=== PATIENT | female | born 1945 | race Two or more races ===

== ENCOUNTER 2017-08-01 11:31 | Inpatient (IN) | payer MEDICARE, MEDICAID ==
[~2017-08-01] VITALS: Ht 160 cm; Wt 67.8 kg
[2017-08-01 12:17] LABS: Basophils # (auto) 0.1 uL; Basophils % (auto) 1.1 % (0.0-2.0); Eosinophils # (auto) 0.5 uL; Eosinophils % (auto) 6.4 % (0.0-7.0); Hematocrit 39.6 % (36.0-46.0); Lymphocytes # (auto) 3.4 uL; Lymphocytes % (auto) 41.7 % (10.0-50.0); Mean Corpuscular Hemoglobin 29.9 pg (28.0-32.0); Mean Corpuscular Hgb Conc. 32.9 g/dL (32.0-36.0); Mean Corpuscular Volume 90.6 fL (80.0-100.0); Monocytes # (auto) 0.5 uL; Monocytes % (auto) 6.1 % (0.0-12.0); Neutrophils # (auto) 3.6 uL; Neutrophils % (auto) 44.7 % (37.0-80.0); Nucleated Red Blood Cells % 0.2 %; Platelet Count (auto) 283 10^3/uL (140-450); Red Blood Cells 4.37 10^6/uL (4.0-5.20); White Blood Cell 8.1 10^3/uL (4.4-10.8)
[2017-08-01 12:31] LABS: INR 0.95 (0.9-1.15); Prothrombin Time 10.3 sec (9.37-12.3)
[2017-08-01 12:33] LABS: Albumin 3.3 g/dL (3.4-5.0); BUN/Creatinine Ratio 11.4; Bilirubin, Total 0.4 mg/dL (0.2-1.0); Calcium 8.6 mg/dL (8.5-10.1); Magnesium 2.4 mg/dL (1.6-2.6); Potassium 4.5 mmol/L (3.5-5.1); Total Protein 7.6 g/dL (6.4-8.2)
[2017-08-01] MEDS ORDERED: InsuLIN REG 1unit/0.01ml Soln (100units/ml) SC ONE (13:45)
[2017-08-01] MEDS ORDERED: ASPirin 81 mg TAB PO ONE (14:00)
[2017-08-01 14:24] LABS: Urine Bacteria NONE SEEN /hpf (None Seen); Urine Blood Negative /uL (Negative); Urine Specific Gravity 1.005 (1.001-1.035); Urine WBC 1 /hpf (0 - 5)
[2017-08-01] MEDS ORDERED: MORPHINE SULFATE 4 MG/ML SYR/VIAL IV PRN ×2 (15:15)
[2017-08-01] MEDS ORDERED: ACETAMINOPHEN 500 MG TAB PO PRN (15:15)
[2017-08-01] MEDS ORDERED: PANTOPRAZOLE 40 MG TAB PO ONE (15:15)
[2017-08-01] MEDS ORDERED: ENALAPRIL MALEATE 2.5 MG TAB PO ONE (15:15)
[2017-08-01] MEDS ORDERED: CARVEDILOL 3.125 MG TAB PO ONE (15:15)
[2017-08-01] MEDS ORDERED: DEXTROSE (50%) 50ML SYRG IV PRN ×2 (15:15→16:30)
[2017-08-01] MEDS ORDERED: NITROGLYCERIN 0.4 MG SL TAB SL PRN (15:15)
[2017-08-01] MEDS ORDERED: LACTULOSE 20Gm/30ML SOLN PO PRN (15:15)
[2017-08-01] MEDS ORDERED: HYDROcodone-ACET 5/325MG TAB PO PRN (15:15)
[2017-08-01] MEDS ORDERED: TEMAZEPAM 15 MG CAP PO PRN (15:15)
[2017-08-01] MEDS ORDERED: LORazepam 0.5 MG TAB PO PRN (15:15)
[2017-08-01] MEDS ORDERED: NITROGLYCERIN 0.2MG/HR TOPICAL PATCH TD ONE (15:15)
[2017-08-01] MEDS: SODIUM CHLORIDE 0.9% 1,000 ML IV SCH (15:44)
[2017-08-01] MEDS ORDERED: ACCU-CHEK COMFORT CURVE STRIP VI SCH (16:00)
[2017-08-01] MEDS ORDERED: LORazepam 2MG/ML-1ML VIAL IV PRN ×2 (16:45)
[2017-08-01 17:26] LABS: Cholesterol 169 mg/dL (< 200); HDL Cholesterol 45 mg/dL (40-59); LDL Cholesterol 92 mg/dL (< 100); Triglycerides 321 mg/dL (< 150)
[2017-08-01] MEDS: ACCU-CHEK COMFORT CURVE STRIP VI SCH ×2 (17:36→22:23)
[2017-08-01] MEDS: InsuLIN REG 1unit/0.01ml Soln (100units/ml) SC SCH ×2 (17:36→22:34)
[2017-08-01] MEDS ORDERED: ALBUTEROL SULF 2.5 MG/0.5ML(0.5%) NEB SOLN NEB PRN (18:45)
[2017-08-01] MEDS ORDERED: OSELTAMIVIR 75 MG CAP PO ONE (18:45)
[2017-08-01 19:07] VITALS: BP 124/67
[2017-08-01] MEDS: DOXYCYCLINE HYC 100MG/250ML 250 ML IV SCH (19:33)
[2017-08-01 20:03] LABS: Alcohol, Urine < 3.0 mg/dL (0-5); Amphetamine Screen, Urine NEGATIVE (NEGATIVE); Barbiturate Scree,Urine NEGATIVE (NEGATIVE); Benzodiazephine Screen, Urine NEGATIVE (NEGATIVE); Cannabinoid Screen, Urine NEGATIVE (NEGATIVE); Cocaine Screen, Urine NEGATIVE (NEGATIVE); Opiate Scree,Urine NEGATIVE (NEGATIVE); Phencyclidine Screen, Urine NEGATIVE (NEGATIVE)
[2017-08-01] MEDS: OSELTAMIVIR 30 MG CAP PO SCH (20:20)
[2017-08-01 20:30] VITALS: BP 135/66
[2017-08-01 22:00] VITALS: BP 135/66
[2017-08-01] MEDS ORDERED: ATORVASTATIN 20 MG TAB PO SCH (22:00)
[2017-08-01] MEDS: CARVEDILOL 3.125 MG TAB PO SCH (22:23)
[2017-08-01] MEDS: ATORVASTATIN 20 MG TAB PO SCH (22:23)
[2017-08-02] MEDS: ALBUTEROL SULF 2.5 MG/0.5ML(0.5%) NEB SOLN NEB SCH ×4 (01:12→19:47)
[2017-08-02] MEDS: SODIUM CHLORIDE 0.9% 1,000 ML IV SCH (04:59)
[2017-08-02 05:00] VITALS: BP 110/70
[2017-08-02] MEDS: InsuLIN REG 1unit/0.01ml Soln (100units/ml) SC SCH ×4 (06:35→22:02)
[2017-08-02] MEDS: ACCU-CHEK COMFORT CURVE STRIP VI SCH ×4 (06:35→21:39)
[2017-08-02] MEDS: DOXYCYCLINE HYC 100MG/250ML 250 ML IV SCH ×2 (06:36→18:29)
[2017-08-02 07:05] LABS: Albumin 3.4 g/dL (3.4-5.0); Calcium 8.6 mg/dL (8.5-10.1)
[2017-08-02 07:07] LABS: BUN/Creatinine Ratio 16.8
[2017-08-02 07:09] LABS: Bilirubin, Total 0.4 mg/dL (0.2-1.0); Total Protein 7.1 g/dL (6.4-8.2)
[2017-08-02 09:46] VITALS: BP 108/53
[2017-08-02 09:47] LABS: Folate (Folic Acid) 8.4 ng/mL (5.38-24)
[2017-08-02] MEDS: NITROGLYCERIN 0.2MG/HR TOPICAL PATCH TD SCH (10:00)
[2017-08-02] MEDS: PANTOPRAZOLE 40 MG TAB PO SCH (10:19)
[2017-08-02] MEDS: ASPirin 81 mg TAB PO SCH (10:19)
[2017-08-02] MEDS: ENALAPRIL MALEATE 2.5 MG TAB PO SCH (10:20)
[2017-08-02] MEDS: CARVEDILOL 3.125 MG TAB PO SCH ×2 (10:21→21:58)
[2017-08-02 13:00] VITALS: BP 132/77
[2017-08-02] MEDS ORDERED: SOD CHL 0.45% 1,000 ML IV ONE (16:00)
[2017-08-02] MEDS ORDERED: LEVO-28 PO (16:27)
[2017-08-02] MEDS ORDERED: HYDR25TA35 PO (16:27)
[2017-08-02] MEDS ORDERED: INSLANTI SC (16:27)
[2017-08-02] MEDS ORDERED: LEVO50TA7 PO (16:27)
[2017-08-02 16:46] VITALS: BP 80/44
[2017-08-02] MEDS: OSELTAMIVIR 30 MG CAP PO SCH (18:29)
[2017-08-02] MEDS ORDERED: LORazepam 2MG/ML-1ML VIAL IV PRN (19:30)
[2017-08-02] MEDS: PROMETHAZINE HCL 25 MG/ML 1ML IV PRN (19:48)
[2017-08-02] MEDS: ATORVASTATIN 20 MG TAB PO SCH (21:59)
[2017-08-02 22:00] VITALS: BP 109/49
[2017-08-03] MEDS: ALBUTEROL SULF 2.5 MG/0.5ML(0.5%) NEB SOLN NEB SCH ×4 (00:23→18:30)
[2017-08-03] MEDS: PROMETHAZINE HCL 25 MG/ML 1ML IV PRN ×2 (02:03→06:07)
[2017-08-03 05:00] VITALS: BP 119/56
[2017-08-03] MEDS: ACCU-CHEK COMFORT CURVE STRIP VI SCH ×4 (06:03→21:09)
[2017-08-03] MEDS: InsuLIN REG 1unit/0.01ml Soln (100units/ml) SC SCH ×4 (06:07→21:09)
[2017-08-03] MEDS: DOXYCYCLINE HYC 100MG/250ML 250 ML IV SCH ×2 (06:07→18:16)
[2017-08-03 06:38] LABS: Basophils # (auto) 0.1 uL; Basophils % (auto) 0.7 % (0.0-2.0); Eosinophils # (auto) 0.6 uL; Eosinophils % (auto) 5.7 % (0.0-7.0); Hematocrit 37.5 % (36.0-46.0); Hemoglobin 12.6 g/dL (12.2-16.2); Lymphocytes # (auto) 4.3 uL; Lymphocytes % (auto) 44.2 % (10.0-50.0); Mean Corpuscular Hemoglobin 30.4 pg (28.0-32.0); Mean Corpuscular Hgb Conc. 33.5 g/dL (32.0-36.0); Monocytes # (auto) 0.5 uL; Monocytes % (auto) 5.2 % (0.0-12.0); Neutrophils # (auto) 4.3 uL; Neutrophils % (auto) 44.2 % (37.0-80.0); Nucleated Red Blood Cells % 0.1 %; Platelet Count (auto) 265 10^3/uL (140-450); Red Blood Cells 4.12 10^6/uL (4.0-5.20); Red Cell Distribution Width 13.8 % (11.8-14.3); White Blood Cell 9.7 10^3/uL (4.4-10.8)
[2017-08-03 06:51] LABS: BUN/Creatinine Ratio 15.1; Calcium 8.6 mg/dL (8.5-10.1); Potassium 5.3 mmol/L (3.5-5.1)
[2017-08-03 09:06] VITALS: BP 119/60
[2017-08-03] MEDS: ENALAPRIL MALEATE 2.5 MG TAB PO SCH (09:23)
[2017-08-03] MEDS: PANTOPRAZOLE 40 MG TAB PO SCH (09:24)
[2017-08-03] MEDS: CARVEDILOL 3.125 MG TAB PO SCH ×2 (09:24→21:08)
[2017-08-03] MEDS: ASPirin 81 mg TAB PO SCH (09:24)
[2017-08-03] MEDS: NITROGLYCERIN 0.2MG/HR TOPICAL PATCH TD SCH (09:26)
[2017-08-03] MEDS ORDERED: LEVO50TA7 PO (09:37)
[2017-08-03] MEDS ORDERED: LEVEMIR SC (09:37)
[2017-08-03] MEDS ORDERED: LEVOTHYROXINE SODIUM 50 MCG TAB PO ONE (10:00)
[2017-08-03 12:00] VITALS: BP 93/52
[2017-08-03] MEDS ORDERED: ASPI81CH43 PO (13:02)
[2017-08-03] MEDS ORDERED: ATOR20TA50 PO (13:02)
[2017-08-03] MEDS ORDERED: ENA2.5T PO (13:02)
[2017-08-03] MEDS ORDERED: CAR3125T PO (13:02)
[2017-08-03 17:00] VITALS: BP 94/50
[2017-08-03] MEDS: ATORVASTATIN 20 MG TAB PO SCH (21:07)
[2017-08-03 21:31] VITALS: BP 133/70
[2017-08-03] MEDS ORDERED: INSULIN LANTUS (GLARGINE) 1 /0.01ml (100units/ml) SC SCH (22:00)
[2017-08-03 23:04] VITALS: BP 119/69
[2017-08-04] MEDS: ALBUTEROL SULF 2.5 MG/0.5ML(0.5%) NEB SOLN NEB SCH ×3 (00:48→12:00)
[2017-08-04 04:45] VITALS: BP 102/57
[2017-08-04] MEDS: DOXYCYCLINE HYC 100MG/250ML 250 ML IV SCH (06:12)
[2017-08-04] MEDS: ACCU-CHEK COMFORT CURVE STRIP VI SCH ×3 (06:17→17:32)
[2017-08-04] MEDS: InsuLIN REG 1unit/0.01ml Soln (100units/ml) SC SCH ×3 (06:17→17:32)
[2017-08-04 06:22] LABS: Basophils # (auto) 0.1 uL; Basophils % (auto) 0.9 % (0.0-2.0); Eosinophils # (auto) 0.5 uL; Eosinophils % (auto) 5.8 % (0.0-7.0); Hematocrit 36.9 % (36.0-46.0); Hemoglobin 12.3 g/dL (12.2-16.2); Lymphocytes # (auto) 3.7 uL; Lymphocytes % (auto) 42.9 % (10.0-50.0); Mean Corpuscular Hemoglobin 30.1 pg (28.0-32.0); Mean Corpuscular Hgb Conc. 33.4 g/dL (32.0-36.0); Mean Corpuscular Volume 90.4 fL (80.0-100.0); Monocytes # (auto) 0.6 uL; Monocytes % (auto) 6.5 % (0.0-12.0); Neutrophils # (auto) 3.8 uL; Neutrophils % (auto) 43.9 % (37.0-80.0); Nucleated Red Blood Cells % 0.1 %; Platelet Count (auto) 269 10^3/uL (140-450); Red Blood Cells 4.08 10^6/uL (4.0-5.20); White Blood Cell 8.7 10^3/uL (4.4-10.8)
[2017-08-04 06:41] LABS: BUN/Creatinine Ratio 18.7; Calcium 8.6 mg/dL (8.5-10.1); Potassium 5.2 mmol/L (3.5-5.1)
[2017-08-04] MEDS ORDERED: LEVOTHYROXINE SODIUM 50 MCG TAB PO SCH (07:00)
[2017-08-04] MEDS: ASPirin 81 mg TAB PO SCH (08:56)
[2017-08-04] MEDS: PANTOPRAZOLE 40 MG TAB PO SCH (08:56)
[2017-08-04 09:00] VITALS: BP 90/49
[2017-08-04] MEDS: CARVEDILOL 3.125 MG TAB PO SCH (09:38)
[2017-08-04] MEDS: ENALAPRIL MALEATE 2.5 MG TAB PO SCH (09:39)
[2017-08-04] MEDS: NITROGLYCERIN 0.2MG/HR TOPICAL PATCH TD SCH (09:39)
[2017-08-04] MEDS ORDERED: INSLANTI SC (10:08)
[2017-08-04] MEDS ORDERED: LEV50T PO (10:13)
[2017-08-04] MEDS ORDERED: SODIUM POLYSTYRENE SULF 15GM/60ML SUSP PO ONE (10:15)
[2017-08-04 11:19] VITALS: BP 90/49
[2017-08-04 13:00] VITALS: BP 103/62
[2017-08-04 16:48] VITALS: BP 81/54
== END 2017-08-04 18:30 | disposition home health service (06) | DRG 638 ==
LOC: EDBD 11:31 → ER 11:31 → TELE 11:32 → TELE-EAST 18:46
PROVIDERS: ADMIT Internal Medicine; ATTEND Internal Medicine
DX: E11.65 Type 2 diabetes mellitus with hyperglycemia (principal); N18.4 Chronic kidney disease, stage 4 (severe); E11.22 Type 2 diabetes mellitus with diabetic chronic kidney disease; G45.9 Transient cerebral ischemic attack, unspecified; H53.461 Homonymous bilateral field defects, right side; R55 Syncope and collapse; I16.0 Hypertensive urgency; E78.5 Hyperlipidemia, unspecified; E03.9 Hypothyroidism, unspecified; H53.40 Unspecified visual field defects; H54.40 Blindness, one eye, unspecified eye; H54.61 Unqualified visual loss, right eye, normal vision left eye; H54.62 Unqualified visual loss, left eye, normal vision right eye; I12.9 Hypertensive chronic kidney disease with stage 1 through stage 4 chronic kidney disease, or unspecified chronic kidney disease; Z91.14 Patient's other noncompliance with medication regimen; Z79.899 Other long term (current) drug therapy; Z79.82 Long term (current) use of aspirin; Z86.73 Personal history of transient ischemic attack (TIA), and cerebral infarction without residual deficits; Z83.3 Family history of diabetes mellitus
CPT/HCPCS: 36415; 70450; 71045; 76775; 80048; 80053; 80061; 80307; 81001; 82550; 82607; 82746; 82962; 83036; 83735; 83880; 84443; 84484; 85025; 85610; 85652; 85730; 87070; 87205; 87493; 87804; 93005; 93306; 93886; 94640; 94761; 95819; 96360; 96372; 97116; 97163; 97530; G9035; J1815; J3490

== ENCOUNTER 2018-03-28 17:09 | Inpatient (IN) | payer MEDICARE, MEDICAID ==
[~2018-03-28] VITALS: Ht 157.5 cm; Wt 62.9 kg
[~2018-03-28 17:09] MED LIST: ASPI81CH43 PO; ATOR20TA50 PO; CAR3125T PO; ENA2.5T PO; INSLANTI SC; LEV50T PO; LEVO50TA7 PO
[2018-03-28] MEDS ORDERED: ONDANSETRON HCL 4 MG/2 ML VIAL IV ONE ×2 (19:15→21:45)
[2018-03-28] MEDS ORDERED: MORPHINE SULFATE 4 MG/ML SYR/VIAL IV ONE (19:15)
[2018-03-28 19:31] LABS: Basophils # (auto) 0.1 uL; Basophils % (auto) 0.4 % (0.0-2.0); Eosinophils # (auto) 0.4 uL; Eosinophils % (auto) 2.4 % (0.0-7.0); Hematocrit 39.8 % (36.0-46.0); Lymphocytes # (auto) 3.7 uL; Lymphocytes % (auto) 20.8 % (10.0-50.0); Mean Corpuscular Hemoglobin 29.2 pg (28.0-32.0); Mean Corpuscular Hgb Conc. 32.6 g/dL (32.0-36.0); Mean Corpuscular Volume 89.6 fL (80.0-100.0); Monocytes % (auto) 5.6 % (0.0-12.0); Neutrophils # (auto) 12.6 uL; Neutrophils % (auto) 70.8 % (37.0-80.0); Nucleated Red Blood Cells % 0.1 %; Platelet Count (auto) 322 10^3/uL (140-450); Red Blood Cells 4.44 10^6/uL (4.0-5.20); Red Cell Distribution Width 13.4 % (11.8-14.3); White Blood Cell 17.8 10^3/uL (4.4-10.8)
[2018-03-28 19:47] LABS: BUN/Creatinine Ratio 14.8; Calcium 9.2 mg/dL (8.5-10.1); INR 0.9 (0.9-1.15); Potassium 4.1 mmol/L (3.5-5.1); Prothrombin Time 9.7 sec (9.27-12.13)
[2018-03-28] MEDS ORDERED: ACETAMINOPHEN 500 MG TAB PO PRN (21:45)
[2018-03-28] MEDS ORDERED: HYDROmorphone HCL 2 MG/ML VL IV ONE (21:45)
[2018-03-28] MEDS: ACCU-CHEK COMFORT CURVE STRIP VI SCH (22:00)
[2018-03-28] MEDS ORDERED: DEXTROSE (50%) 50ML SYRG IV PRN (22:00)
[2018-03-28] MEDS: InsuLIN REG 1unit/0.01ml Soln (100units/ml) SC SCH (22:45)
[2018-03-29] VITALS (7 sets, daily range): BP systolic 82–120; BP diastolic 44–63
[2018-03-29] MEDS: ONDANSETRON HCL 4 MG/2 ML VIAL IV PRN (00:07)
[2018-03-29] MEDS: ACCU-CHEK COMFORT CURVE STRIP VI SCH ×4 (06:11→20:37)
[2018-03-29] MEDS: InsuLIN REG 1unit/0.01ml Soln (100units/ml) SC SCH ×4 (06:27→20:43)
[2018-03-29 06:44] LABS: Basophils # (auto) 0 uL; Basophils % (auto) 0.4 % (0.0-2.0); Eosinophils # (auto) 0.1 uL; Hematocrit 37.3 % (36.0-46.0); Hemoglobin 12.2 g/dL (12.2-16.2); Lymphocytes # (auto) 2.3 uL; Lymphocytes % (auto) 16.3 % (10.0-50.0); Mean Corpuscular Hemoglobin 29.4 pg (28.0-32.0); Mean Corpuscular Hgb Conc. 32.6 g/dL (32.0-36.0); Mean Corpuscular Volume 90.2 fL (80.0-100.0); Monocytes # (auto) 1.2 uL; Monocytes % (auto) 8.3 % (0.0-12.0); Neutrophils # (auto) 10.3 uL; Nucleated Red Blood Cells % 0.1 %; Platelet Count (auto) 268 10^3/uL (140-450); Red Blood Cells 4.14 10^6/uL (4.0-5.20); Red Cell Distribution Width 13.5 % (11.8-14.3); White Blood Cell 13.9 10^3/uL (4.4-10.8)
[2018-03-29 06:53] LABS: Urine Bacteria FEW /hpf (None Seen); Urine Blood Negative /uL (Negative); Urine Mucus FEW (None Seen); Urine Specific Gravity 1.012 (1.001-1.035); Urine WBC 6 /hpf (0 - 5)
[2018-03-29 07:04] LABS: BUN/Creatinine Ratio 14.5; Calcium 8.5 mg/dL (8.5-10.1); Potassium 4.1 mmol/L (3.5-5.1)
[2018-03-29] MEDS ORDERED: SODIUM CHLORIDE 0.9% 1,000 ML IV ONE (11:45)
[2018-03-29] MEDS ORDERED: cefTRIAXone 1GM/50ML D5W 50 ML IV ONE (13:00)
[2018-03-29] MEDS ORDERED: diphenhdrAMINE HCL 25 MG CAP PO PRN (13:15)
[2018-03-29] MEDS ORDERED: PANTOPRAZOLE 40 MG/10 ML VIAL IV ONE (13:15)
[2018-03-29] MEDS: HYDROcodone-ACET 5/325MG TAB PO PRN ×2 (13:26→20:37)
[2018-03-29] MEDS ORDERED: ENOXAPARIN SOD 60 MG/0.6 ML SYRINGE SC ONE (16:45)
[2018-03-29] MEDS ORDERED: CLOPIDOGREL BISULFATE 75 MG TAB PO ONE (16:45)
[2018-03-30] MEDS ORDERED: D5W/SOD CHLO 0.9% 1,000 ML IV SCH (00:30)
[2018-03-30] MEDS: HYDROcodone-ACET 5/325MG TAB PO PRN ×3 (00:45→19:39)
[2018-03-30 05:40] VITALS: BP 126/61
[2018-03-30 06:10] LABS: Basophils # (auto) 0 uL; Basophils % (auto) 0.3 % (0.0-2.0); Eosinophils # (auto) 0.2 uL; Eosinophils % (auto) 1.6 % (0.0-7.0); Hematocrit 33.9 % (36.0-46.0); Hemoglobin 10.9 g/dL (12.2-16.2); Lymphocytes # (auto) 2.5 uL; Lymphocytes % (auto) 22.1 % (10.0-50.0); Mean Corpuscular Hemoglobin 29.3 pg (28.0-32.0); Mean Corpuscular Hgb Conc. 32.2 g/dL (32.0-36.0); Mean Corpuscular Volume 90.9 fL (80.0-100.0); Monocytes % (auto) 8.6 % (0.0-12.0); Neutrophils # (auto) 7.7 uL; Neutrophils % (auto) 67.4 % (37.0-80.0); Nucleated Red Blood Cells % 0.1 %; Platelet Count (auto) 255 10^3/uL (140-450); Red Blood Cells 3.73 10^6/uL (4.0-5.20); Red Cell Distribution Width 13.4 % (11.8-14.3); White Blood Cell 11.4 10^3/uL (4.4-10.8)
[2018-03-30] MEDS: ACCU-CHEK COMFORT CURVE STRIP VI SCH ×5 (06:34→20:07)
[2018-03-30 06:36] LABS: Albumin 2.8 g/dL (3.4-5.0); BUN/Creatinine Ratio 11.8; Calcium 8.3 mg/dL (8.5-10.1)
[2018-03-30 06:40] LABS: Bilirubin, Total 0.3 mg/dL (0.2-1.0); Total Protein 6.7 g/dL (6.4-8.2)
[2018-03-30] MEDS: MORPHINE SULFATE 4 MG/ML SYR/VIAL IV PRN (06:58)
[2018-03-30] MEDS ORDERED: DEXTROSE (50%) 50ML SYRG IV PRN (07:00)
[2018-03-30] MEDS ORDERED: SODIUM CHLORIDE 0.9% 1,000 ML IV SCH (07:00)
[2018-03-30] MEDS: InsuLIN REG 1unit/0.01ml Soln (100units/ml) SC SCH ×5 (07:05→20:07)
[2018-03-30 07:17] LABS: Potassium 5.9 mmol/L (3.5-5.1)
[2018-03-30] MEDS ORDERED: InsuLIN REG 1unit/0.01ml Soln (100units/ml) IV ONE (08:00)
[2018-03-30] MEDS ORDERED: SODIUM POLYSTYRENE SULF 15 GM POWDER PO ONE (08:00)
[2018-03-30] MEDS ORDERED: CALCIUM GLUC 4.65meq/50ml D5AE 50 ML IV ONE (08:00)
[2018-03-30] MEDS ORDERED: DEXTROSE (50%) 50ML SYRG IV ONE ×2 (08:00→10:45)
[2018-03-30] MEDS ORDERED: SODIUM BICARBONATE 8.4 % INJ 50ML VIAL IV ONE (08:00)
[2018-03-30 08:46] VITALS: BP 129/69
[2018-03-30 09:01] LABS: Potassium 4.5 mmol/L (3.5-5.1)
[2018-03-30] MEDS: cefTRIAXone 1GM/50ML D5W 50 ML IV SCH (09:54)
[2018-03-30] MEDS ORDERED: CLOPIDOGREL BISULFATE 75 MG TAB PO SCH (10:00)
[2018-03-30] MEDS: ENOXAPARIN SOD 60 MG/0.6 ML SYRINGE SC SCH (10:00)
[2018-03-30] MEDS: PANTOPRAZOLE 40 MG/10 ML VIAL IV SCH (12:29)
[2018-03-30 12:50] VITALS: BP 121/55
[2018-03-30] MEDS: SODIUM BICARBONATE 50ML VIAL 50 ML in D5W/SOD CHL 0.45% 1,000 ML IV SCH ×2 (13:23→21:15)
[2018-03-30 16:36] LABS: Protein, Urine 16.4 mg/dL (0.0-11.9)
[2018-03-30 17:00] VITALS: BP 132/74
[2018-03-30 21:56] VITALS: BP 128/65
[2018-03-30] MEDS: ONDANSETRON HCL 4 MG/2 ML VIAL IV PRN (22:37)
[2018-03-31] MEDS: ACCU-CHEK COMFORT CURVE STRIP VI SCH ×6 (00:02→19:56)
[2018-03-31] MEDS: InsuLIN REG 1unit/0.01ml Soln (100units/ml) SC SCH ×6 (00:02→19:56)
[2018-03-31 04:56] VITALS: BP 118/67
[2018-03-31] MEDS: ONDANSETRON HCL 4 MG/2 ML VIAL IV PRN ×2 (05:14→15:43)
[2018-03-31 05:53] LABS: Albumin 3.1 g/dL (3.4-5.0); Calcium 8.6 mg/dL (8.5-10.1); Potassium 4.4 mmol/L (3.5-5.1)
[2018-03-31 05:56] LABS: BUN/Creatinine Ratio 10.5; Bilirubin, Total 0.4 mg/dL (0.2-1.0); Phosphorus 3.1 mg/dL (2.5-4.90); Total Protein 7.3 g/dL (6.4-8.2)
[2018-03-31] MEDS: SODIUM BICARBONATE 50ML VIAL 50 ML in D5W/SOD CHL 0.45% 1,000 ML IV SCH ×2 (08:11→14:53)
[2018-03-31] MEDS: HYDROcodone-ACET 5/325MG TAB PO PRN ×2 (08:35→19:56)
[2018-03-31 09:00] VITALS: BP 131/70
[2018-03-31] MEDS: cefTRIAXone 1GM/50ML D5W 50 ML IV SCH (09:44)
[2018-03-31] MEDS: ENOXAPARIN SOD 60 MG/0.6 ML SYRINGE SC SCH (09:45)
[2018-03-31] MEDS: PANTOPRAZOLE 40 MG/10 ML VIAL IV SCH (09:45)
[2018-03-31 13:00] VITALS: BP 100/51
[2018-03-31 16:55] VITALS: BP 141/78
[2018-03-31 21:35] VITALS: BP 126/62
[2018-04-01] MEDS: ACCU-CHEK COMFORT CURVE STRIP VI SCH ×6 (00:03→20:00)
[2018-04-01] MEDS: InsuLIN REG 1unit/0.01ml Soln (100units/ml) SC SCH ×6 (00:03→20:38)
[2018-04-01] MEDS: HYDROcodone-ACET 5/325MG TAB PO PRN (00:04)
[2018-04-01 04:42] VITALS: BP 121/60
[2018-04-01] MEDS: SODIUM BICARBONATE 50ML VIAL 50 ML in D5W/SOD CHL 0.45% 1,000 ML IV SCH ×2 (04:45→15:15)
[2018-04-01] MEDS: MORPHINE SULFATE 4 MG/ML SYR/VIAL IV PRN ×2 (05:18→12:27)
[2018-04-01 06:08] LABS: Basophils # (auto) 0.1 uL; Basophils % (auto) 0.5 % (0.0-2.0); Eosinophils # (auto) 0.2 uL; Eosinophils % (auto) 1.8 % (0.0-7.0); Hematocrit 33.3 % (36.0-46.0); Hemoglobin 10.8 g/dL (12.2-16.2); Lymphocytes # (auto) 1.7 uL; Lymphocytes % (auto) 13.6 % (10.0-50.0); Mean Corpuscular Hemoglobin 29.2 pg (28.0-32.0); Mean Corpuscular Hgb Conc. 32.3 g/dL (32.0-36.0); Mean Corpuscular Volume 90.3 fL (80.0-100.0); Neutrophils # (auto) 9.5 uL; Neutrophils % (auto) 76.1 % (37.0-80.0); Nucleated Red Blood Cells % 0.1 %; Platelet Count (auto) 275 10^3/uL (140-450); Red Blood Cells 3.69 10^6/uL (4.0-5.20); Red Cell Distribution Width 12.8 % (11.8-14.3); White Blood Cell 12.5 10^3/uL (4.4-10.8)
[2018-04-01 06:17] LABS: INR 0.89 (0.9-1.15); Partial Thromboplastin Time 28.7 sec (23.78-33.04); Prothrombin Time 9.6 sec (9.27-12.13)
[2018-04-01 06:37] LABS: Potassium 3.9 mmol/L (3.5-5.1)
[2018-04-01 06:42] LABS: Albumin 2.7 g/dL (3.4-5.0); BUN/Creatinine Ratio 8.8; Calcium 8.2 mg/dL (8.5-10.1)
[2018-04-01 06:45] LABS: Bilirubin, Total 0.5 mg/dL (0.2-1.0); Total Protein 6.9 g/dL (6.4-8.2)
[2018-04-01 08:56] VITALS: BP 130/70
[2018-04-01] MEDS: cefTRIAXone 1GM/50ML D5W 50 ML IV SCH ×2 (09:03→11:56)
[2018-04-01] MEDS: PANTOPRAZOLE 40 MG/10 ML VIAL IV SCH ×2 (09:03→11:45)
[2018-04-01 13:00] VITALS: BP 105/53
[2018-04-01] MEDS ORDERED: MEPERIDINE HCL (50 MG/ML) 1 ML VIAL ONE (13:09)
[2018-04-01] MEDS ORDERED: ROCURONIUM 10MG/ML 10ML VIAL IV ONE (13:09)
[2018-04-01] MEDS ORDERED: fentaNYL CITRATE 100 MCG/2 ML VL ONE ×2 (13:09→13:24)
[2018-04-01] MEDS ORDERED: SUCCINYLCHOLINE CHLORIDE 20 MG/ML 10ML VIAL IV ONE (13:09)
[2018-04-01] MEDS ORDERED: SODIUM CHLORIDE LOCK 10 ML ONE (13:09)
[2018-04-01] MEDS ORDERED: ETOMIDATE (2MG/ML) 20ML VIAL IV ONE (13:09)
[2018-04-01] MEDS ORDERED: KETOROLAC TROMETH 60MG/2ML VIAL IM ONE (13:09)
[2018-04-01] MEDS ORDERED: ONDANSETRON HCL 4 MG/2 ML VIAL IV ONE (13:09)
[2018-04-01] MEDS ORDERED: MIDAZOLAM HCL 1MG/1ML-2 ML VIAL ONE (13:09)
[2018-04-01] MEDS ORDERED: BUPIVACAINE 0.75% INJ 10ML MPV SDV IJ ONE (13:22)
[2018-04-01] MEDS ORDERED: HYDROmorphone HCL 2 MG/ML VL IV PRN (13:30)
[2018-04-01] MEDS ORDERED: METOCLOPRAMIDE HCL 5MG/ml INJ 2ml VIAL IV ONE (13:30)
[2018-04-01] MEDS ORDERED: ACCU-CHEK COMFORT CURVE STRIP VI ONE (13:30)
[2018-04-01] MEDS ORDERED: ceFAZolin 1GM VL ONE (13:38)
[2018-04-01 18:05] VITALS: BP 98/56
[2018-04-01 22:00] VITALS: BP 131/69
[2018-04-02] MEDS: InsuLIN REG 1unit/0.01ml Soln (100units/ml) SC SCH ×6 (00:32→20:24)
[2018-04-02] MEDS: SODIUM BICARBONATE 50ML VIAL 50 ML in D5W/SOD CHL 0.45% 1,000 ML IV SCH ×2 (00:34→12:06)
[2018-04-02] MEDS: ACCU-CHEK COMFORT CURVE STRIP VI SCH ×6 (04:00→20:24)
[2018-04-02 05:28] VITALS: BP 128/66
[2018-04-02 05:50] LABS: Basophils # (auto) 0.1 uL; Basophils % (auto) 0.5 % (0.0-2.0); Eosinophils # (auto) 0.4 uL; Eosinophils % (auto) 3.3 % (0.0-7.0); Hematocrit 30.3 % (36.0-46.0); Hemoglobin 9.9 g/dL (12.2-16.2); Lymphocytes # (auto) 2.2 uL; Lymphocytes % (auto) 17.5 % (10.0-50.0); Mean Corpuscular Hemoglobin 29.6 pg (28.0-32.0); Mean Corpuscular Hgb Conc. 32.7 g/dL (32.0-36.0); Mean Corpuscular Volume 90.5 fL (80.0-100.0); Monocytes # (auto) 1.2 uL; Monocytes % (auto) 9.7 % (0.0-12.0); Neutrophils # (auto) 8.6 uL; Platelet Count (auto) 265 10^3/uL (140-450); Red Blood Cells 3.34 10^6/uL (4.0-5.20); Red Cell Distribution Width 13.1 % (11.8-14.3); White Blood Cell 12.4 10^3/uL (4.4-10.8)
[2018-04-02 06:05] LABS: Potassium 3.7 mmol/L (3.5-5.1)
[2018-04-02 06:23] LABS: Albumin 2.2 g/dL (3.4-5.0); BUN/Creatinine Ratio 8.1; Bilirubin, Total 0.4 mg/dL (0.2-1.0); Calcium 7.7 mg/dL (8.5-10.1); Total Protein 6.2 g/dL (6.4-8.2)
[2018-04-02 08:40] VITALS: BP 129/78
[2018-04-02] MEDS: PANTOPRAZOLE 40 MG/10 ML VIAL IV SCH (10:25)
[2018-04-02] MEDS: cefTRIAXone 1GM/50ML D5W 50 ML IV SCH (10:25)
[2018-04-02] MEDS: HYDROcodone-ACET 5/325MG TAB PO PRN ×2 (10:32→16:35)
[2018-04-02 13:00] VITALS: BP 135/68
[2018-04-02] MEDS ORDERED: MORPHINE SULFATE 4 MG/ML SYR/VIAL IV PRN (16:30)
[2018-04-02 17:00] VITALS: BP 152/77
[2018-04-02] MEDS: SODIUM CHLORIDE 0.9% 1,000 ML IV SCH (17:24)
[2018-04-02 18:02] LABS: Urine Bacteria NONE SEEN /hpf (None Seen); Urine Blood Negative /uL (Negative); Urine Specific Gravity 1.005 (1.001-1.035); Urine WBC 1 /hpf (0 - 5)
[2018-04-02 20:00] VITALS: BP 118/57
[2018-04-02 22:00] VITALS: BP 118/57
[2018-04-03] MEDS: ACCU-CHEK COMFORT CURVE STRIP VI SCH ×6 (00:25→19:36)
[2018-04-03] MEDS: InsuLIN REG 1unit/0.01ml Soln (100units/ml) SC SCH ×6 (04:00→19:36)
[2018-04-03 05:00] VITALS: BP 131/71
[2018-04-03 05:21] LABS: Basophils # (auto) 0 uL; Basophils % (auto) 0.4 % (0.0-2.0); Eosinophils # (auto) 0.2 uL; Eosinophils % (auto) 1.5 % (0.0-7.0); Hematocrit 30.1 % (36.0-46.0); Hemoglobin 9.8 g/dL (12.2-16.2); Lymphocytes % (auto) 15.9 % (10.0-50.0); Mean Corpuscular Hemoglobin 29.1 pg (28.0-32.0); Mean Corpuscular Hgb Conc. 32.5 g/dL (32.0-36.0); Mean Corpuscular Volume 89.5 fL (80.0-100.0); Monocytes # (auto) 1.2 uL; Monocytes % (auto) 9.2 % (0.0-12.0); Neutrophils # (auto) 9.2 uL; Nucleated Red Blood Cells % 0.1 %; Platelet Count (auto) 294 10^3/uL (140-450); Red Blood Cells 3.36 10^6/uL (4.0-5.20); White Blood Cell 12.7 10^3/uL (4.4-10.8)
[2018-04-03] MEDS: SODIUM CHLORIDE 0.9% 1,000 ML IV SCH ×2 (05:27→19:36)
[2018-04-03 05:37] LABS: Albumin 2.2 g/dL (3.4-5.0); BUN/Creatinine Ratio 9.9; Calcium 7.6 mg/dL (8.5-10.1); Magnesium 1.8 mg/dL (1.6-2.6)
[2018-04-03 05:40] LABS: Bilirubin, Total 0.4 mg/dL (0.2-1.0); Total Protein 6.5 g/dL (6.4-8.2)
[2018-04-03 08:51] VITALS: BP 121/69
[2018-04-03] MEDS: cefTRIAXone 1GM/50ML D5W 50 ML IV SCH (09:10)
[2018-04-03] MEDS: PANTOPRAZOLE 40 MG/10 ML VIAL IV SCH (09:10)
[2018-04-03] MEDS: HYDROcodone-ACET 5/325MG TAB PO PRN ×3 (09:11→19:37)
[2018-04-03 12:56] VITALS: BP 119/60
[2018-04-03] MEDS ORDERED: MAGNESIUM SULFATE 1GM/100ML 100 ML IV ONE (13:00)
[2018-04-03 17:00] VITALS: BP 128/64
[2018-04-03 20:00] VITALS: BP 126/55
[2018-04-03 22:00] VITALS: BP 126/55
[2018-04-04] MEDS: InsuLIN REG 1unit/0.01ml Soln (100units/ml) SC SCH ×7 (00:30→20:19)
[2018-04-04] MEDS: ACCU-CHEK COMFORT CURVE STRIP VI SCH ×6 (04:26→20:19)
[2018-04-04 05:00] VITALS: BP 125/70
[2018-04-04 05:32] LABS: Basophils # (auto) 0 uL; Basophils % (auto) 0.4 % (0.0-2.0); Eosinophils # (auto) 0.3 uL; Eosinophils % (auto) 3.4 % (0.0-7.0); Hematocrit 28.6 % (36.0-46.0); Hemoglobin 9.5 g/dL (12.2-16.2); Lymphocytes # (auto) 2.4 uL; Lymphocytes % (auto) 24.9 % (10.0-50.0); Mean Corpuscular Hemoglobin 29.9 pg (28.0-32.0); Mean Corpuscular Hgb Conc. 33.3 g/dL (32.0-36.0); Mean Corpuscular Volume 89.6 fL (80.0-100.0); Monocytes # (auto) 1.1 uL; Neutrophils # (auto) 5.9 uL; Neutrophils % (auto) 60.3 % (37.0-80.0); Nucleated Red Blood Cells % 0.1 %; Platelet Count (auto) 322 10^3/uL (140-450); Red Cell Distribution Width 13.1 % (11.8-14.3); White Blood Cell 9.7 10^3/uL (4.4-10.8)
[2018-04-04 05:50] LABS: Calcium 8.3 mg/dL (8.5-10.1); Potassium 4.3 mmol/L (3.5-5.1)
[2018-04-04 05:53] LABS: BUN/Creatinine Ratio 11.9
[2018-04-04] MEDS: HYDROcodone-ACET 5/325MG TAB PO PRN (06:26)
[2018-04-04] MEDS: SODIUM CHLORIDE 0.9% 1,000 ML IV SCH ×2 (08:30→16:30)
[2018-04-04 08:59] VITALS: BP_SYST 125; BP_SYST 86; BP_DIAS 35; BP_DIAS 65
[2018-04-04] MEDS: PANTOPRAZOLE 40 MG/10 ML VIAL IV SCH (12:03)
[2018-04-04] MEDS: cefTRIAXone 1GM/50ML D5W 50 ML IV SCH (12:03)
[2018-04-04 12:30] VITALS: BP_SYST 113; BP_SYST 116; BP_DIAS 38; BP_DIAS 73
[2018-04-04] MEDS ORDERED: DOCUSATE SOD 100 MG CAP PO PRN (14:00)
[2018-04-04 17:00] VITALS: BP 138/76
[2018-04-04] MEDS: Glucerna Carbsteady SHAKE Vanilla 8oz PO SCH (18:00)
[2018-04-04] MEDS: Pro-Stat SF 30ml Vanilla PO SCH (18:00)
[2018-04-04 22:00] VITALS: BP 153/72
[2018-04-05] MEDS: ACCU-CHEK COMFORT CURVE STRIP VI SCH ×4 (00:30→12:00)
[2018-04-05] MEDS: HYDROcodone-ACET 5/325MG TAB PO PRN ×3 (01:16→15:10)
[2018-04-05] MEDS: SODIUM CHLORIDE 0.9% 1,000 ML IV SCH ×2 (02:15→12:15)
[2018-04-05] MEDS: InsuLIN REG 1unit/0.01ml Soln (100units/ml) SC SCH ×3 (04:20→12:00)
[2018-04-05 05:02] VITALS: BP 153/91
[2018-04-05 07:49] LABS: Basophils # (auto) 0 uL; Basophils % (auto) 0.6 % (0.0-2.0); Eosinophils # (auto) 0.4 uL; Hematocrit 31.3 % (36.0-46.0); Lymphocytes # (auto) 2.6 uL; Lymphocytes % (auto) 32.1 % (10.0-50.0); Mean Corpuscular Hemoglobin 28.6 pg (28.0-32.0); Mean Corpuscular Hgb Conc. 32.1 g/dL (32.0-36.0); Mean Corpuscular Volume 89.2 fL (80.0-100.0); Monocytes # (auto) 0.7 uL; Monocytes % (auto) 8.7 % (0.0-12.0); Neutrophils # (auto) 4.4 uL; Neutrophils % (auto) 53.6 % (37.0-80.0); Nucleated Red Blood Cells % 0.1 %; Platelet Count (auto) 415 10^3/uL (140-450); Red Blood Cells 3.51 10^6/uL (4.0-5.20); Red Cell Distribution Width 13.2 % (11.8-14.3); White Blood Cell 8.1 10^3/uL (4.4-10.8)
[2018-04-05 08:00] VITALS: BP 117/59
[2018-04-05 08:13] LABS: Calcium 8.7 mg/dL (8.5-10.1); Potassium 4.4 mmol/L (3.5-5.1)
[2018-04-05] MEDS: Glucerna Carbsteady SHAKE Vanilla 8oz PO SCH (08:16)
[2018-04-05] MEDS: Pro-Stat SF 30ml Vanilla PO SCH (08:16)
[2018-04-05 08:18] LABS: Albumin 2.4 g/dL (3.4-5.0); BUN/Creatinine Ratio 12.8; Bilirubin, Total 0.4 mg/dL (0.2-1.0); Total Protein 7.4 g/dL (6.4-8.2)
[2018-04-05] MEDS: cefTRIAXone 1GM/50ML D5W 50 ML IV SCH (08:40)
[2018-04-05] MEDS: PANTOPRAZOLE 40 MG/10 ML VIAL IV SCH (10:23)
[2018-04-05] MEDS: ONDANSETRON HCL 4 MG/2 ML VIAL IV PRN (12:16)
[2018-04-05 12:39] VITALS: BP 159/77
[2018-04-05 14:39] VITALS: BP 140/74
[2018-04-05] MEDS ORDERED: LACTULOSE 20Gm/30ML SOLN PO ONE (14:45)
[2018-04-05 16:38] VITALS: BP 133/68
== END 2018-04-05 16:50 | DRG 853 ==
LOC: ER 17:09 → EDBD 17:09 → OVERFLOW 17:10 → MERGE 17:10 → WEST WING 22:47
PROVIDERS: ADMIT Nurse Practitioner Family; ATTEND Family Medicine
PROC: 0YU90KZ Supplement Right Lower Extremity with Nonautologous Tissue Substitute, Open Approach (ICD-10-PCS; 2018-04-01)
PROC: 0QSJ04Z Reposition Right Fibula with Internal Fixation Device, Open Approach (ICD-10-PCS; principal; 2018-04-01 13:36)
DX: A41.9 Sepsis, unspecified organism (principal); N17.0 Acute kidney failure with tubular necrosis; N39.0 Urinary tract infection, site not specified; N18.4 Chronic kidney disease, stage 4 (severe); S82.841A Displaced bimalleolar fracture of right lower leg, initial encounter for closed fracture; E11.21 Type 2 diabetes mellitus with diabetic nephropathy; E11.22 Type 2 diabetes mellitus with diabetic chronic kidney disease; I12.9 Hypertensive chronic kidney disease with stage 1 through stage 4 chronic kidney disease, or unspecified chronic kidney disease; E87.5 Hyperkalemia; E11.65 Type 2 diabetes mellitus with hyperglycemia; D64.9 Anemia, unspecified; E03.9 Hypothyroidism, unspecified; E86.0 Dehydration; M81.0 Age-related osteoporosis without current pathological fracture; S82.842A Displaced bimalleolar fracture of left lower leg, initial encounter for closed fracture; N25.89 Other disorders resulting from impaired renal tubular function; R79.1 Abnormal coagulation profile; W18.39XA Other fall on same level, initial encounter; Y93.89 Activity, other specified; Z90.49 Acquired absence of other specified parts of digestive tract; Y92.89 Other specified places as the place of occurrence of the external cause; Y99.8 Other external cause status; Z83.3 Family history of diabetes mellitus; Z82.49 Family history of ischemic heart disease and other diseases of the circulatory system; Z83.79 Family history of other diseases of the digestive system; Z90.710 Acquired absence of both cervix and uterus
CPT/HCPCS: 36415; 71045; 73600; 73610; 76775; 78582; 80048; 80053; 81001; 82306; 82570; 82962; 83036; 83605; 83735; 83970; 84100; 84132; 84156; 84300; 84484; 85025; 85379; 85610; 85730; 86850; 86900; 86901; 87040; 87086; 93005; 93970; 96374; 96375; 96376; 97110; 97163; 97530; A6257; C1713; C1781; C9113; G0378; J0330; J0610; J0690; J0696; J1815; J1885; J2250; J2405; J3490; J7042

== ENCOUNTER → 2018-07-20 | Outpatient (CLI) | payer MEDICARE, MEDICAID ==
[2018-07-20 11:19] LABS: Urine Bacteria NONE SEEN /hpf (None Seen); Urine Blood Negative /uL (Negative); Urine Specific Gravity 1.011 (1.001-1.035); Urine WBC 1 /hpf (0 - 5)
[2018-07-20 11:31] LABS: Albumin 3.4 g/dL (3.4-5.0); Calcium 8.5 mg/dL (8.5-10.1); Potassium 4.6 mmol/L (3.5-5.1)
[2018-07-20 11:35] LABS: BUN/Creatinine Ratio 23.9; Bilirubin, Total 0.3 mg/dL (0.2-1.0); Total Protein 7.9 g/dL (6.4-8.2)
[2018-07-20 14:06] LABS: Basophils # (auto) 0.1 uL; Basophils % (auto) 0.6 % (0.0-2.0); Eosinophils # (auto) 0.7 uL; Hematocrit 36.2 % (36.0-46.0); Hemoglobin 11.9 g/dL (12.2-16.2); Lymphocytes # (auto) 2.3 uL; Lymphocytes % (auto) 26.7 % (10.0-50.0); Mean Corpuscular Hemoglobin 28.6 pg (28.0-32.0); Mean Corpuscular Hgb Conc. 32.8 g/dL (32.0-36.0); Mean Corpuscular Volume 87.2 fL (80.0-100.0); Monocytes # (auto) 0.5 uL; Neutrophils # (auto) 5.1 uL; Neutrophils % (auto) 58.7 % (37.0-80.0); Platelet Count (auto) 393 10^3/uL (140-450); Red Blood Cells 4.15 10^6/uL (4.0-5.20); Red Cell Distribution Width 14.6 % (11.8-14.3); White Blood Cell 8.7 10^3/uL (4.4-10.8)
== END | disposition home or self-care (01) ==
LOC: LAB 09:34
PROVIDERS: ATTEND Internal Medicine
DX: E11.9 Type 2 diabetes mellitus without complications (principal); I10 Essential (primary) hypertension; E78.5 Hyperlipidemia, unspecified; E03.9 Hypothyroidism, unspecified
CPT/HCPCS: 36415; 80053; 81001; 82607; 83036; 84443; 85025; 85652

== ENCOUNTER → 2018-09-07 | Outpatient (CLI) | payer MEDICARE, MEDICAID ==
[2018-09-07 12:40] LABS: BUN/Creatinine Ratio 18.8; Potassium 4.8 mmol/L (3.5-5.1)
== END | disposition home or self-care (01) ==
LOC: LAB 11:25
PROVIDERS: ATTEND Internal Medicine
DX: E03.9 Hypothyroidism, unspecified (principal); I12.9 Hypertensive chronic kidney disease with stage 1 through stage 4 chronic kidney disease, or unspecified chronic kidney disease; E11.22 Type 2 diabetes mellitus with diabetic chronic kidney disease; N18.4 Chronic kidney disease, stage 4 (severe)
CPT/HCPCS: 36415; 80048; 80061; 82306; 84443

== ENCOUNTER → 2018-10-11 | Outpatient (CLI) | payer MEDICARE, MEDICAID | END | disposition home or self-care (01) | LOC: LAB 11:02 | PROVIDERS: ATTEND Internal Medicine | DX: E11.9 Type 2 diabetes mellitus without complications (principal) | CPT/HCPCS: 36415; 83036 ==

== ENCOUNTER → 2019-01-12 | Outpatient (CLI) | payer MEDICARE, MEDICAID ==
[~2019-01-12] MED LIST changes: -ENA2.5T PO; +ENAL2.5T2 PO
== END | disposition home or self-care (01) ==
LOC: XY 09:00
PROVIDERS: ATTEND Internal Medicine
DX: I70.203 Unspecified atherosclerosis of native arteries of extremities, bilateral legs (principal); M79.89 Other specified soft tissue disorders
CPT/HCPCS: 93925

== ENCOUNTER 2021-10-04 16:16 | Inpatient (IN) | payer MEDICARE, MEDICAID ==
[~2021-10-04] VITALS: Ht 162.6 cm; Wt 55.3 kg
[~2021-10-04 16:16] MED LIST changes: +ENAL2.5T11 PO; -ENAL2.5T2 PO
[2021-10-04] MEDS ORDERED: SODIUM CHLORIDE 0.9% 1,000 ML IV ONE (18:30)
[2021-10-04 19:04] LABS: Basophils # (auto) 0.1 10 ^3/uL (0-0.2); Basophils % (auto) 1.5 % (0.0-2.0); Eosinophils # (auto) 0.4 10 ^3/uL (0-0.8); Eosinophils % (auto) 5.6 % (0.0-7.0); Hematocrit 34.9 % (36.0-46.0); Hemoglobin 11.3 g/dL (12.2-16.2); Lymphocytes # (auto) 2.1 10 ^3/uL (0.4-5.4); Lymphocytes % (auto) 30.3 % (10.0-50.0); Mean Corpuscular Hemoglobin 28.5 pg (28.0-32.0); Mean Corpuscular Hgb Conc. 32.5 g/dL (32.0-36.0); Mean Corpuscular Volume 87.8 fL (80.0-100.0); Monocytes # (auto) 0.4 10 ^3/uL (0-1.3); Monocytes % (auto) 5.8 % (0.0-12.0); Neutrophils # (auto) 3.9 10 ^3/uL (1.6-8.6); Neutrophils % (auto) 56.8 % (37.0-80.0); Nucleated Red Blood Cells % 0.1 %; Red Blood Cells 3.97 10^6/uL (4.0-5.20); Red Cell Distribution Width 15.2 % (11.8-14.3); White Blood Cell 6.8 10^3/uL (4.4-10.8)
[2021-10-04 19:18] LABS: Albumin 3.3 g/dL (3.4-5.0); BUN/Creatinine Ratio 17.2; Calcium 7.8 mg/dL (8.5-10.1); Potassium 4.9 mmol/L (3.5-5.1)
[2021-10-04 19:21] LABS: Bilirubin, Total 0.3 mg/dL (0.2-1.0); Total Protein 7.5 g/dL (6.4-8.2)
[2021-10-04] MEDS ORDERED: LACTATED RINGER'S 1,000 ML IV ONE (20:45)
[2021-10-04] MEDS ORDERED: ONDANSETRON HCL 4 MG/2 ML VIAL IV PRN (21:45)
[2021-10-04] MEDS ORDERED: PANTOPRAZOLE 40 MG TAB PO ONE (21:45)
[2021-10-04] MEDS: SODIUM CHLOR 0.9% PF (SALINE LOCK) 10ML VIAL/SYR IV SCH (21:51)
[2021-10-04 23:50] VITALS: BP 130/68
[2021-10-04 23:53] LABS: Creatinine, Urine 14 mg/dL (30.0-125.0); Sodium Urine 113 mmol/L (40-220)
[2021-10-05] VITALS (7 sets, daily range): BP systolic 103–174; BP diastolic 49–77
[2021-10-05] MEDS: SODIUM CHLOR 0.9% PF (SALINE LOCK) 10ML VIAL/SYR IV SCH (05:00)
[2021-10-05] MEDS ORDERED: CETI10TA2 PO (09:00)
[2021-10-05] MEDS ORDERED: DONETAB5 PO (09:00)
[2021-10-05] MEDS ORDERED: OMEP20TA PO (09:00)
[2021-10-05] MEDS ORDERED: ACET-1156 PO (09:00)
[2021-10-05] MEDS: SODIUM CHLORIDE 0.9% 1,000 ML IV SCH (12:25)
[2021-10-05] MEDS ORDERED: ACETAMINOPHEN 325 MG TAB PO PRN (16:15)
[2021-10-05 16:33] LABS: Amylase 87 U/L (25-115); Lipase 205 U/L (73-393)
[2021-10-05] MEDS: ACETAMINOPHEN 325 MG TAB PO PRN (16:49)
[2021-10-05] MEDS: hydrALAZINE HCL 20 MG/ML VL IV PRN (16:49)
[2021-10-05 18:09] LABS: Urine Bacteria NONE SEEN /hpf (None Seen); Urine Blood Negative /uL (Negative); Urine Specific Gravity 1.008 (1.001-1.035); Urine WBC <1 /hpf (0 - 5)
[2021-10-06] MEDS: SODIUM CHLORIDE 0.9% 1,000 ML IV SCH ×3 (00:01→10:00)
[2021-10-06 05:00] VITALS: BP 110/57
[2021-10-06 06:33] LABS: Potassium 4.4 mmol/L (3.5-5.1)
[2021-10-06 06:48] LABS: Albumin 2.8 g/dL (3.4-5.0); BUN/Creatinine Ratio 13.6; Bilirubin, Total 0.4 mg/dL (0.2-1.0); Calcium 7.5 mg/dL (8.5-10.1); Total Protein 6.5 g/dL (6.4-8.2)
[2021-10-06 07:18] LABS: Basophils # (auto) 0.1 10 ^3/uL (0-0.2); Eosinophils # (auto) 0.5 10 ^3/uL (0-0.8); Eosinophils % (auto) 7.4 % (0.0-7.0); Hematocrit 30.9 % (36.0-46.0); Lymphocytes # (auto) 2.5 10 ^3/uL (0.4-5.4); Lymphocytes % (auto) 40.7 % (10.0-50.0); Mean Corpuscular Hemoglobin 28.9 pg (28.0-32.0); Mean Corpuscular Hgb Conc. 32.5 g/dL (32.0-36.0); Monocytes # (auto) 0.5 10 ^3/uL (0-1.3); Monocytes % (auto) 7.6 % (0.0-12.0); Neutrophils # (auto) 2.7 10 ^3/uL (1.6-8.6); Neutrophils % (auto) 43.3 % (37.0-80.0); Nucleated Red Blood Cells % 0.1 %; Red Blood Cells 3.47 10^6/uL (4.0-5.20); Red Cell Distribution Width 14.8 % (11.8-14.3); White Blood Cell 6.2 10^3/uL (4.4-10.8)
[2021-10-06 09:25] VITALS: BP 133/54
[2021-10-06 13:00] VITALS: BP 124/50
[2021-10-06 17:12] VITALS: BP 145/61
[2021-10-06] MEDS: ACETAMINOPHEN 325 MG TAB PO PRN (20:15)
[2021-10-06] MEDS: LOPERAMIDE HCL 2 MG CAP/TAB PO PRN (20:15)
[2021-10-06] MEDS: hydrALAZINE HCL 20 MG/ML VL IV PRN (21:27)
[2021-10-06 22:00] VITALS: BP 168/91
[2021-10-07] MEDS: SODIUM CHLORIDE 0.9% 1,000 ML IV SCH (02:40)
[2021-10-07 05:00] VITALS: BP 122/52
[2021-10-07] MEDS: LEVOTHYROXINE SODIUM 50 MCG TAB PO SCH (06:17)
[2021-10-07 06:30] LABS: Basophils # (auto) 0.1 10 ^3/uL (0-0.2); Basophils % (auto) 1.1 % (0.0-2.0); Eosinophils # (auto) 0.6 10 ^3/uL (0-0.8); Eosinophils % (auto) 8.8 % (0.0-7.0); Hematocrit 30.2 % (36.0-46.0); Hemoglobin 9.7 g/dL (12.2-16.2); Lymphocytes # (auto) 3.7 10 ^3/uL (0.4-5.4); Lymphocytes % (auto) 53.6 % (10.0-50.0); Mean Corpuscular Hemoglobin 28.9 pg (28.0-32.0); Mean Corpuscular Hgb Conc. 32.3 g/dL (32.0-36.0); Mean Corpuscular Volume 89.5 fL (80.0-100.0); Monocytes # (auto) 0.6 10 ^3/uL (0-1.3); Monocytes % (auto) 8.5 % (0.0-12.0); Neutrophils # (auto) 1.9 10 ^3/uL (1.6-8.6); Nucleated Red Blood Cells % 0.1 %; Red Blood Cells 3.37 10^6/uL (4.0-5.20); Red Cell Distribution Width 15.2 % (11.8-14.3); White Blood Cell 6.8 10^3/uL (4.4-10.8)
[2021-10-07 06:43] LABS: INR 1.05 (0.9-1.15)
[2021-10-07 06:47] LABS: Calcium 7.2 mg/dL (8.5-10.1); Potassium 4.8 mmol/L (3.5-5.1)
[2021-10-07 09:00] VITALS: BP 132/59
[2021-10-07] MEDS: LOPERAMIDE HCL 2 MG CAP/TAB PO PRN (10:54)
[2021-10-07] MEDS: SOD CHL 0.45% 1,000 ML IV SCH (11:00)
[2021-10-07] MEDS ORDERED: metroNIDAZOLE 500 MG TAB PO ONE (11:00)
[2021-10-07 12:55] VITALS: BP 130/63
[2021-10-07 17:00] VITALS: BP 158/71
[2021-10-07] MEDS: metroNIDAZOLE 500 MG TAB PO SCH ×2 (17:30→21:31)
[2021-10-07 22:00] VITALS: BP 165/97
[2021-10-07 23:04] VITALS: BP 146/75
[2021-10-08] VITALS (8 sets, daily range): BP systolic 110–177; BP diastolic 49–91
[2021-10-08] MEDS: SOD CHL 0.45% 1,000 ML IV SCH (02:42)
[2021-10-08] MEDS: metroNIDAZOLE 500 MG TAB PO SCH ×3 (06:16→22:05)
[2021-10-08] MEDS: LEVOTHYROXINE SODIUM 50 MCG TAB PO SCH (06:16)
[2021-10-08 06:32] LABS: Basophils # (auto) 0.1 10 ^3/uL (0-0.2); Basophils % (auto) 1.1 % (0.0-2.0); Eosinophils # (auto) 0.6 10 ^3/uL (0-0.8); Eosinophils % (auto) 10.6 % (0.0-7.0); Hemoglobin 9.7 g/dL (12.2-16.2); Lymphocytes # (auto) 2.5 10 ^3/uL (0.4-5.4); Lymphocytes % (auto) 41.6 % (10.0-50.0); Mean Corpuscular Hemoglobin 29.4 pg (28.0-32.0); Mean Corpuscular Hgb Conc. 33.3 g/dL (32.0-36.0); Mean Corpuscular Volume 88.1 fL (80.0-100.0); Monocytes # (auto) 0.4 10 ^3/uL (0-1.3); Monocytes % (auto) 7.6 % (0.0-12.0); Neutrophils # (auto) 2.3 10 ^3/uL (1.6-8.6); Neutrophils % (auto) 39.1 % (37.0-80.0); Red Blood Cells 3.29 10^6/uL (4.0-5.20); Red Cell Distribution Width 14.9 % (11.8-14.3); White Blood Cell 5.9 10^3/uL (4.4-10.8)
[2021-10-08 06:58] LABS: Calcium 7.3 mg/dL (8.5-10.1)
[2021-10-08 07:00] LABS: BUN/Creatinine Ratio 9.7
[2021-10-08] MEDS: FLORASTOR (S. BOULARDII) 250 MG CAP PO SCH (09:50)
[2021-10-08] MEDS ORDERED: GOLYTELY 4L KIT PO ONE (10:15)
[2021-10-08] MEDS: SODIUM BICARBONATE 50ML VIAL 50 ML in D5W 5% 1,000 ML IV SCH (11:34)
[2021-10-08] MEDS: ACETAMINOPHEN 325 MG TAB PO PRN (22:06)
[2021-10-09] VITALS (7 sets, daily range): BP systolic 108–193; BP diastolic 51–91
[2021-10-09] MEDS: ACETAMINOPHEN 325 MG TAB PO PRN (00:01)
[2021-10-09] MEDS: SODIUM BICARBONATE 50ML VIAL 50 ML in D5W 5% 1,000 ML IV SCH ×2 (00:15→14:45)
[2021-10-09] MEDS: hydrALAZINE HCL 20 MG/ML VL IV PRN (05:21)
[2021-10-09 06:21] LABS: BUN/Creatinine Ratio 7.5; Calcium 7.5 mg/dL (8.5-10.1); Potassium 4.4 mmol/L (3.5-5.1)
[2021-10-09] MEDS: LEVOTHYROXINE SODIUM 50 MCG TAB PO SCH (06:49)
[2021-10-09] MEDS: metroNIDAZOLE 500 MG TAB PO SCH ×3 (06:49→22:29)
[2021-10-09] MEDS ORDERED: SODIUM CHLORIDE LOCK 10 ML ONE (08:31)
[2021-10-09] MEDS ORDERED: fentaNYL CITRATE 100 MCG/2 ML VL ONE (08:32)
[2021-10-09] MEDS ORDERED: diphenhdrAMINE HCL 50 MG/1 ML VL ONE (08:32)
[2021-10-09] MEDS ORDERED: MIDAZOLAM HCL 5 MG/ML-1ML VIAL ONE (08:32)
[2021-10-09] MEDS: FLORASTOR (S. BOULARDII) 250 MG CAP PO SCH (09:27)
[2021-10-09] MEDS ORDERED: LOPERAMIDE HCL 2 MG CAP/TAB PO PRN (11:30)
[2021-10-10] MEDS: SODIUM BICARBONATE 50ML VIAL 50 ML in D5W 5% 1,000 ML IV SCH ×2 (04:15→18:13)
[2021-10-10 05:00] VITALS: BP 128/48
[2021-10-10] MEDS: metroNIDAZOLE 500 MG TAB PO SCH ×2 (05:53→11:45)
[2021-10-10 06:21] LABS: Basophils # (auto) 0.1 10 ^3/uL (0-0.2); Basophils % (auto) 0.7 % (0.0-2.0); Eosinophils # (auto) 0.3 10 ^3/uL (0-0.8); Eosinophils % (auto) 3.3 % (0.0-7.0); Hematocrit 30.6 % (36.0-46.0); Hemoglobin 9.9 g/dL (12.2-16.2); Lymphocytes # (auto) 3.3 10 ^3/uL (0.4-5.4); Lymphocytes % (auto) 31.4 % (10.0-50.0); Mean Corpuscular Hemoglobin 28.4 pg (28.0-32.0); Mean Corpuscular Hgb Conc. 32.4 g/dL (32.0-36.0); Mean Corpuscular Volume 87.8 fL (80.0-100.0); Monocytes # (auto) 0.7 10 ^3/uL (0-1.3); Monocytes % (auto) 6.9 % (0.0-12.0); Neutrophils # (auto) 6.1 10 ^3/uL (1.6-8.6); Neutrophils % (auto) 57.7 % (37.0-80.0); Nucleated Red Blood Cells % 0.2 %; Red Blood Cells 3.49 10^6/uL (4.0-5.20); Red Cell Distribution Width 15.2 % (11.8-14.3); White Blood Cell 10.5 10^3/uL (4.4-10.8)
[2021-10-10 06:35] LABS: BUN/Creatinine Ratio 6.5; Potassium 4.2 mmol/L (3.5-5.1)
[2021-10-10] MEDS: LEVOTHYROXINE SODIUM 50 MCG TAB PO SCH (06:48)
[2021-10-10 08:00] VITALS: BP 164/76
[2021-10-10] MEDS ORDERED: LOP2C PO (10:12)
[2021-10-10] MEDS ORDERED: FERR-7 PO (10:15)
[2021-10-10] MEDS: FLORASTOR (S. BOULARDII) 250 MG CAP PO SCH (11:45)
[2021-10-10 12:00] VITALS: BP 86/43
[2021-10-10 13:13] VITALS: BP 193/89
[2021-10-10 16:00] VITALS: BP 107/48
== END 2021-10-10 18:00 | disposition home or self-care (01) | DRG 391 ==
LOC: ER 16:16 → EDBD 16:16 → OVERFLOW 21:39 → CENTRAL 22:55
PROVIDERS: ADMIT Internal Medicine; ATTEND Internal Medicine
PROC: 0DBM8ZX Excision of Descending Colon, Via Natural or Artificial Opening Endoscopic, Diagnostic (ICD-10-PCS; principal; 2021-10-09 11:10)
DX: R19.7 Diarrhea, unspecified (principal); N17.0 Acute kidney failure with tubular necrosis; E44.0 Moderate protein-calorie malnutrition; Z68.1 Body mass index [BMI] 19.9 or less, adult; K57.30 Diverticulosis of large intestine without perforation or abscess without bleeding; K63.5 Polyp of colon; E11.9 Type 2 diabetes mellitus without complications; E78.00 Pure hypercholesterolemia, unspecified; E86.0 Dehydration; F03.90 Unspecified dementia, unspecified severity, without behavioral disturbance, psychotic disturbance, mood disturbance, and anxiety; Z20.822 Contact with and (suspected) exposure to COVID-19; E03.9 Hypothyroidism, unspecified; E78.5 Hyperlipidemia, unspecified; K59.00 Constipation, unspecified; K64.8 Other hemorrhoids; E11.22 Type 2 diabetes mellitus with diabetic chronic kidney disease; D63.8 Anemia in other chronic diseases classified elsewhere; I12.9 Hypertensive chronic kidney disease with stage 1 through stage 4 chronic kidney disease, or unspecified chronic kidney disease; K44.9 Diaphragmatic hernia without obstruction or gangrene; N18.9 Chronic kidney disease, unspecified; Z86.16 Personal history of COVID-19; Z90.49 Acquired absence of other specified parts of digestive tract
CPT/HCPCS: 36415; 45380; 71045; 74176; 80048; 80053; 81001; 82150; 82570; 82784; 83036; 83516; 83605; 83690; 84300; 84443; 85025; 85048; 85610; 86255; 87045; 87177; 87427; 87493; 93005; 96361; 96374; 97163; G0378; J2250; J2405

== ENCOUNTER 2021-11-04 16:21 | Inpatient (IN) | payer MEDICARE, MEDICAID ==
[~2021-11-04] VITALS: Ht 157.5 cm; Wt 49.9 kg
[~2021-11-04 16:21] MED LIST changes: +ACET-1156 PO; -ASPI81CH43 PO; -ATOR20TA50 PO; -CAR3125T PO; +CETI10TA2 PO; +DONETAB5 PO; -ENAL2.5T11 PO; +FERR-7 PO; -INSLANTI SC; -LEV50T PO; -LEVO50TA7 PO; +LOP2C PO; +OMEP20TA PO
[2021-11-04] MEDS ORDERED: SODIUM CHLORIDE 0.9% 2,250 ML IV ONE (17:15)
[2021-11-04] MEDS ORDERED: SODIUM CHLORIDE 0.9% 1,350 ML IV ONE (19:00)
[2021-11-04 19:01] LABS: Basophils # (auto) 0.1 10 ^3/uL (0-0.2); Basophils % (auto) 1.2 % (0.0-2.0); Eosinophils # (auto) 0.4 10 ^3/uL (0-0.8); Eosinophils % (auto) 5.3 % (0.0-7.0); Lymphocytes # (auto) 2.1 10 ^3/uL (0.4-5.4); Lymphocytes % (auto) 30.2 % (10.0-50.0); Mean Corpuscular Hemoglobin 29.4 pg (28.0-32.0); Mean Corpuscular Hgb Conc. 32.4 g/dL (32.0-36.0); Mean Corpuscular Volume 90.6 fL (80.0-100.0); Monocytes # (auto) 0.5 10 ^3/uL (0-1.3); Monocytes % (auto) 7.2 % (0.0-12.0); Neutrophils # (auto) 3.9 10 ^3/uL (1.6-8.6); Neutrophils % (auto) 56.1 % (37.0-80.0); Nucleated Red Blood Cells % 0.1 %; Red Blood Cells 3.76 10^6/uL (4.0-5.20); Red Cell Distribution Width 15.2 % (11.8-14.3)
[2021-11-04 19:17] LABS: INR 0.99 (0.9-1.15); Partial Thromboplastin Time 29.3 sec (23.6-33.0)
[2021-11-04 19:19] LABS: Albumin 3.1 g/dL (3.4-5.0); BUN/Creatinine Ratio 17.9; Calcium 7.6 mg/dL (8.5-10.1); Potassium 5.2 mmol/L (3.5-5.1)
[2021-11-04 19:22] LABS: Bilirubin, Total 0.2 mg/dL (0.2-1.0); Total Protein 7.6 g/dL (6.4-8.2)
[2021-11-04] MEDS ORDERED: ENOXAPARIN SOD 60 MG/0.6 ML SYRINGE SC ONE (20:00)
[2021-11-04] MEDS ORDERED: ASPirin-EC 325mg tab PO ONE (20:00)
[2021-11-04] MEDS ORDERED: MORPHINE SULFATE INJ 2 MG/ml SYRG IV PRN (22:30)
[2021-11-04] MEDS ORDERED: SODIUM ZIRCONIUM CYCL 10 GM PAK PO ONE (22:30)
[2021-11-04] MEDS ORDERED: ONDANSETRON HCL 4 MG/2 ML VIAL IV PRN (22:30)
[2021-11-04] MEDS ORDERED: ACETAMINOPHEN 325 MG TAB PO PRN (22:30)
[2021-11-04] MEDS ORDERED: NITROGLYCERIN 0.4 MG SL TAB SL PRN (22:30)
[2021-11-05 07:20] LABS: Basophils # (auto) 0.1 10 ^3/uL (0-0.2); Basophils % (auto) 1.2 % (0.0-2.0); Eosinophils # (auto) 0.6 10 ^3/uL (0-0.8); Eosinophils % (auto) 7.7 % (0.0-7.0); Hematocrit 32.1 % (36.0-46.0); Hemoglobin 10.6 g/dL (12.2-16.2); Lymphocytes # (auto) 3.4 10 ^3/uL (0.4-5.4); Lymphocytes % (auto) 45.8 % (10.0-50.0); Mean Corpuscular Hemoglobin 29.6 pg (28.0-32.0); Mean Corpuscular Hgb Conc. 33.1 g/dL (32.0-36.0); Mean Corpuscular Volume 89.4 fL (80.0-100.0); Monocytes # (auto) 0.4 10 ^3/uL (0-1.3); Monocytes % (auto) 5.8 % (0.0-12.0); Neutrophils % (auto) 39.5 % (37.0-80.0); Nucleated Red Blood Cells % 0.1 %; Red Blood Cells 3.59 10^6/uL (4.0-5.20); Red Cell Distribution Width 15.2 % (11.8-14.3); White Blood Cell 7.5 10^3/uL (4.4-10.8)
[2021-11-05 07:35] LABS: Calcium 7.3 mg/dL (8.5-10.1)
[2021-11-05 07:43] LABS: BUN/Creatinine Ratio 17.7; Bilirubin, Total 0.2 mg/dL (0.2-1.0); Total Protein 7.2 g/dL (6.4-8.2)
[2021-11-05] MEDS: FERROUS SULFATE 325mg EC TAB PO SCH ×2 (09:08→18:45)
[2021-11-05] MEDS: ASPirin 81 mg TAB PO SCH (09:09)
[2021-11-05] MEDS: PANTOPRAZOLE 40 MG TAB PO SCH (09:09)
[2021-11-05] MEDS: hydrALAZINE HCL 20 MG/ML VL IV PRN (14:07)
[2021-11-05 14:20] VITALS: BP 179/88
[2021-11-05] MEDS: DONEPEZIL HYDROCHLORIDE 5 MG TAB PO SCH (21:36)
[2021-11-05] MEDS: ATORVASTATIN 20 MG TAB PO SCH (21:36)
[2021-11-05 22:00] VITALS: BP 123/61
[2021-11-06 05:00] VITALS: BP 145/66
[2021-11-06 05:03] LABS: Basophils # (auto) 0.1 10 ^3/uL (0-0.2); Eosinophils # (auto) 0.5 10 ^3/uL (0-0.8); Eosinophils % (auto) 7.6 % (0.0-7.0); Hematocrit 31.3 % (36.0-46.0); Hemoglobin 10.2 g/dL (12.2-16.2); Lymphocytes # (auto) 3.1 10 ^3/uL (0.4-5.4); Lymphocytes % (auto) 49.4 % (10.0-50.0); Mean Corpuscular Hemoglobin 29.6 pg (28.0-32.0); Mean Corpuscular Hgb Conc. 32.7 g/dL (32.0-36.0); Mean Corpuscular Volume 90.4 fL (80.0-100.0); Monocytes # (auto) 0.5 10 ^3/uL (0-1.3); Monocytes % (auto) 7.5 % (0.0-12.0); Neutrophils # (auto) 2.1 10 ^3/uL (1.6-8.6); Neutrophils % (auto) 34.5 % (37.0-80.0); Nucleated Red Blood Cells % 0.1 %; Red Blood Cells 3.46 10^6/uL (4.0-5.20); Red Cell Distribution Width 15.4 % (11.8-14.3); White Blood Cell 6.2 10^3/uL (4.4-10.8)
[2021-11-06 05:27] LABS: BUN/Creatinine Ratio 19.3; Calcium 7.8 mg/dL (8.5-10.1); Potassium 5.1 mmol/L (3.5-5.1)
[2021-11-06 09:00] VITALS: BP 128/55
[2021-11-06 09:22] LABS: Magnesium 2.8 mg/dL (1.6-2.6); Phosphorus 4.2 mg/dL (2.5-4.90)
[2021-11-06] MEDS: PANTOPRAZOLE 40 MG TAB PO SCH (09:47)
[2021-11-06] MEDS: ASPirin 81 mg TAB PO SCH ×2 (09:47→10:00)
[2021-11-06] MEDS: FERROUS SULFATE 325mg EC TAB PO SCH ×2 (09:47→17:56)
[2021-11-06] MEDS ORDERED: SODIUM BICARBONATE 50ML VIAL 150 ML in D5W 5% 1,000 ML IV ONE (10:00)
[2021-11-06] MEDS: hydrALAZINE HCL 20 MG/ML VL IV PRN (11:40)
[2021-11-06] MEDS ORDERED: PROMETHAZINE HCL 25 MG/ML 1ML IV PRN (12:00)
[2021-11-06] MEDS ORDERED: DIPHENOXYLATE W/ATROPINE 2.5 MG TAB PO PRN (12:00)
[2021-11-06 13:00] VITALS: BP 106/43
[2021-11-06 17:00] VITALS: BP 111/52
[2021-11-06] MEDS ORDERED: CHOLECALCIFEROL (VITD3) 2,000 UNIT CAP/TAB PO ONE (19:15)
[2021-11-06 22:00] VITALS: BP 130/60
[2021-11-06] MEDS: DONEPEZIL HYDROCHLORIDE 5 MG TAB PO SCH (22:23)
[2021-11-06] MEDS: ATORVASTATIN 20 MG TAB PO SCH (22:23)
[2021-11-07 05:00] VITALS: BP 129/56
[2021-11-07 05:40] LABS: Urine Bacteria NONE SEEN /hpf (None Seen); Urine Blood Negative /uL (Negative); Urine Specific Gravity 1.008 (1.001-1.035); Urine WBC <1 /hpf (0 - 5)
[2021-11-07 05:44] LABS: Protein, Urine 48.6 mg/dL (0.0-11.9)
[2021-11-07 06:21] LABS: Basophils # (auto) 0.1 10 ^3/uL (0-0.2); Basophils % (auto) 1.3 % (0.0-2.0); Eosinophils # (auto) 0.4 10 ^3/uL (0-0.8); Eosinophils % (auto) 6.4 % (0.0-7.0); Hematocrit 30.3 % (36.0-46.0); Hemoglobin 10.2 g/dL (12.2-16.2); Lymphocytes # (auto) 2.4 10 ^3/uL (0.4-5.4); Lymphocytes % (auto) 42.9 % (10.0-50.0); Mean Corpuscular Hemoglobin 29.4 pg (28.0-32.0); Mean Corpuscular Hgb Conc. 33.6 g/dL (32.0-36.0); Mean Corpuscular Volume 87.5 fL (80.0-100.0); Monocytes # (auto) 0.4 10 ^3/uL (0-1.3); Neutrophils # (auto) 2.3 10 ^3/uL (1.6-8.6); Neutrophils % (auto) 41.4 % (37.0-80.0); Nucleated Red Blood Cells % 0.1 %; Red Blood Cells 3.46 10^6/uL (4.0-5.20); Red Cell Distribution Width 15.2 % (11.8-14.3); White Blood Cell 5.6 10^3/uL (4.4-10.8)
[2021-11-07 06:30] LABS: BUN/Creatinine Ratio 17.4; Calcium 7.5 mg/dL (8.5-10.1); Potassium 4.5 mmol/L (3.5-5.1)
[2021-11-07] MEDS: FERROUS SULFATE 325mg EC TAB PO SCH (08:59)
[2021-11-07 09:00] VITALS: BP 140/52
[2021-11-07] MEDS: ASPirin 81 mg TAB PO SCH (09:00)
[2021-11-07] MEDS: PANTOPRAZOLE 40 MG TAB PO SCH (09:00)
[2021-11-07] MEDS ORDERED: CHOLECALCIFEROL (VITD3) 2,000 UNIT CAP/TAB PO SCH (10:00)
[2021-11-07] MEDS ORDERED: Ensure Enlive Strawberry 8oz Bottle PO SCH (12:00)
[2021-11-07] MEDS ORDERED: PROM25TA5 PO (12:03)
[2021-11-07 13:00] VITALS: BP 138/57
== END 2021-11-07 14:45 | disposition home or self-care (01) | DRG 281 ==
LOC: ER 16:21 → EDBD 16:21 → TELE 22:23 → TELE-WESTW 11-05 18:14
PROVIDERS: ADMIT Nurse Practitioner; ATTEND Internal Medicine Pulmonary Disease
DX: I21.4 Non-ST elevation (NSTEMI) myocardial infarction (principal); N17.9 Acute kidney failure, unspecified; E87.2 Acidosis; N18.4 Chronic kidney disease, stage 4 (severe); R62.7 Adult failure to thrive; E86.0 Dehydration; F03.90 Unspecified dementia, unspecified severity, without behavioral disturbance, psychotic disturbance, mood disturbance, and anxiety; E86.1 Hypovolemia; R55 Syncope and collapse; E87.5 Hyperkalemia; K44.9 Diaphragmatic hernia without obstruction or gangrene; K21.9 Gastro-esophageal reflux disease without esophagitis; R79.89 Other specified abnormal findings of blood chemistry; Z20.822 Contact with and (suspected) exposure to COVID-19; K52.9 Noninfective gastroenteritis and colitis, unspecified; E11.22 Type 2 diabetes mellitus with diabetic chronic kidney disease; I12.9 Hypertensive chronic kidney disease with stage 1 through stage 4 chronic kidney disease, or unspecified chronic kidney disease; Z82.49 Family history of ischemic heart disease and other diseases of the circulatory system; Z83.3 Family history of diabetes mellitus; Z90.49 Acquired absence of other specified parts of digestive tract; Z90.710 Acquired absence of both cervix and uterus; Z68.20 Body mass index [BMI] 20.0-20.9, adult
CPT/HCPCS: 36415; 36600; 70450; 71045; 74176; 76775; 80048; 80053; 81001; 82270; 82306; 82570; 82805; 82962; 83690; 83735; 83880; 83970; 84100; 84156; 84300; 84484; 85025; 85048; 85610; 85730; 86850; 86900; 86901; 87045; 87427; 93005; 93306; 96361; 96372; 96374; 99291; G0378; J2405

== ENCOUNTER 2022-06-06 10:44 | Inpatient (IN) | payer MEDICARE, MEDICAID ==
[~2022-06-06] VITALS: Ht 154.9 cm; Wt 43.5 kg
[~2022-06-06 10:44] MED LIST changes: +PROM25TA5 PO
[2022-06-06] MEDS ORDERED: SODIUM CHLORIDE 0.9% 1,000 ML IV ONE ×2 (11:00→17:15)
[2022-06-06 11:29] LABS: Basophils # (auto) 0.1 10 ^3/uL (0-0.2); Eosinophils # (auto) 0.5 10 ^3/uL (0-0.8); Eosinophils % (auto) 6.9 % (0.0-7.0); Hemoglobin 10.5 g/dL (12.2-16.2); Lymphocytes # (auto) 2.1 10 ^3/uL (0.4-5.4); Lymphocytes % (auto) 31.8 % (10.0-50.0); Mean Corpuscular Hemoglobin 29.2 pg (28.0-32.0); Mean Corpuscular Hgb Conc. 31.9 g/dL (32.0-36.0); Mean Corpuscular Volume 91.6 fL (80.0-100.0); Monocytes # (auto) 0.5 10 ^3/uL (0-1.3); Neutrophils # (auto) 3.4 10 ^3/uL (1.6-8.6); Neutrophils % (auto) 52.3 % (37.0-80.0); Nucleated Red Blood Cells % 0.1 %; White Blood Cell 6.6 10^3/uL (4.4-10.8)
[2022-06-06 12:11] LABS: Calcium 7.8 mg/dL (8.5-10.1)
[2022-06-06 12:13] LABS: BUN/Creatinine Ratio 10.8
[2022-06-06 12:16] LABS: Bilirubin, Total 0.4 mg/dL (0.2-1.0); Total Protein 6.9 g/dL (6.4-8.2)
[2022-06-06 12:27] LABS: Potassium 5.6 mmol/L (3.5-5.1)
[2022-06-06] MEDS ORDERED: ENOXAPARIN SOD 40 MG/0.4 ML SYRINGE SC ONE (14:00)
[2022-06-06] MEDS ORDERED: SODIUM ZIRCONIUM CYCL 10 GM PAK PO ONE (14:30)
[2022-06-06] MEDS ORDERED: MORPHINE SULFATE INJ 2 MG/ml SYRG IV PRN ×2 (14:30→14:45)
[2022-06-06] MEDS ORDERED: NITROGLYCERIN 0.4 MG SL TAB SL PRN (14:30)
[2022-06-06 14:36] LABS: Urine Bacteria MOD /hpf (None Seen); Urine Blood 1+ /uL (Negative); Urine Budding Yeast MANY /hpf (None Seen); Urine Specific Gravity 1.011 (1.001-1.035); Urine WBC 424 /hpf (0 - 5); Urine WBC Clumps PRESENT /hpf (None Seen)
[2022-06-06] MEDS ORDERED: ACETAMINOPHEN 500 MG TAB PO PRN (14:45)
[2022-06-06] MEDS ORDERED: HYDROcodone-ACET 5/325MG TAB PO PRN (14:45)
[2022-06-06] MEDS ORDERED: ALBUTEROL MEDNEB 2.5 mg/3ml NEB ONE (15:29)
[2022-06-06] MEDS ORDERED: CALCIUM GLUC 1,000mg/50ml-NS 50 ML IV ONE (15:30)
[2022-06-06] MEDS ORDERED: InsuLIN REG 1unit/0.01ml Soln (100units/ml) IV ONE (15:30)
[2022-06-06] MEDS ORDERED: SODIUM BICARBONATE 8.4 % INJ 50ML VIAL IV ONE (15:30)
[2022-06-06] MEDS ORDERED: DEXTROSE (50%) 50ML SYRG IV ONE (15:30)
[2022-06-06] MEDS ORDERED: ALBUTEROL SULF 2.5 MG/0.5ML(0.5%) NEB SOLN NEB ONE (15:30)
[2022-06-06] MEDS: cefTRIAXone 1GM/50ML D5W 50 ML IV SCH (16:52)
[2022-06-06] MEDS: SODIUM BICARBONATE 50ML VIAL 50 ML in SOD CHL 0.45% 1,000 ML IV SCH (18:19)
[2022-06-07] MEDS ORDERED: SODIUM BICARBONATE 8.4% INJ 50ML SYRINGE ONE (06:01)
[2022-06-07] MEDS: SODIUM BICARBONATE 50ML VIAL 50 ML in SOD CHL 0.45% 1,000 ML IV SCH (06:04)
[2022-06-07 07:27] LABS: Basophils # (auto) 0.1 10 ^3/uL (0-0.2); Eosinophils # (auto) 0.1 10 ^3/uL (0-0.8); Eosinophils % (auto) 1.4 % (0.0-7.0); Hematocrit 27.1 % (36.0-46.0); Hemoglobin 8.8 g/dL (12.2-16.2); Lymphocytes # (auto) 2.7 10 ^3/uL (0.4-5.4); Lymphocytes % (auto) 29.2 % (10.0-50.0); Mean Corpuscular Hemoglobin 29.4 pg (28.0-32.0); Mean Corpuscular Hgb Conc. 32.7 g/dL (32.0-36.0); Monocytes # (auto) 0.9 10 ^3/uL (0-1.3); Monocytes % (auto) 9.5 % (0.0-12.0); Neutrophils # (auto) 5.5 10 ^3/uL (1.6-8.6); Neutrophils % (auto) 58.9 % (37.0-80.0); Nucleated Red Blood Cells % 0.1 %; Red Blood Cells 3.01 10^6/uL (4.0-5.20); White Blood Cell 9.3 10^3/uL (4.4-10.8)
[2022-06-07 07:53] LABS: BUN/Creatinine Ratio 10.5; Calcium 7.6 mg/dL (8.5-10.1); Potassium 4.4 mmol/L (3.5-5.1)
[2022-06-07] MEDS: cefTRIAXone 1GM/50ML D5W 50 ML IV SCH (09:38)
[2022-06-07] MEDS: ENOXAPARIN SOD 30 MG/0.3 ML SYRINGE SC SCH (09:43)
[2022-06-07] MEDS: ASPirin-EC 81 mg tab PO SCH (09:43)
[2022-06-07] MEDS: ONDANSETRON HCL 4 MG/2 ML VIAL IV PRN ×2 (12:12→18:10)
[2022-06-07] MEDS ORDERED: CHOLECALCIFEROL (VITD3) 2,000 UNIT CAP/TAB PO ONE (15:00)
[2022-06-07 17:10] LABS: % Iron Saturation 13.9 % (15-50)
[2022-06-07] MEDS: SODIUM BICARBONATE 650 MG TAB PO SCH ×2 (18:10→21:33)
[2022-06-07] MEDS: DONEPEZIL HYDROCHLORIDE 5 MG TAB PO SCH (21:33)
[2022-06-07 22:00] VITALS: BP 158/63
[2022-06-08] VITALS (8 sets, daily range): BP systolic 134–180; BP diastolic 57–85
[2022-06-08] MEDS: SODIUM BICARBONATE 650 MG TAB PO SCH ×4 (05:48→21:59)
[2022-06-08 07:20] LABS: Basophils # (auto) 0.1 10 ^3/uL (0-0.2); Basophils % (auto) 1.7 % (0.0-2.0); Eosinophils # (auto) 0.5 10 ^3/uL (0-0.8); Eosinophils % (auto) 6.2 % (0.0-7.0); Hematocrit 29.7 % (36.0-46.0); Hemoglobin 9.7 g/dL (12.2-16.2); Lymphocytes # (auto) 2.3 10 ^3/uL (0.4-5.4); Lymphocytes % (auto) 31.1 % (10.0-50.0); Mean Corpuscular Hemoglobin 28.9 pg (28.0-32.0); Mean Corpuscular Hgb Conc. 32.6 g/dL (32.0-36.0); Mean Corpuscular Volume 88.7 fL (80.0-100.0); Monocytes # (auto) 0.6 10 ^3/uL (0-1.3); Monocytes % (auto) 8.5 % (0.0-12.0); Neutrophils # (auto) 3.9 10 ^3/uL (1.6-8.6); Neutrophils % (auto) 52.5 % (37.0-80.0); Red Blood Cells 3.35 10^6/uL (4.0-5.20); Red Cell Distribution Width 14.7 % (11.8-14.3); White Blood Cell 7.4 10^3/uL (4.4-10.8)
[2022-06-08 07:37] LABS: Potassium 4.4 mmol/L (3.5-5.1)
[2022-06-08 07:42] LABS: Albumin 2.9 g/dL (3.4-5.0); BUN/Creatinine Ratio 10.6
[2022-06-08 07:45] LABS: Bilirubin, Total 0.3 mg/dL (0.2-1.0); Total Protein 6.9 g/dL (6.4-8.2)
[2022-06-08] MEDS: cefTRIAXone 1GM/50ML D5W 50 ML IV SCH (08:46)
[2022-06-08] MEDS: ASPirin-EC 81 mg tab PO SCH (08:46)
[2022-06-08] MEDS: ENOXAPARIN SOD 30 MG/0.3 ML SYRINGE SC SCH (08:47)
[2022-06-08] MEDS: FERROUS SULFATE 325mg EC TAB PO SCH (08:47)
[2022-06-08] MEDS: CHOLECALCIFEROL (VITD3) 2,000 UNIT CAP/TAB PO SCH (08:47)
[2022-06-08] MEDS ORDERED: FLUCONAZOLE 100 MG TAB PO ONE (10:30)
[2022-06-08] MEDS ORDERED: MULTIPLE VITAMIN TAB ONE (10:55)
[2022-06-08] MEDS ORDERED: MULTIPLE VITAMIN TAB PO ONE (13:15)
[2022-06-08] MEDS: metroNIDAZOLE 500 MG TAB PO SCH ×2 (15:12→22:00)
[2022-06-08] MEDS: DONEPEZIL HYDROCHLORIDE 5 MG TAB PO SCH (21:59)
[2022-06-09 05:00] VITALS: BP 159/59
[2022-06-09] MEDS: SODIUM BICARBONATE 650 MG TAB PO SCH ×4 (06:00→22:28)
[2022-06-09] MEDS: metroNIDAZOLE 500 MG TAB PO SCH ×3 (06:00→22:28)
[2022-06-09 09:00] VITALS: BP 153/74
[2022-06-09] MEDS: cefTRIAXone 1GM/50ML D5W 50 ML IV SCH (09:04)
[2022-06-09] MEDS ORDERED: ADENOSINE 36 MG in GIVE UN-DILUTED 0 ML IV STA (09:59)
[2022-06-09] MEDS: FERROUS SULFATE 325mg EC TAB PO SCH (10:00)
[2022-06-09] MEDS ORDERED: FLUCONAZOLE 100 MG TAB PO SCH (10:00)
[2022-06-09] MEDS: ASPirin-EC 81 mg tab PO SCH (10:00)
[2022-06-09] MEDS: CHOLECALCIFEROL (VITD3) 2,000 UNIT CAP/TAB PO SCH (10:00)
[2022-06-09 10:31] VITALS: BP 173/76
[2022-06-09] MEDS ORDERED: PANTOPRAZOLE 40 MG TAB PO ONE (11:15)
[2022-06-09] MEDS ORDERED: FLUCONAZOLE 200MG/100ML 100 ML IV ONE (11:15)
[2022-06-09] MEDS: ENOXAPARIN SOD 30 MG/0.3 ML SYRINGE SC SCH (13:23)
[2022-06-09 16:45] VITALS: BP 136/60
[2022-06-09 20:25] VITALS: BP 149/67
[2022-06-09] MEDS: DONEPEZIL HYDROCHLORIDE 5 MG TAB PO SCH (22:28)
[2022-06-10 05:37] VITALS: BP 130/58
[2022-06-10] MEDS: metroNIDAZOLE 500 MG TAB PO SCH ×3 (06:19→22:53)
[2022-06-10] MEDS: SODIUM BICARBONATE 650 MG TAB PO SCH ×2 (06:19→22:53)
[2022-06-10 06:51] LABS: BUN/Creatinine Ratio 13.7; Calcium 7.4 mg/dL (8.5-10.1); Potassium 4.5 mmol/L (3.5-5.1)
[2022-06-10 09:00] VITALS: BP 150/62
[2022-06-10] MEDS: CHOLECALCIFEROL (VITD3) 2,000 UNIT CAP/TAB PO SCH (09:01)
[2022-06-10] MEDS: cefTRIAXone 1GM/50ML D5W 50 ML IV SCH (09:01)
[2022-06-10] MEDS: ASPirin-EC 81 mg tab PO SCH (09:02)
[2022-06-10] MEDS: ENOXAPARIN SOD 30 MG/0.3 ML SYRINGE SC SCH (09:02)
[2022-06-10] MEDS: PANTOPRAZOLE 40 MG TAB PO SCH (09:02)
[2022-06-10] MEDS: FERROUS SULFATE 325mg EC TAB PO SCH (09:02)
[2022-06-10] MEDS: FLUCONAZOLE 200MG/100ML 100 ML IV SCH (10:29)
[2022-06-10 13:00] VITALS: BP 136/64
[2022-06-10] MEDS: ONDANSETRON HCL 4 MG/2 ML VIAL IV PRN ×2 (14:47→22:53)
[2022-06-10 22:00] VITALS: BP 164/68
[2022-06-10] MEDS ORDERED: DONEPEZIL HYDROCHLORIDE 5 MG TAB PO SCH (22:00)
[2022-06-11] MEDS: hydrALAZINE HCL 10 MG TAB PO PRN ×2 (01:10→13:01)
[2022-06-11 05:00] VITALS: BP 181/71
[2022-06-11 05:40] VITALS: BP 142/74
[2022-06-11] MEDS: metroNIDAZOLE 500 MG TAB PO SCH ×2 (05:52→14:00)
[2022-06-11] MEDS: ONDANSETRON HCL 4 MG/2 ML VIAL IV PRN ×2 (05:52→09:56)
[2022-06-11 07:42] LABS: Calcium 7.9 mg/dL (8.5-10.1); Potassium 4.4 mmol/L (3.5-5.1)
[2022-06-11 07:44] LABS: BUN/Creatinine Ratio 13.2
[2022-06-11] MEDS: cefTRIAXone 1GM/50ML D5W 50 ML IV SCH (08:25)
[2022-06-11 09:00] VITALS: BP 138/67
[2022-06-11] MEDS: SODIUM BICARBONATE 650 MG TAB PO SCH (09:46)
[2022-06-11] MEDS: PANTOPRAZOLE 40 MG TAB PO SCH (09:47)
[2022-06-11] MEDS: CHOLECALCIFEROL (VITD3) 2,000 UNIT CAP/TAB PO SCH (09:47)
[2022-06-11] MEDS: ASPirin-EC 81 mg tab PO SCH (09:47)
[2022-06-11] MEDS: ENOXAPARIN SOD 30 MG/0.3 ML SYRINGE SC SCH (09:47)
[2022-06-11] MEDS: FERROUS SULFATE 325mg EC TAB PO SCH (09:56)
[2022-06-11] MEDS ORDERED: LORazepam 0.5 MG TAB PO ONE (11:30)
[2022-06-11] MEDS ORDERED: FLUC200T50 PO (11:32)
[2022-06-11] MEDS ORDERED: SODI650T PO (11:32)
[2022-06-11 12:29] VITALS: BP_SYST 145; BP_SYST 186; BP_DIAS 65; BP_DIAS 75
[2022-06-11] MEDS: FLUCONAZOLE 200MG/100ML 100 ML IV SCH (12:55)
[2022-06-11 13:00] VITALS: BP 163/80
[2022-06-11] MEDS ORDERED: amLODIPine BESYLATE 5 MG TAB PO ONE (15:30)
== END 2022-06-11 18:13 | disposition home health service (06) | DRG 281 ==
LOC: ER 10:57 → TELE 14:36 → TELE-WESTW 06-07 20:57
PROVIDERS: ADMIT Nurse Practitioner Acute Care; ATTEND Internal Medicine
DX: I21.4 Non-ST elevation (NSTEMI) myocardial infarction (principal); B37.41 Candidal cystitis and urethritis; E44.0 Moderate protein-calorie malnutrition; N18.4 Chronic kidney disease, stage 4 (severe); Z68.1 Body mass index [BMI] 19.9 or less, adult; E87.20 Acidosis, unspecified; N13.6 Pyonephrosis; E87.5 Hyperkalemia; R62.7 Adult failure to thrive; D63.8 Anemia in other chronic diseases classified elsewhere; E11.22 Type 2 diabetes mellitus with diabetic chronic kidney disease; E55.9 Vitamin D deficiency, unspecified; K44.9 Diaphragmatic hernia without obstruction or gangrene; E87.6 Hypokalemia; F03.90 Unspecified dementia, unspecified severity, without behavioral disturbance, psychotic disturbance, mood disturbance, and anxiety; H54.8 Legal blindness, as defined in USA; I12.9 Hypertensive chronic kidney disease with stage 1 through stage 4 chronic kidney disease, or unspecified chronic kidney disease; I25.2 Old myocardial infarction; Z82.49 Family history of ischemic heart disease and other diseases of the circulatory system; Z83.3 Family history of diabetes mellitus; Z90.710 Acquired absence of both cervix and uterus; Z90.49 Acquired absence of other specified parts of digestive tract
CPT/HCPCS: 36415; 71045; 74176; 76775; 78452; 80048; 80053; 81001; 82550; 82962; 83540; 83550; 83880; 84484; 84702; 85025; 85610; 85730; 87086; 87088; 87186; 87426; 87493; 93005; 93017; 93306; 94644; 96361; 96365; 96367; 96372; 96375; G0378; J0153; J0696; J1450; J1815; J2405

== ENCOUNTER 2022-10-09 15:34 | Inpatient (IN) | payer MEDICARE, MEDICAID ==
[~2022-10-09] VITALS: Ht 152.4 cm; Wt 40.5 kg
[~2022-10-09 15:34] MED LIST changes: +FLUC200T50 PO; +SODI650T PO
[2022-10-09 16:38] LABS: Basophils # (auto) 0.1 10 ^3/uL (0-0.2); Lymphocytes # (auto) 1.7 10 ^3/uL (0.4-5.4); Monocytes # (auto) 0.7 10 ^3/uL (0-1.3)
[2022-10-09 16:39] LABS: Albumin 2.4 g/dL (3.4-5.0); Basophils % (auto) 0.6 % (0.0-2.0); Calcium 7.8 mg/dL (8.5-10.1); Eosinophils # (auto) 0 10 ^3/uL (0-0.8); Eosinophils % (auto) 0.3 % (0.0-7.0); Hematocrit 23.1 % (36.0-46.0); Hemoglobin 7.2 g/dL (12.2-16.2); Lymphocytes % (auto) 14.6 % (10.0-50.0); Mean Corpuscular Hemoglobin 27.3 pg (28.0-32.0); Mean Corpuscular Hgb Conc. 31.3 g/dL (32.0-36.0); Mean Corpuscular Volume 87.3 fL (80.0-100.0); Monocytes % (auto) 6.3 % (0.0-12.0); Neutrophils # (auto) 9.1 10 ^3/uL (1.6-8.6); Neutrophils % (auto) 78.2 % (37.0-80.0); Potassium 4.8 mmol/L (3.5-5.1); Red Blood Cells 2.64 10^6/uL (4.0-5.20); Red Cell Distribution Width 17.9 % (11.8-14.3); White Blood Cell 11.6 10^3/uL (4.4-10.8)
[2022-10-09 16:41] LABS: INR 0.99 (0.9-1.15); Partial Thromboplastin Time 32.5 sec (24.6-33.4)
[2022-10-09 16:43] LABS: BUN/Creatinine Ratio 11.1 (10.0-20.0); Bilirubin, Total 0.3 mg/dL (0.2-1.0); Total Protein 7.7 g/dL (6.4-8.2)
[2022-10-09] MEDS ORDERED: PANTOPRAZOLE 40 MG/10 ML VIAL INJ IV ONE ×2 (17:30→22:39)
[2022-10-09] MEDS ORDERED: SODIUM CHLORIDE 0.9% 1,000 ML IV ONE (19:15)
[2022-10-09] MEDS ORDERED: PANTOPRAZOLE 80 MG in SODIUM CHL 0.9% 100 ML IV ONE (19:15)
[2022-10-09] MEDS ORDERED: ONDANSETRON HCL 4 MG/2 ML VIAL IV PRN (19:15)
[2022-10-09] MEDS ORDERED: SODIUM CHLORIDE 0.9% 1,000 ML IV SCH (19:15)
[2022-10-09] MEDS ORDERED: PANTOPRAZOLE 40mg/50ML NS AE 50 ML IV ONE (19:15)
[2022-10-09] MEDS ORDERED: DEXTROSE (50%) 50ML SYRG IV PRN (19:15)
[2022-10-09 20:41] VITALS: BP 114/47
[2022-10-09 20:56] VITALS: BP 145/71
[2022-10-09 21:25] VITALS: BP 146/65
[2022-10-09 21:51] LABS: Creatinine, Urine 68 mg/dL (30.0-125.0); Sodium Urine 55 mmol/L (40-220)
[2022-10-09] MEDS: InsuLIN REG 1unit/0.01ml Soln (100units/ml) SC SCH (22:00)
[2022-10-09 22:04] LABS: Urine Bacteria NONE SEEN /hpf (None Seen); Urine Blood TRACE /uL (Negative); Urine Budding Yeast MODERATE /hpf (None Seen); Urine Specific Gravity 1.012 (1.001-1.035); Urine WBC 170 /hpf (0 - 5); Urine WBC Clumps PRESENT /hpf (None Seen)
[2022-10-09] MEDS ORDERED: AMLO-496 PO (22:32)
[2022-10-09] MEDS ORDERED: LORA0.5T20 (22:32)
[2022-10-09] MEDS ORDERED: SOD CHL 0.45% 1,000 ML IV SCH (23:45)
[2022-10-09] MEDS ORDERED: ACETAMINOPHEN 650 MG RECT SUPP PR ONE (23:50)
[2022-10-09] MEDS: ACETAMINOPHEN 650 MG RECT SUPP PR PRN (23:59)
[2022-10-10] VITALS (7 sets, daily range): BP systolic 117–184; BP diastolic 40–78
[2022-10-10] MEDS: hydrALAZINE HCL 20 MG/ML VL IV PRN (00:26)
[2022-10-10] MEDS: cefTRIAXone 1GM/50ML D5W 50 ML IV SCH ×2 (00:38→10:05)
[2022-10-10] MEDS: ACCU-CHEK COMFORT CURVE STRIP VI SCH ×5 (00:39→21:29)
[2022-10-10] MEDS ORDERED: ONDANSETRON HCL 4 MG/2 ML VIAL IV PRN (01:45)
[2022-10-10] MEDS: ACETAMINOPHEN 650 MG RECT SUPP PR PRN (05:36)
[2022-10-10 05:52] LABS: Basophils # (auto) 0 10 ^3/uL (0-0.2); Basophils % (auto) 0.5 % (0.0-2.0); Eosinophils # (auto) 0.1 10 ^3/uL (0-0.8); Eosinophils % (auto) 0.7 % (0.0-7.0); Hematocrit 31.3 % (36.0-46.0); Lymphocytes # (auto) 2.4 10 ^3/uL (0.4-5.4); Lymphocytes % (auto) 30.6 % (10.0-50.0); Mean Corpuscular Hemoglobin 28.1 pg (28.0-32.0); Mean Corpuscular Hgb Conc. 31.9 g/dL (32.0-36.0); Mean Corpuscular Volume 88.3 fL (80.0-100.0); Monocytes # (auto) 0.6 10 ^3/uL (0-1.3); Monocytes % (auto) 7.4 % (0.0-12.0); Neutrophils # (auto) 4.7 10 ^3/uL (1.6-8.6); Neutrophils % (auto) 60.8 % (37.0-80.0); Nucleated Red Blood Cells % 0.1 %; Red Blood Cells 3.54 10^6/uL (4.0-5.20); Red Cell Distribution Width 16.9 % (11.8-14.3); White Blood Cell 7.8 10^3/uL (4.4-10.8)
[2022-10-10 06:10] LABS: Potassium 4.2 mmol/L (3.5-5.1)
[2022-10-10 06:15] LABS: Albumin 2.3 g/dL (3.4-5.0); BUN/Creatinine Ratio 11.3 (10.0-20.0); Bilirubin, Total 0.4 mg/dL (0.2-1.0); Calcium 7.8 mg/dL (8.5-10.1); Total Protein 7.1 g/dL (6.4-8.2)
[2022-10-10 06:29] LABS: Phosphorus 3.8 mg/dL (2.5-4.90)
[2022-10-10] MEDS: InsuLIN REG 1unit/0.01ml Soln (100units/ml) SC SCH ×4 (07:00→21:22)
[2022-10-10] MEDS ORDERED: PANTOPRAZOLE 40 MG/10 ML VIAL INJ IV ONE (11:45)
[2022-10-10] MEDS ORDERED: SODIUM BICARBONATE 8.4 % INJ 50ML VIAL IV ONE (11:45)
[2022-10-10] MEDS ORDERED: diphenhdrAMINE HCL 50 MG/1 ML VL IV PRN (11:45)
[2022-10-10] MEDS: D5W/SOD CHLO 0.9% 1,000 ML IV SCH ×2 (14:07→21:23)
[2022-10-10 14:55] LABS: Urine Bacteria NONE SEEN /hpf (None Seen); Urine Blood TRACE /uL (Negative); Urine Specific Gravity 1.011 (1.001-1.035); Urine WBC 28 /hpf (0 - 5)
[2022-10-10 15:18] LABS: Protein, Urine 140.2 mg/dL (0.0-11.9)
[2022-10-10] MEDS ORDERED: fentaNYL CITRATE 100 MCG/2 ML VL ONE (16:54)
[2022-10-10] MEDS ORDERED: diphenhdrAMINE HCL 50 MG/1 ML VL ONE (16:55)
[2022-10-10] MEDS ORDERED: MIDAZOLAM HCL 5 MG/ML-1ML VIAL ONE (16:55)
[2022-10-10] MEDS ORDERED: MIDAZOLAM HCL 2MG/2ML 2ml VIAL (1mg/ml) ONE ×2 (17:04→17:06)
[2022-10-10] MEDS ORDERED: MIDAZOLAM HCL 2MG/2ML 2ml VIAL (1mg/ml) IV ONE (18:23)
[2022-10-10] MEDS: PANTOPRAZOLE 40 MG/10 ML VIAL INJ IV SCH (21:24)
[2022-10-11] MEDS: D5W/SOD CHLO 0.9% 1,000 ML IV SCH ×2 (03:45→08:54)
[2022-10-11 06:16] LABS: Basophils # (auto) 0.1 10 ^3/uL (0-0.2); Basophils % (auto) 0.7 % (0.0-2.0); Eosinophils # (auto) 0.1 10 ^3/uL (0-0.8); Hematocrit 32.4 % (36.0-46.0); Hemoglobin 10.4 g/dL (12.2-16.2); Lymphocytes # (auto) 1.5 10 ^3/uL (0.4-5.4); Lymphocytes % (auto) 14.7 % (10.0-50.0); Mean Corpuscular Hemoglobin 28.1 pg (28.0-32.0); Mean Corpuscular Volume 87.7 fL (80.0-100.0); Monocytes # (auto) 0.4 10 ^3/uL (0-1.3); Monocytes % (auto) 4.4 % (0.0-12.0); Neutrophils # (auto) 7.9 10 ^3/uL (1.6-8.6); Neutrophils % (auto) 79.2 % (37.0-80.0); Red Cell Distribution Width 17.1 % (11.8-14.3); White Blood Cell 9.9 10^3/uL (4.4-10.8)
[2022-10-11] MEDS: InsuLIN REG 1unit/0.01ml Soln (100units/ml) SC SCH ×4 (06:20→22:50)
[2022-10-11] MEDS: ACCU-CHEK COMFORT CURVE STRIP VI SCH ×4 (06:21→22:00)
[2022-10-11 06:27] LABS: Potassium 3.3 mmol/L (3.5-5.1)
[2022-10-11 06:34] LABS: BUN/Creatinine Ratio 11.1 (10.0-20.0); Calcium 7.6 mg/dL (8.5-10.1)
[2022-10-11 07:00] LABS: Albumin 2.2 g/dL (3.4-5.0); Bilirubin, Total 0.2 mg/dL (0.2-1.0); Phosphorus 3.3 mg/dL (2.5-4.90); Total Protein 7.6 g/dL (6.4-8.2)
[2022-10-11 08:00] VITALS: BP 124/62
[2022-10-11] MEDS: PANTOPRAZOLE 40 MG/10 ML VIAL INJ IV SCH ×2 (08:54→22:48)
[2022-10-11] MEDS ORDERED: POTASSIUM CHLORIDE 40 MEQ, LIDOCAINE 1% (LOCAL ANESTH.) 4 ML in SODIUM CHL 0.9% 250 ML IV ONE (10:15)
[2022-10-11 12:00] VITALS: BP 148/61
[2022-10-11] MEDS: D5W/LACTATED RINGERS 1,000 ML IV SCH ×2 (14:36→23:35)
[2022-10-11 16:00] VITALS: BP 149/73
[2022-10-11] MEDS: VANCOMYCIN HCL 500MG/5ML ORAL SOL PO SCH ×2 (17:09→22:49)
[2022-10-11 22:00] VITALS: BP 185/84
[2022-10-11] MEDS: metroNIDAZOLE 500 MG TAB PO SCH (22:49)
[2022-10-11] MEDS: hydrALAZINE HCL 20 MG/ML VL IV PRN (23:04)
[2022-10-12 05:00] VITALS: BP 120/44
[2022-10-12 05:46] LABS: Basophils # (auto) 0 10 ^3/uL (0-0.2); Basophils % (auto) 0.4 % (0.0-2.0); Eosinophils # (auto) 0.1 10 ^3/uL (0-0.8); Eosinophils % (auto) 1.2 % (0.0-7.0); Hematocrit 29.4 % (36.0-46.0); Hemoglobin 9.4 g/dL (12.2-16.2); Lymphocytes # (auto) 2.2 10 ^3/uL (0.4-5.4); Lymphocytes % (auto) 29.9 % (10.0-50.0); Mean Corpuscular Hemoglobin 27.8 pg (28.0-32.0); Mean Corpuscular Volume 87.1 fL (80.0-100.0); Monocytes # (auto) 0.6 10 ^3/uL (0-1.3); Monocytes % (auto) 8.9 % (0.0-12.0); Neutrophils # (auto) 4.3 10 ^3/uL (1.6-8.6); Neutrophils % (auto) 59.6 % (37.0-80.0); Nucleated Red Blood Cells % 0.1 %; Red Blood Cells 3.38 10^6/uL (4.0-5.20); White Blood Cell 7.2 10^3/uL (4.4-10.8)
[2022-10-12 05:59] LABS: Calcium 7.2 mg/dL (8.5-10.1); Potassium 4.3 mmol/L (3.5-5.1)
[2022-10-12 06:02] LABS: BUN/Creatinine Ratio 9.8 (10.0-20.0)
[2022-10-12] MEDS: InsuLIN REG 1unit/0.01ml Soln (100units/ml) SC SCH ×4 (06:06→21:33)
[2022-10-12] MEDS: ACCU-CHEK COMFORT CURVE STRIP VI SCH ×4 (06:06→21:25)
[2022-10-12] MEDS: metroNIDAZOLE 500 MG TAB PO SCH ×3 (06:10→21:25)
[2022-10-12] MEDS: VANCOMYCIN HCL 500MG/5ML ORAL SOL PO SCH ×4 (06:11→21:26)
[2022-10-12 09:00] VITALS: BP 137/60
[2022-10-12] MEDS: PANTOPRAZOLE 40 MG/10 ML VIAL INJ IV SCH (10:22)
[2022-10-12] MEDS: SODIUM BICARBONATE 50ML VIAL 50 ML in SOD CHL 0.45% 1,000 ML IV SCH ×2 (10:58→23:48)
[2022-10-12] MEDS ORDERED: FLUCONAZOLE 100 MG TAB PO ONE (11:00)
[2022-10-12] MEDS: FAMOTIDINE 20 MG TAB PO SCH (11:39)
[2022-10-12 12:41] VITALS: BP 128/75
[2022-10-12 16:51] VITALS: BP 113/59
[2022-10-12 22:00] VITALS: BP 151/69
[2022-10-13 05:00] VITALS: BP 159/79
[2022-10-13 05:17] LABS: Basophils # (auto) 0 10 ^3/uL (0-0.2); Basophils % (auto) 0.4 % (0.0-2.0); Eosinophils # (auto) 0.1 10 ^3/uL (0-0.8); Eosinophils % (auto) 1.8 % (0.0-7.0); Hematocrit 27.8 % (36.0-46.0); Hemoglobin 9.1 g/dL (12.2-16.2); Lymphocytes # (auto) 2.5 10 ^3/uL (0.4-5.4); Lymphocytes % (auto) 37.8 % (10.0-50.0); Mean Corpuscular Hemoglobin 28.5 pg (28.0-32.0); Mean Corpuscular Hgb Conc. 32.8 g/dL (32.0-36.0); Monocytes # (auto) 0.7 10 ^3/uL (0-1.3); Monocytes % (auto) 10.3 % (0.0-12.0); Neutrophils # (auto) 3.3 10 ^3/uL (1.6-8.6); Neutrophils % (auto) 49.7 % (37.0-80.0); Nucleated Red Blood Cells % 0.1 %; Red Cell Distribution Width 17.2 % (11.8-14.3); White Blood Cell 6.6 10^3/uL (4.4-10.8)
[2022-10-13 05:30] LABS: Calcium 6.7 mg/dL (8.5-10.1); Potassium 4.1 mmol/L (3.5-5.1)
[2022-10-13] MEDS: ACCU-CHEK COMFORT CURVE STRIP VI SCH ×4 (05:50→22:03)
[2022-10-13] MEDS: metroNIDAZOLE 500 MG TAB PO SCH ×3 (05:51→21:52)
[2022-10-13] MEDS: VANCOMYCIN HCL 500MG/5ML ORAL SOL PO SCH ×4 (05:51→21:52)
[2022-10-13] MEDS: InsuLIN REG 1unit/0.01ml Soln (100units/ml) SC SCH ×4 (05:57→22:02)
[2022-10-13 09:00] VITALS: BP 133/66
[2022-10-13] MEDS: ERGOCALCIFEROL 50,000 UNIT(1.25MG) CAP PO SCH (09:59)
[2022-10-13] MEDS: FLUCONAZOLE 100 MG TAB PO SCH (09:59)
[2022-10-13] MEDS: FLORASTOR (S. BOULARDII) 250 MG CAP PO SCH (10:00)
[2022-10-13 13:00] VITALS: BP 128/56
[2022-10-13] MEDS: SODIUM BICARBONATE 50ML VIAL 50 ML in SOD CHL 0.45% 1,000 ML IV SCH ×2 (14:21→16:21)
[2022-10-13 17:00] VITALS: BP 159/69
[2022-10-13 22:00] VITALS: BP 141/68
[2022-10-14] MEDS: ACETAMINOPHEN 650 MG RECT SUPP PR PRN (03:36)
[2022-10-14] MEDS: hydrALAZINE HCL 20 MG/ML VL IV PRN (04:23)
[2022-10-14 05:00] VITALS: BP 167/81
[2022-10-14 05:10] VITALS: BP 110/46
[2022-10-14 05:45] LABS: BUN/Creatinine Ratio 8.3 (10.0-20.0); Calcium 7.1 mg/dL (8.5-10.1); Potassium 3.6 mmol/L (3.5-5.1)
[2022-10-14] MEDS: metroNIDAZOLE 500 MG TAB PO SCH ×3 (06:11→20:50)
[2022-10-14] MEDS: VANCOMYCIN HCL 500MG/5ML ORAL SOL PO SCH ×4 (06:12→20:50)
[2022-10-14] MEDS: ACCU-CHEK COMFORT CURVE STRIP VI SCH ×4 (06:50→20:50)
[2022-10-14] MEDS: InsuLIN REG 1unit/0.01ml Soln (100units/ml) SC SCH ×4 (06:51→22:00)
[2022-10-14 09:00] VITALS: BP 108/48
[2022-10-14] MEDS: FLORASTOR (S. BOULARDII) 250 MG CAP PO SCH (09:43)
[2022-10-14] MEDS: FAMOTIDINE 20 MG TAB PO SCH (09:43)
[2022-10-14] MEDS: FLUCONAZOLE 100 MG TAB PO SCH (09:43)
[2022-10-14] MEDS ORDERED: POTASSIUM EFFERVESENT TAB 25 MEQ PO ONE (11:00)
[2022-10-14 11:26] LABS: % Iron Saturation 9.8 % (15-50)
[2022-10-14 13:00] VITALS: BP 139/60
[2022-10-14] MEDS: ACETAMINOPHEN 325 MG TAB PO PRN (16:25)
[2022-10-14 17:00] VITALS: BP 155/75
[2022-10-14 22:00] VITALS: BP 153/76
[2022-10-15] VITALS (7 sets, daily range): BP systolic 128–172; BP diastolic 67–81
[2022-10-15] MEDS: hydrALAZINE HCL 20 MG/ML VL IV PRN (04:21)
[2022-10-15] MEDS: ACETAMINOPHEN 325 MG TAB PO PRN ×2 (04:30→11:27)
[2022-10-15 05:26] LABS: Basophils # (auto) 0 10 ^3/uL (0-0.2); Basophils % (auto) 0.3 % (0.0-2.0); Eosinophils # (auto) 0.1 10 ^3/uL (0-0.8); Eosinophils % (auto) 0.9 % (0.0-7.0); Hematocrit 31.3 % (36.0-46.0); Hemoglobin 10.1 g/dL (12.2-16.2); Lymphocytes % (auto) 24.8 % (10.0-50.0); Mean Corpuscular Hemoglobin 27.9 pg (28.0-32.0); Mean Corpuscular Hgb Conc. 32.5 g/dL (32.0-36.0); Monocytes # (auto) 0.5 10 ^3/uL (0-1.3); Monocytes % (auto) 6.5 % (0.0-12.0); Neutrophils # (auto) 5.5 10 ^3/uL (1.6-8.6); Neutrophils % (auto) 67.5 % (37.0-80.0); Nucleated Red Blood Cells % 0.2 %; Red Blood Cells 3.63 10^6/uL (4.0-5.20); Red Cell Distribution Width 16.9 % (11.8-14.3); White Blood Cell 8.1 10^3/uL (4.4-10.8)
[2022-10-15 05:37] LABS: BUN/Creatinine Ratio 8.1 (10.0-20.0); Calcium 7.3 mg/dL (8.5-10.1)
[2022-10-15] MEDS: metroNIDAZOLE 500 MG TAB PO SCH ×3 (06:17→21:59)
[2022-10-15] MEDS: InsuLIN REG 1unit/0.01ml Soln (100units/ml) SC SCH ×4 (06:17→22:00)
[2022-10-15] MEDS: VANCOMYCIN HCL 500MG/5ML ORAL SOL PO SCH ×4 (06:21→22:00)
[2022-10-15] MEDS: ACCU-CHEK COMFORT CURVE STRIP VI SCH ×4 (06:21→22:01)
[2022-10-15] MEDS: FLUCONAZOLE 100 MG TAB PO SCH (10:06)
[2022-10-15] MEDS: FLORASTOR (S. BOULARDII) 250 MG CAP PO SCH ×2 (10:06→21:59)
[2022-10-15] MEDS: SODIUM BICARBONATE 50ML VIAL 50 ML in SOD CHL 0.45% 1,000 ML IV SCH ×2 (13:50→22:15)
[2022-10-15] MEDS ORDERED: MORPHINE SULFATE INJ 2 MG/ml SYRG IV PRN (17:00)
[2022-10-16 05:00] VITALS: BP 149/84
[2022-10-16] MEDS: InsuLIN REG 1unit/0.01ml Soln (100units/ml) SC SCH ×4 (05:17→22:00)
[2022-10-16] MEDS: ACCU-CHEK COMFORT CURVE STRIP VI SCH ×4 (05:18→22:42)
[2022-10-16] MEDS: VANCOMYCIN HCL 500MG/5ML ORAL SOL PO SCH ×4 (05:19→22:33)
[2022-10-16] MEDS: metroNIDAZOLE 500 MG TAB PO SCH ×3 (05:20→22:32)
[2022-10-16 06:03] LABS: BUN/Creatinine Ratio 7.6 (10.0-20.0); Calcium 7.1 mg/dL (8.5-10.1); Potassium 4.1 mmol/L (3.5-5.1)
[2022-10-16 07:50] VITALS: BP 163/80
[2022-10-16 08:00] VITALS: BP 127/68
[2022-10-16] MEDS: FAMOTIDINE 20 MG TAB PO SCH (10:54)
[2022-10-16] MEDS: FLORASTOR (S. BOULARDII) 250 MG CAP PO SCH ×2 (10:54→22:33)
[2022-10-16] MEDS: FLUCONAZOLE 100 MG TAB PO SCH (10:54)
[2022-10-16 12:00] VITALS: BP 137/78
[2022-10-16] MEDS: SODIUM BICARBONATE 50ML VIAL 50 ML in SOD CHL 0.45% 1,000 ML IV SCH (13:55)
[2022-10-16 15:57] VITALS: BP 146/85
[2022-10-16 22:00] VITALS: BP 185/84
[2022-10-17] MEDS: SODIUM BICARBONATE 50ML VIAL 50 ML in SOD CHL 0.45% 1,000 ML IV SCH (04:14)
[2022-10-17 05:00] VITALS: BP 171/83
[2022-10-17] MEDS: ACCU-CHEK COMFORT CURVE STRIP VI SCH ×4 (06:10→21:57)
[2022-10-17] MEDS: VANCOMYCIN HCL 500MG/5ML ORAL SOL PO SCH ×4 (06:10→21:56)
[2022-10-17] MEDS: metroNIDAZOLE 500 MG TAB PO SCH ×3 (06:10→21:56)
[2022-10-17] MEDS: InsuLIN REG 1unit/0.01ml Soln (100units/ml) SC SCH ×4 (06:15→22:00)
[2022-10-17 06:59] LABS: Potassium 3.4 mmol/L (3.5-5.1)
[2022-10-17 07:02] LABS: BUN/Creatinine Ratio 7.5 (10.0-20.0)
[2022-10-17 08:00] VITALS: BP 165/81
[2022-10-17] MEDS ORDERED: POTASSIUM CHL 20 Meq TABLET PO ONE (10:45)
[2022-10-17] MEDS ORDERED: amLODIPine BESYLATE 5 MG TAB PO ONE (10:45)
[2022-10-17 12:00] VITALS: BP 143/66
[2022-10-17] MEDS: FLUCONAZOLE 100 MG TAB PO SCH (12:44)
[2022-10-17] MEDS: FLORASTOR (S. BOULARDII) 250 MG CAP PO SCH ×2 (12:45→21:56)
[2022-10-17] MEDS: ACETAMINOPHEN 325 MG TAB PO PRN (13:56)
[2022-10-17 16:00] VITALS: BP 117/64
[2022-10-17 22:19] VITALS: BP 126/59
[2022-10-18 04:33] VITALS: BP 122/59
[2022-10-18] MEDS: VANCOMYCIN HCL 500MG/5ML ORAL SOL PO SCH ×4 (05:10→22:43)
[2022-10-18] MEDS: metroNIDAZOLE 500 MG TAB PO SCH ×3 (05:10→22:43)
[2022-10-18] MEDS: InsuLIN REG 1unit/0.01ml Soln (100units/ml) SC SCH ×4 (06:49→22:00)
[2022-10-18] MEDS: ACCU-CHEK COMFORT CURVE STRIP VI SCH ×4 (06:50→22:00)
[2022-10-18 09:00] VITALS: BP 113/57
[2022-10-18] MEDS: FLUCONAZOLE 100 MG TAB PO SCH (10:03)
[2022-10-18] MEDS: FLORASTOR (S. BOULARDII) 250 MG CAP PO SCH ×2 (10:03→22:43)
[2022-10-18] MEDS: FAMOTIDINE 20 MG TAB PO SCH (10:04)
[2022-10-18] MEDS: amLODIPine BESYLATE 5 MG TAB PO SCH (10:04)
[2022-10-18 13:00] VITALS: BP 119/56
[2022-10-18 17:00] VITALS: BP 109/58
[2022-10-18 21:36] VITALS: BP 116/55
[2022-10-19 05:00] VITALS: BP 188/58
[2022-10-19] MEDS: ACCU-CHEK COMFORT CURVE STRIP VI SCH ×4 (06:01→22:00)
[2022-10-19] MEDS: InsuLIN REG 1unit/0.01ml Soln (100units/ml) SC SCH ×4 (06:01→22:41)
[2022-10-19] MEDS: metroNIDAZOLE 500 MG TAB PO SCH ×3 (06:01→22:23)
[2022-10-19] MEDS: VANCOMYCIN HCL 500MG/5ML ORAL SOL PO SCH ×4 (06:02→22:24)
[2022-10-19 08:00] VITALS: BP 113/60
[2022-10-19] MEDS: FLORASTOR (S. BOULARDII) 250 MG CAP PO SCH ×2 (09:33→22:23)
[2022-10-19] MEDS: amLODIPine BESYLATE 5 MG TAB PO SCH (09:33)
[2022-10-19] MEDS: FLUCONAZOLE 100 MG TAB PO SCH (09:33)
[2022-10-19 12:00] VITALS: BP 109/55
[2022-10-19 13:01] LABS: Potassium 3.5 mmol/L (3.5-5.1)
[2022-10-19 13:12] LABS: BUN/Creatinine Ratio 8.1 (10.0-20.0); Calcium 6.9 mg/dL (8.5-10.1)
[2022-10-19 16:00] VITALS: BP 109/58
[2022-10-19] MEDS ORDERED: SODIUM FERR GLUC 62.5MG/5ML 125 MG in SODIUM CHL 0.9% 100 ML IV ONE (18:00)
[2022-10-19] MEDS ORDERED: SODIUM CHL 0.9% IV ONE (21:00)
[2022-10-19] MEDS ORDERED: IRON SUCROSE COMPLEX IV ONE (21:00)
[2022-10-19 22:00] VITALS: BP 101/43
[2022-10-20 05:00] VITALS: BP 112/49
[2022-10-20 06:02] LABS: Basophils # (auto) 0 10 ^3/uL (0-0.2); Basophils % (auto) 0.4 % (0.0-2.0); Eosinophils # (auto) 0.2 10 ^3/uL (0-0.8); Eosinophils % (auto) 1.9 % (0.0-7.0); Hematocrit 28.2 % (36.0-46.0); Hemoglobin 9.1 g/dL (12.2-16.2); Lymphocytes # (auto) 1.4 10 ^3/uL (0.4-5.4); Lymphocytes % (auto) 17.9 % (10.0-50.0); Mean Corpuscular Hemoglobin 27.8 pg (28.0-32.0); Mean Corpuscular Hgb Conc. 32.4 g/dL (32.0-36.0); Mean Corpuscular Volume 85.8 fL (80.0-100.0); Monocytes # (auto) 0.7 10 ^3/uL (0-1.3); Monocytes % (auto) 8.1 % (0.0-12.0); Neutrophils # (auto) 5.8 10 ^3/uL (1.6-8.6); Neutrophils % (auto) 71.7 % (37.0-80.0); Red Blood Cells 3.28 10^6/uL (4.0-5.20); Red Cell Distribution Width 17.1 % (11.8-14.3)
[2022-10-20 06:10] LABS: BUN/Creatinine Ratio 7.8 (10.0-20.0); Calcium 7.2 mg/dL (8.5-10.1); Potassium 3.2 mmol/L (3.5-5.1)
[2022-10-20] MEDS: VANCOMYCIN HCL 500MG/5ML ORAL SOL PO SCH ×3 (06:50→18:00)
[2022-10-20] MEDS: metroNIDAZOLE 500 MG TAB PO SCH ×2 (06:50→15:04)
[2022-10-20] MEDS: InsuLIN REG 1unit/0.01ml Soln (100units/ml) SC SCH ×3 (06:51→17:00)
[2022-10-20] MEDS: ACCU-CHEK COMFORT CURVE STRIP VI SCH ×3 (06:51→17:00)
[2022-10-20 08:00] VITALS: BP 109/55
[2022-10-20] MEDS: FLORASTOR (S. BOULARDII) 250 MG CAP PO SCH (09:19)
[2022-10-20] MEDS: FLUCONAZOLE 100 MG TAB PO SCH (09:19)
[2022-10-20] MEDS: FAMOTIDINE 20 MG TAB PO SCH (09:19)
[2022-10-20] MEDS: amLODIPine BESYLATE 5 MG TAB PO SCH (09:20)
[2022-10-20] MEDS: ERGOCALCIFEROL 50,000 UNIT(1.25MG) CAP PO SCH (09:22)
[2022-10-20] MEDS ORDERED: POTASSIUM EFFERVESENT TAB 25 MEQ PO ONE (11:45)
[2022-10-20 12:00] VITALS: BP 103/54
[2022-10-20] MEDS ORDERED: IRON SUCROSE COMPLEX 200 MG in SODIUM CHL 0.9% 100 ML IV SCH (12:00)
[2022-10-20] MEDS ORDERED: VANC500PO PO (12:53)
[2022-10-20] MEDS ORDERED: MET500T PO (12:53)
[2022-10-20] MEDS ORDERED: ERGO1CAP23 PO (12:53)
[2022-10-20] MEDS ORDERED: SACC250C PO (12:53)
[2022-10-20] MEDS ORDERED: POTASSIUM CHL 20 Meq TABLET PO ONE (13:30)
[2022-10-20 15:01] VITALS: BP 103/54
[2022-10-20 16:00] VITALS: BP 111/59
== END 2022-10-20 17:20 | disposition home health service (06) | DRG 377 ==
LOC: EDBD 15:34 → ER 15:34 → TELE-EAST 19:07 → EAST 21:50
PROVIDERS: ADMIT Nurse Practitioner Family; ATTEND Internal Medicine
PROC: 30233N1 Transfusion of Nonautologous Red Blood Cells into Peripheral Vein, Percutaneous Approach (ICD-10-PCS; principal; 2022-10-09)
PROC: 0DB68ZX Excision of Stomach, Via Natural or Artificial Opening Endoscopic, Diagnostic (ICD-10-PCS; 2022-10-10)
DX: K29.71 Gastritis, unspecified, with bleeding (principal); E43 Unspecified severe protein-calorie malnutrition; D62 Acute posthemorrhagic anemia; N30.00 Acute cystitis without hematuria; N18.5 Chronic kidney disease, stage 5; N17.9 Acute kidney failure, unspecified; I12.0 Hypertensive chronic kidney disease with stage 5 chronic kidney disease or end stage renal disease; A04.72 Enterocolitis due to Clostridium difficile, not specified as recurrent; E87.20 Acidosis, unspecified; E44.0 Moderate protein-calorie malnutrition; K44.9 Diaphragmatic hernia without obstruction or gangrene; D63.1 Anemia in chronic kidney disease; E86.9 Volume depletion, unspecified; E87.8 Other disorders of electrolyte and fluid balance, not elsewhere classified; E11.65 Type 2 diabetes mellitus with hyperglycemia; E11.22 Type 2 diabetes mellitus with diabetic chronic kidney disease; R62.7 Adult failure to thrive; Z68.20 Body mass index [BMI] 20.0-20.9, adult; Z90.49 Acquired absence of other specified parts of digestive tract; Z74.01 Bed confinement status; Z90.710 Acquired absence of both cervix and uterus; Z83.3 Family history of diabetes mellitus
CPT/HCPCS: 36415; 36600; 43239; 71045; 74176; 80048; 80053; 81001; 82105; 82306; 82378; 82570; 82728; 82805; 82962; 83036; 83540; 83550; 83605; 83690; 83735; 83935; 84100; 84156; 84300; 85025; 85610; 85730; 86300; 86301; 86304; 86850; 86900; 86901; 86920; 87045; 87086; 87088; 87427; 87493; 93005; 97110; 97116; 97163; 97530; C9113; G0378; J0696; J1756; J1815; J2001; J2250; J2405; J7042

== ENCOUNTER 2023-02-13 14:13 | Inpatient (IN) | payer MEDICARE, MEDICAID ==
[2023-02-13] VITALS (15 sets, daily range): BP systolic 97–133; BP diastolic 47–60; PULSE 63–115; RESP 12–21; TEMP 93.4–96.8; O2SAT 100
[~2023-02-13] VITALS: Ht 152.4 cm; Wt 59.3 kg
[~2023-02-13 14:13] MED LIST changes: -ACET-1156 PO; +ACET-1881 PO; +AMLO1TAB23 PO; +ERGO1CAP23 PO; -FERR-7 PO; -FLUC200T50 PO; -LOP2C PO; +LORA-1121; +MET500T PO; -PROM25TA5 PO; +SACC250C PO; -SODI650T PO; +VANC500PO PO
[2023-02-13] MEDS ORDERED: SODIUM CHLORIDE 0.9% 1,000 ML IV ONE (14:30)
[2023-02-13] MEDS ORDERED: MIDAZOLAM HCL 5 MG/ML-1ML VIAL ONE (14:51)
[2023-02-13] MEDS ORDERED: MIDAZOLAM DRIP 50 mg/50mL 50 ML IV ONE (14:56)
[2023-02-13] MEDS ORDERED: PANTOPRAZOLE 40mg/50ML NS AE 50 ML IV ONE ×2 (15:00→15:15)
[2023-02-13] MEDS ORDERED: PANTOPRAZOLE 40 MG/10 ML VIAL INJ IV ONE ×2 (15:01→15:15)
[2023-02-13] MEDS: MIDAZOLAM DRIP 50 mg/50mL 50 ML IV SCH (15:08)
[2023-02-13] MEDS ORDERED: NOREPINEPHRINE 8 MG/250ML KIT 250 ML IV ONE (15:09)
[2023-02-13] MEDS ORDERED: cefTRIAXone 1GM/50ML D5W 50 ML IV ONE (15:15)
[2023-02-13] MEDS ORDERED: metroNIDAZOLE 500MG/100ML 100 ML IV ONE (15:15)
[2023-02-13] MEDS: NOREPINEPHRINE 8 MG/250ML KIT 250 ML IV SCH (15:43)
[2023-02-13 16:38] LABS: Basophils # (auto) 0.1 10 ^3/uL (0-0.2); Basophils % (auto) 0.3 % (0.0-2.0); Eosinophils # (auto) 0.1 10 ^3/uL (0-0.8); Eosinophils % (auto) 0.4 % (0.0-7.0); Hematocrit 21.6 % (36.0-46.0); Lymphocytes # (auto) 1.1 10 ^3/uL (0.4-5.4); Mean Corpuscular Hemoglobin 27.3 pg (28.0-32.0); Monocytes # (auto) 0.1 10 ^3/uL (0-1.3); Monocytes % (auto) 0.8 % (0.0-12.0); Neutrophils # (auto) 14.6 10 ^3/uL (1.6-8.6); Neutrophils % (auto) 91.5 % (37.0-80.0); Red Cell Distribution Width 17.4 % (11.8-14.3); White Blood Cell 15.9 10^3/uL (4.4-10.8)
[2023-02-13 16:39] LABS: Base Excess -15.6 mmol/L (-2.0-2.0)
[2023-02-13 16:43] LABS: Hemoglobin 6.3 g/dL (12.2-16.2)
[2023-02-13 16:50] LABS: Albumin 1.8 g/dL (3.2-4.8); Alkaline Phosphatase 89 U/L (46-116); Anion Gap 8.00001 (5-15); Aspartate Aminotransferase 9 U/L (13-40); BUN/Creatinine Ratio 18.4 (10.0-20.0); Bilirubin, Total < 0.2 mg/dL (0.2-1.0); Blood Urea Nitrogen 38 mg/dL (9-23); Chloride 129 mmol/L (98-107); Glucose 123 mg/dL (74-106); Potassium 3.3 mmol/L (3.5-5.1); Sodium 147 mmol/L (136-145); Total Protein 4.4 g/dL (5.7-8.2)
[2023-02-13 16:51] LABS: Alanine Aminotransferase < 9 U/L (7-40)
[2023-02-13 16:52] LABS: Calcium 5.2 mg/dL (8.5-10.1); Carbon Dioxide < 10.0 mmol/L (20-30)
[2023-02-13 17:00] LABS: INR 1.07 (0.9-1.15); Partial Thromboplastin Time 30.8 SEC (24.5-34.5); Prothrombin Time 11.2 sec (9.3-11.8)
[2023-02-13 17:08] LABS: Lactic Acid w/Reflex 2.1 mmol/L (0.4-2.0)
[2023-02-13] MEDS ORDERED: CALCIUM GLUC 1,000mg/50ml-NS 50 ML IV ONE (18:45)
[2023-02-13] MEDS ORDERED: ALBUMIN 25% 100 ML IV ONE (21:15)
[2023-02-13] MEDS ORDERED: ONDANSETRON HCL 4 MG/2 ML VIAL IV PRN (21:15)
[2023-02-13] MEDS ORDERED: SODIUM BICARBONATE 50ML VIAL 50 ML in SOD CHL 0.45% 1,000 ML IV SCH (21:15)
[2023-02-13] MEDS ORDERED: POTASSIUM CHLORIDE 40 MEQ in SOD CHL 0.45% 1,000 ML IV SCH (22:00)
[2023-02-13] MEDS: FAMOTIDINE (10MG/ML) 2ML VL IV SCH (23:00)
[2023-02-13] MEDS: metroNIDAZOLE 500MG/100ML 100 ML IV SCH (23:34)
[2023-02-13] MEDS ORDERED: SOD CHL 0.9%/ KCL 40MEQ 1,000 ML IV ONE (23:45)
[2023-02-13] MEDS ORDERED: MORPHINE SULFATE INJ 2 MG/ml SYRG IV PRN (23:45)
[2023-02-13] MEDS ORDERED: NITROGLYCERIN 0.4 MG SL TAB SL PRN (23:45)
[2023-02-14] VITALS (93 sets, daily range): BP systolic 94–172; BP diastolic 42–129; PULSE 64–77; RESP 13–25; TEMP 95.7–99.5; O2SAT 100
[2023-02-14] MEDS: ACCU-CHEK COMFORT CURVE STRIP VI SCH ×4 (00:28→17:50)
[2023-02-14] MEDS: InsuLIN REG 1unit/0.01ml Soln (100units/ml) SC SCH ×4 (00:42→17:50)
[2023-02-14] MEDS ORDERED: SODIUM BICARBONATE 8.4 % INJ 50ML VIAL IV ONE (01:05)
[2023-02-14 04:18] LABS: Basophils # (auto) 0 10 ^3/uL (0-0.2); Basophils % (auto) 0.1 % (0.0-2.0); Eosinophils # (auto) 0 10 ^3/uL (0-0.8); Hematocrit 32.4 % (36.0-46.0); Hemoglobin 10.1 g/dL (12.2-16.2); Lymphocytes # (auto) 0.8 10 ^3/uL (0.4-5.4); Lymphocytes % (auto) 3.8 % (10.0-50.0); Mean Corpuscular Hemoglobin 27.7 pg (28.0-32.0); Mean Corpuscular Hgb Conc. 31.1 g/dL (32.0-36.0); Mean Corpuscular Volume 89.1 fL (80.0-100.0); Monocytes # (auto) 0.5 10 ^3/uL (0-1.3); Monocytes % (auto) 2.5 % (0.0-12.0); Neutrophils # (auto) 19.6 10 ^3/uL (1.6-8.6); Neutrophils % (auto) 93.6 % (37.0-80.0); Red Blood Cells 3.64 10^6/uL (4.0-5.20); Red Cell Distribution Width 15.5 % (11.8-14.3); White Blood Cell 20.9 10^3/uL (4.4-10.8)
[2023-02-14 05:03] LABS: Albumin 3.2 g/dL (3.2-4.8); Alkaline Phosphatase 111 U/L (46-116); Anion Gap 11.8 (5-15); Aspartate Aminotransferase 22 U/L (13-40); BUN/Creatinine Ratio 15.8 (10.0-20.0); Calcium 7.7 mg/dL (8.7-10.4); Carbon Dioxide 11.2 mmol/L (20-30); Chloride 121 mmol/L (98-107); Glucose 99 mg/dL (74-106); Potassium 4.7 mmol/L (3.5-5.1); Sodium 144 mmol/L (136-145)
[2023-02-14 05:04] LABS: Bilirubin, Total 0.3 mg/dL (0.2-1.0); Total Protein 6.8 g/dL (5.7-8.2)
[2023-02-14 05:08] LABS: Alanine Aminotransferase < 9 U/L (7-40); Blood Urea Nitrogen 49 mg/dL (9-23)
[2023-02-14] MEDS: metroNIDAZOLE 500MG/100ML 100 ML IV SCH ×3 (07:20→22:20)
[2023-02-14] MEDS ORDERED: SODIUM BICARBONATE 50ML VIAL 75 ML in SOD CHL 0.45% 1,000 ML IV SCH (07:30)
[2023-02-14] MEDS: DEXTROSE (50%) 50ML SYRG IV PRN (07:40)
[2023-02-14 08:16] LABS: Base Excess -14.1 mmol/L (-2.0-2.0)
[2023-02-14] MEDS: FAMOTIDINE (10MG/ML) 2ML VL IV SCH ×2 (09:23→22:20)
[2023-02-14] MEDS: cefTRIAXone 1GM/50ML D5W 50 ML IV SCH (09:23)
[2023-02-14] MEDS ORDERED: HEPARIN SODIUM (PORCINE) 5000 UNITS/ML 1ML VIAL SC SCH (10:00)
[2023-02-14 10:45] LABS: Base Excess -13.3 mmol/L (-2.0-2.0)
[2023-02-14] MEDS ORDERED: SODIUM CHLORIDE 0.9% 1,000 ML IV SCH ×2 (10:45→11:15)
[2023-02-14 11:50] LABS: Lipase 29 U/L (12-53)
[2023-02-14 11:51] LABS: Amylase 88 U/L (30-118)
[2023-02-14 11:52] LABS: Creatine Kinase IFCC 65 U/L (34-145)
[2023-02-14] MEDS: MIDAZOLAM DRIP 50 mg/50mL 50 ML IV SCH ×3 (12:58→22:20)
[2023-02-14] MEDS: SODIUM BICARBONATE 50ML VIAL 150 ML in D5W 5% 1,000 ML IV SCH (12:59)
[2023-02-14 13:13] LABS: Urine Bacteria FEW /hpf (None Seen); Urine Blood TRACE /uL (Negative); Urine Clarity HAZY (Clear); Urine Color Yellow (Yellow); Urine Mucus FEW (None Seen); Urine Protein, UAD 2+ (Negative); Urine Specific Gravity 1.013 (1.001-1.035); Urine Urobilinogen Normal (Negative); Urine WBC 45 /hpf (0 - 5); Urine pH 5.5 (5.0-8.0)
[2023-02-14 13:24] LABS: Creatinine, Urine 34.77 mg/dL (30.0-125.0)
[2023-02-14 13:27] LABS: Protein, Urine 262.5 mg/dL (0.0-11.9)
[2023-02-14] MEDS: NOREPINEPHRINE 8 MG/250ML KIT 250 ML IV SCH (15:15)
[2023-02-15] VITALS (103 sets, daily range): BP systolic 97–180; BP diastolic 41–86; PULSE 69–98; RESP 15–27; TEMP 96.6–98.1; O2SAT 99–100
[2023-02-15] MEDS: SODIUM BICARBONATE 50ML VIAL 150 ML in D5W 5% 1,000 ML IV SCH ×2 (00:13→13:17)
[2023-02-15] MEDS: ACCU-CHEK COMFORT CURVE STRIP VI SCH ×4 (00:14→18:13)
[2023-02-15] MEDS: InsuLIN REG 1unit/0.01ml Soln (100units/ml) SC SCH ×4 (00:21→18:00)
[2023-02-15] MEDS: MIDAZOLAM DRIP 50 mg/50mL 50 ML IV SCH ×2 (02:20→08:21)
[2023-02-15 04:32] LABS: Basophils # (auto) 0 10 ^3/uL (0-0.2); Basophils % (auto) 0.3 % (0.0-2.0); Eosinophils # (auto) 0.1 10 ^3/uL (0-0.8); Eosinophils % (auto) 0.7 % (0.0-7.0); Hematocrit 34.4 % (36.0-46.0); Lymphocytes # (auto) 1.2 10 ^3/uL (0.4-5.4); Lymphocytes % (auto) 8.7 % (10.0-50.0); Mean Corpuscular Hemoglobin 27.8 pg (28.0-32.0); Mean Corpuscular Volume 86.7 fL (80.0-100.0); Monocytes # (auto) 0.5 10 ^3/uL (0-1.3); Monocytes % (auto) 3.2 % (0.0-12.0); Neutrophils # (auto) 12.2 10 ^3/uL (1.6-8.6); Neutrophils % (auto) 87.1 % (37.0-80.0); Red Blood Cells 3.96 10^6/uL (4.0-5.20); Red Cell Distribution Width 15.9 % (11.8-14.3); White Blood Cell 14.1 10^3/uL (4.4-10.8)
[2023-02-15 04:57] LABS: Alkaline Phosphatase 99 U/L (46-116); Anion Gap 10.6 (5-15); BUN/Creatinine Ratio 15.9 (10.0-20.0); Blood Urea Nitrogen 47 mg/dL (9-23); Calcium 7.3 mg/dL (8.7-10.4); Carbon Dioxide 17.4 mmol/L (20-30); Chloride 116 mmol/L (98-107); Glucose 75 mg/dL (74-106); Potassium 3.4 mmol/L (3.5-5.1); Sodium 144 mmol/L (136-145)
[2023-02-15 04:59] LABS: Albumin 2.8 g/dL (3.2-4.8); Aspartate Aminotransferase 16 U/L (13-40); Bilirubin, Total 0.2 mg/dL (0.2-1.0); Total Protein 6.2 g/dL (5.7-8.2)
[2023-02-15 05:04] LABS: Alanine Aminotransferase < 9 U/L (7-40)
[2023-02-15] MEDS: metroNIDAZOLE 500MG/100ML 100 ML IV SCH ×3 (05:48→22:04)
[2023-02-15] MEDS: DEXTROSE (50%) 50ML SYRG IV PRN (05:48)
[2023-02-15 06:21] LABS: Base Excess -4.1 mmol/L (-2.0-2.0)
[2023-02-15 06:34] LABS: Erythrocyte Sedimentation Rate 34 mm/hr (0-20)
[2023-02-15] MEDS ORDERED: POTASSIUM CHL 20MEQ/100ML 100 ML IV ONE (08:00)
[2023-02-15] MEDS: FAMOTIDINE (10MG/ML) 2ML VL IV SCH ×2 (10:52→22:04)
[2023-02-15] MEDS: cefTRIAXone 1GM/50ML D5W 50 ML IV SCH (10:53)
[2023-02-15] MEDS ORDERED: LACTATED RINGER'S 1,000 ML IV SCH (14:30)
[2023-02-15] MEDS: NOREPINEPHRINE 8 MG/250ML KIT 250 ML IV SCH (15:15)
[2023-02-15] MEDS: hydrALAZINE HCL 20 MG/ML VL IV PRN (22:37)
[2023-02-16] VITALS (81 sets, daily range): BP systolic 83–172; BP diastolic 40–85; PULSE 80–111; RESP 11–25; TEMP 96.8–99.7; O2SAT 30–100
[2023-02-16 04:37] LABS: Anion Gap 7.8 (5-15); Basophils # (auto) 0 10 ^3/uL (0-0.2); Basophils % (auto) 0.2 % (0.0-2.0); Carbon Dioxide 21.2 mmol/L (20-30); Chloride 114 mmol/L (98-107); Eosinophils # (auto) 0 10 ^3/uL (0-0.8); Eosinophils % (auto) 0.3 % (0.0-7.0); Hematocrit 33.1 % (36.0-46.0); Hemoglobin 10.8 g/dL (12.2-16.2); Lymphocytes # (auto) 1.1 10 ^3/uL (0.4-5.4); Lymphocytes % (auto) 8.6 % (10.0-50.0); Mean Corpuscular Hemoglobin 28.2 pg (28.0-32.0); Mean Corpuscular Hgb Conc. 32.6 g/dL (32.0-36.0); Mean Corpuscular Volume 86.5 fL (80.0-100.0); Monocytes # (auto) 0.4 10 ^3/uL (0-1.3); Monocytes % (auto) 3.3 % (0.0-12.0); Neutrophils # (auto) 11.3 10 ^3/uL (1.6-8.6); Neutrophils % (auto) 87.6 % (37.0-80.0); Potassium 3.5 mmol/L (3.5-5.1); Red Blood Cells 3.83 10^6/uL (4.0-5.20); Red Cell Distribution Width 15.6 % (11.8-14.3); Sodium 143 mmol/L (136-145); White Blood Cell 12.9 10^3/uL (4.4-10.8)
[2023-02-16 04:38] LABS: Calcium 7.4 mg/dL (8.7-10.4)
[2023-02-16 04:42] LABS: Glucose 97 mg/dL (74-106)
[2023-02-16 04:43] LABS: BUN/Creatinine Ratio 13.5 (10.0-20.0); Blood Urea Nitrogen 41 mg/dL (9-23)
[2023-02-16] MEDS: InsuLIN REG 1unit/0.01ml Soln (100units/ml) SC SCH ×4 (06:00→18:00)
[2023-02-16] MEDS: metroNIDAZOLE 500MG/100ML 100 ML IV SCH ×3 (06:29→21:38)
[2023-02-16] MEDS: ACCU-CHEK COMFORT CURVE STRIP VI SCH ×4 (06:29→18:00)
[2023-02-16 07:17] LABS: Base Excess -3.4 mmol/L (-2.0-2.0)
[2023-02-16] MEDS: hydrALAZINE HCL 20 MG/ML VL IV PRN ×2 (09:37→21:38)
[2023-02-16] MEDS: cefTRIAXone 1GM/50ML D5W 50 ML IV SCH (09:37)
[2023-02-16] MEDS: FAMOTIDINE (10MG/ML) 2ML VL IV SCH (09:39)
[2023-02-16] MEDS: FLORASTOR (S. BOULARDII) 250 MG CAP PO SCH (09:39)
[2023-02-16] MEDS: LACTATED RINGER'S 1,000 ML IV SCH (12:30)
[2023-02-16] MEDS ORDERED: BUMETANIDE 2.5mg/10ml (0.25 mg/ml) INJ IV ONE (13:15)
[2023-02-16] MEDS: NOREPINEPHRINE 8 MG/250ML KIT 250 ML IV SCH (15:15)
[2023-02-16] MEDS: MIDAZOLAM DRIP 50 mg/50mL 50 ML IV SCH (15:15)
[2023-02-16] MEDS: PANTOPRAZOLE 40 MG/10 ML VIAL INJ IV SCH (21:38)
[2023-02-17] VITALS (80 sets, daily range): BP systolic 96–178; BP diastolic 45–87; PULSE 74–104; RESP 11–24; TEMP 63.1–98.8; O2SAT 96–100
[2023-02-17] MEDS: ACCU-CHEK COMFORT CURVE STRIP VI SCH ×4 (00:03→17:58)
[2023-02-17 04:01] LABS: Basophils # (auto) 0 10 ^3/uL (0-0.2); Basophils % (auto) 0.2 % (0.0-2.0); Eosinophils # (auto) 0 10 ^3/uL (0-0.8); Eosinophils % (auto) 0.2 % (0.0-7.0); Hematocrit 34.2 % (36.0-46.0); Hemoglobin 11.4 g/dL (12.2-16.2); Lymphocytes % (auto) 7.6 % (10.0-50.0); Mean Corpuscular Hemoglobin 28.7 pg (28.0-32.0); Mean Corpuscular Hgb Conc. 33.2 g/dL (32.0-36.0); Mean Corpuscular Volume 86.7 fL (80.0-100.0); Monocytes # (auto) 0.6 10 ^3/uL (0-1.3); Monocytes % (auto) 4.1 % (0.0-12.0); Neutrophils # (auto) 12.1 10 ^3/uL (1.6-8.6); Neutrophils % (auto) 87.9 % (37.0-80.0); Red Blood Cells 3.95 10^6/uL (4.0-5.20); Red Cell Distribution Width 15.5 % (11.8-14.3); White Blood Cell 13.8 10^3/uL (4.4-10.8)
[2023-02-17 04:19] LABS: Chloride 113 mmol/L (98-107); Potassium 3.3 mmol/L (3.5-5.1); Sodium 143 mmol/L (136-145)
[2023-02-17 04:20] LABS: Anion Gap 10.6 (5-15); Calcium 7.8 mg/dL (8.7-10.4); Carbon Dioxide 19.4 mmol/L (20-30)
[2023-02-17 04:25] LABS: Glucose 93 mg/dL (74-106)
[2023-02-17 04:26] LABS: BUN/Creatinine Ratio 12.1 (10.0-20.0); Blood Urea Nitrogen 38 mg/dL (9-23)
[2023-02-17] MEDS: LACTATED RINGER'S 1,000 ML IV SCH (05:03)
[2023-02-17] MEDS: metroNIDAZOLE 500MG/100ML 100 ML IV SCH ×3 (05:14→22:11)
[2023-02-17] MEDS: InsuLIN REG 1unit/0.01ml Soln (100units/ml) SC SCH ×4 (05:55→18:00)
[2023-02-17] MEDS ORDERED: BUMETANIDE 2.5mg/10ml (0.25 mg/ml) INJ IV ONE (08:00)
[2023-02-17] MEDS ORDERED: POTASSIUM CHL 20MEQ/100ML 100 ML IV ONE (09:00)
[2023-02-17] MEDS: cefTRIAXone 1GM/50ML D5W 50 ML IV SCH (09:03)
[2023-02-17] MEDS: FLORASTOR (S. BOULARDII) 250 MG CAP PO SCH (09:04)
[2023-02-17] MEDS: PANTOPRAZOLE 40 MG/10 ML VIAL INJ IV SCH ×2 (09:04→22:10)
[2023-02-17 09:22] LABS: Base Excess -4.8 mmol/L (-2.0-2.0)
[2023-02-17 11:48] LABS: Base Excess -6.5 mmol/L (-2.0-2.0)
[2023-02-17] MEDS: DEXTROSE (50%) 50ML SYRG IV PRN (12:24)
[2023-02-17] MEDS ORDERED: CLINIMIX PER PHARMACY 0 ML IV SCH (12:45)
[2023-02-17 13:27] LABS: Magnesium 1.5 mg/dL (1.6-2.6)
[2023-02-17] MEDS ORDERED: MAGNESIUM SULFATE 1GM/100ML 100 ML IV ONE (14:15)
[2023-02-17] MEDS: MIDAZOLAM DRIP 50 mg/50mL 50 ML IV SCH (15:15)
[2023-02-17] MEDS: NOREPINEPHRINE 8 MG/250ML KIT 250 ML IV SCH (15:15)
[2023-02-17] MEDS: hydrALAZINE HCL 20 MG/ML VL IV PRN (16:50)
[2023-02-17] MEDS: BUMETANIDE 2.5mg/10ml (0.25 mg/ml) INJ IV SCH (17:58)
[2023-02-17] MEDS: AMINO ACID INFUSION IN D10W 1,000 ML IV NR (22:11)
[2023-02-18] VITALS (52 sets, daily range): BP systolic 95–171; BP diastolic 52–78; PULSE 80–108; RESP 14–29; TEMP 95.9–98.8; O2SAT 67–100
[2023-02-18] MEDS: hydrALAZINE HCL 20 MG/ML VL IV PRN ×2 (01:00→06:44)
[2023-02-18] MEDS: ACCU-CHEK COMFORT CURVE STRIP VI SCH ×4 (01:00→18:07)
[2023-02-18] MEDS: InsuLIN REG 1unit/0.01ml Soln (100units/ml) SC SCH ×4 (01:03→18:07)
[2023-02-18 04:11] LABS: Basophils # (auto) 0 10 ^3/uL (0-0.2); Basophils % (auto) 0.3 % (0.0-2.0); Eosinophils # (auto) 0.1 10 ^3/uL (0-0.8); Eosinophils % (auto) 1.1 % (0.0-7.0); Hematocrit 34.7 % (36.0-46.0); Hemoglobin 11.4 g/dL (12.2-16.2); Lymphocytes # (auto) 1.3 10 ^3/uL (0.4-5.4); Lymphocytes % (auto) 10.1 % (10.0-50.0); Mean Corpuscular Hemoglobin 28.7 pg (28.0-32.0); Mean Corpuscular Hgb Conc. 32.8 g/dL (32.0-36.0); Mean Corpuscular Volume 87.2 fL (80.0-100.0); Monocytes # (auto) 0.6 10 ^3/uL (0-1.3); Monocytes % (auto) 4.8 % (0.0-12.0); Neutrophils # (auto) 10.4 10 ^3/uL (1.6-8.6); Neutrophils % (auto) 83.7 % (37.0-80.0); Nucleated Red Blood Cells % 0.1 %; Red Blood Cells 3.98 10^6/uL (4.0-5.20); Red Cell Distribution Width 15.9 % (11.8-14.3); White Blood Cell 12.4 10^3/uL (4.4-10.8)
[2023-02-18 04:30] LABS: Albumin 2.6 g/dL (3.2-4.8); Alkaline Phosphatase 110 U/L (46-116); Anion Gap 9 (5-15); Aspartate Aminotransferase 10 U/L (13-40); BUN/Creatinine Ratio 11.7 (10.0-20.0); Blood Urea Nitrogen 37 mg/dL (9-23); Calcium 7.8 mg/dL (8.5-10.1); Carbon Dioxide 21 mmol/L (20-30); Chloride 113 mmol/L (98-107); Glucose 128 mg/dL (74-106); Magnesium 1.7 mg/dL (1.6-2.6); Phosphorus 3.7 mg/dL (2.4-5.1); Potassium 3.2 mmol/L (3.5-5.1); Sodium 143 mmol/L (136-145)
[2023-02-18 04:31] LABS: Bilirubin, Total 0.2 mg/dL (0.2-1.0); Total Protein 6.3 g/dL (5.7-8.2)
[2023-02-18 04:45] LABS: Alanine Aminotransferase < 9 U/L (7-40)
[2023-02-18] MEDS: BUMETANIDE 2.5mg/10ml (0.25 mg/ml) INJ IV SCH ×2 (05:31→18:07)
[2023-02-18] MEDS: metroNIDAZOLE 500MG/100ML 100 ML IV SCH ×2 (05:32→14:13)
[2023-02-18] MEDS: cefTRIAXone 1GM/50ML D5W 50 ML IV SCH (08:54)
[2023-02-18] MEDS: POTASSIUM CHL 20MEQ/100ML 100 ML IV SCH ×2 (09:57→12:14)
[2023-02-18] MEDS: FLORASTOR (S. BOULARDII) 250 MG CAP PO SCH (09:57)
[2023-02-18] MEDS ORDERED: POTASSIUM CHL 20MEQ/100ML 100 ML IV SCH (10:15)
[2023-02-18] MEDS: PANTOPRAZOLE 40 MG/10 ML VIAL INJ IV SCH ×2 (12:17→23:14)
[2023-02-18] MEDS: PIPERACILLIN-TAZOB 3.375GM 100 ML IV SCH (17:57)
[2023-02-18] MEDS: AMINO ACID INFUSION IN D10W 1,000 ML IV NR (20:24)
[2023-02-18] MEDS ORDERED: SUCCINYLCHOLINE CHLORIDE 20 MG/ML 10ML VIAL IV ONE ×2 (21:00→21:15)
[2023-02-18] MEDS ORDERED: ETOMIDATE (2MG/ML) 20ML VIAL IV ONE ×2 (21:00→21:15)
[2023-02-18] MEDS ORDERED: NOREPINEPHRINE 8 MG/250ML KIT 250 ML IV ONE (21:17)
[2023-02-18] MEDS ORDERED: SODIUM BICARBONATE 8.4 % INJ 50ML VIAL IV ONE ×2 (21:22→21:30)
[2023-02-18 21:28] LABS: Base Excess -5.3 mmol/L (-2.0-2.0)
[2023-02-18] MEDS ORDERED: MIDAZOLAM DRIP 50 mg/50mL 50 ML IV ONE (21:29)
[2023-02-18 22:34] LABS: Base Excess -2.9 mmol/L (-2.0-2.0)
[2023-02-18] MEDS: MIDAZOLAM DRIP 50 mg/50mL 50 ML IV SCH (23:00)
[2023-02-19] VITALS (100 sets, daily range): BP systolic 82–164; BP diastolic 39–83; PULSE 72–123; RESP 15–28; TEMP 97.2–99; O2SAT 90–100
[2023-02-19] MEDS: ACCU-CHEK COMFORT CURVE STRIP VI SCH ×4 (00:07→18:16)
[2023-02-19] MEDS: InsuLIN REG 1unit/0.01ml Soln (100units/ml) SC SCH ×4 (00:08→18:20)
[2023-02-19] MEDS: hydrALAZINE HCL 20 MG/ML VL IV PRN (02:43)
[2023-02-19] MEDS: PIPERACILLIN-TAZOB 3.375GM 100 ML IV SCH ×2 (04:18→17:09)
[2023-02-19] MEDS: MIDAZOLAM DRIP 50 mg/50mL 50 ML IV SCH (04:20)
[2023-02-19 04:39] LABS: Basophils # (auto) 0 10 ^3/uL (0-0.2); Basophils % (auto) 0.1 % (0.0-2.0); Eosinophils # (auto) 0 10 ^3/uL (0-0.8); Eosinophils % (auto) 0.2 % (0.0-7.0); Hematocrit 33.6 % (36.0-46.0); Hemoglobin 11.1 g/dL (12.2-16.2); Lymphocytes # (auto) 0.8 10 ^3/uL (0.4-5.4); Lymphocytes % (auto) 5.2 % (10.0-50.0); Mean Corpuscular Hemoglobin 28.8 pg (28.0-32.0); Mean Corpuscular Hgb Conc. 33.2 g/dL (32.0-36.0); Mean Corpuscular Volume 86.8 fL (80.0-100.0); Monocytes # (auto) 0.5 10 ^3/uL (0-1.3); Monocytes % (auto) 3.1 % (0.0-12.0); Neutrophils # (auto) 13.5 10 ^3/uL (1.6-8.6); Neutrophils % (auto) 91.4 % (37.0-80.0); Red Blood Cells 3.87 10^6/uL (4.0-5.20); Red Cell Distribution Width 15.8 % (11.8-14.3); White Blood Cell 14.8 10^3/uL (4.4-10.8)
[2023-02-19 04:57] LABS: Albumin 2.5 g/dL (3.2-4.8); Alkaline Phosphatase 113 U/L (46-116); Anion Gap 9 (5-15); Aspartate Aminotransferase 8 U/L (13-40); BUN/Creatinine Ratio 12.7 (10.0-20.0); Blood Urea Nitrogen 40 mg/dL (9-23); Calcium 7.4 mg/dL (8.5-10.1); Carbon Dioxide 21 mmol/L (20-30); Chloride 113 mmol/L (98-107); Glucose 138 mg/dL (74-106); Magnesium 1.5 mg/dL (1.6-2.6); Potassium 3.1 mmol/L (3.5-5.1); Sodium 143 mmol/L (136-145)
[2023-02-19 04:58] LABS: Bilirubin, Total 0.2 mg/dL (0.2-1.0); Total Protein 5.8 g/dL (5.7-8.2)
[2023-02-19 05:39] LABS: Alanine Aminotransferase < 9 U/L (7-40)
[2023-02-19] MEDS: BUMETANIDE 2.5mg/10ml (0.25 mg/ml) INJ IV SCH (06:02)
[2023-02-19] MEDS ORDERED: POTASSIUM CHL 20MEQ/100ML 100 ML IV ONE ×2 (06:30→06:32)
[2023-02-19 08:01] LABS: Base Excess -4.6 mmol/L (-2.0-2.0)
[2023-02-19] MEDS ORDERED: POTASSIUM PHOSPHATE 22 MEQ in SODIUM CHL 0.9% 100 ML IV ONE (10:00)
[2023-02-19] MEDS: MAGNESIUM SULFATE 1GM/100ML 100 ML IV SCH ×2 (10:21→12:11)
[2023-02-19] MEDS: PANTOPRAZOLE 40 MG/10 ML VIAL INJ IV SCH ×2 (10:21→22:30)
[2023-02-19] MEDS: FLORASTOR (S. BOULARDII) 250 MG CAP PO SCH (10:21)
[2023-02-19] MEDS: NOREPINEPHRINE 8 MG/250ML KIT 250 ML IV SCH (16:30)
[2023-02-19] MEDS ORDERED: ENOXAPARIN SOD 30 MG/0.3 ML SYRINGE SC ONE (17:00)
[2023-02-19] MEDS: AMINO ACID INFUSION IN D10W 1,000 ML IV NR (20:19)
[2023-02-20] VITALS (107 sets, daily range): BP systolic 39–175; BP diastolic 24–76; PULSE 83–125; RESP 16–30; TEMP 93.9–102.2; O2SAT 95–100
[2023-02-20] MEDS: PIPERACILLIN-TAZOB 3.375GM 100 ML IV SCH ×2 (04:06→16:53)
[2023-02-20 04:44] LABS: Basophils # (auto) 0 10 ^3/uL (0-0.2); Basophils % (auto) 0.1 % (0.0-2.0); Eosinophils # (auto) 0.2 10 ^3/uL (0-0.8); Eosinophils % (auto) 1.7 % (0.0-7.0); Hematocrit 31.4 % (36.0-46.0); Hemoglobin 10.2 g/dL (12.2-16.2); Lymphocytes # (auto) 1.2 10 ^3/uL (0.4-5.4); Lymphocytes % (auto) 9.1 % (10.0-50.0); Mean Corpuscular Hemoglobin 28.5 pg (28.0-32.0); Mean Corpuscular Hgb Conc. 32.5 g/dL (32.0-36.0); Mean Corpuscular Volume 87.7 fL (80.0-100.0); Monocytes # (auto) 0.4 10 ^3/uL (0-1.3); Monocytes % (auto) 3.3 % (0.0-12.0); Neutrophils # (auto) 11.3 10 ^3/uL (1.6-8.6); Neutrophils % (auto) 85.8 % (37.0-80.0); Red Blood Cells 3.58 10^6/uL (4.0-5.20); White Blood Cell 13.2 10^3/uL (4.4-10.8)
[2023-02-20 05:04] LABS: Alkaline Phosphatase 128 U/L (46-116); Anion Gap 10 (5-15); Blood Urea Nitrogen 47 mg/dL (9-23); Calcium 7.2 mg/dL (8.7-10.4); Carbon Dioxide 19 mmol/L (20-30); Chloride 109 mmol/L (98-107); Glucose 135 mg/dL (74-106); Potassium 3.4 mmol/L (3.5-5.1); Sodium 138 mmol/L (136-145)
[2023-02-20 05:05] LABS: Albumin 2.3 g/dL (3.2-4.8); Aspartate Aminotransferase < 8 U/L (13-40); BUN/Creatinine Ratio 13.7 (10.0-20.0); Bilirubin, Total 0.2 mg/dL (0.2-1.0); Phosphorus 2.8 mg/dL (2.4-5.1); Total Protein 5.4 g/dL (5.7-8.2)
[2023-02-20 05:18] LABS: Alanine Aminotransferase < 9 U/L (7-40)
[2023-02-20] MEDS: InsuLIN REG 1unit/0.01ml Soln (100units/ml) SC SCH ×4 (06:00→16:49)
[2023-02-20] MEDS: ACCU-CHEK COMFORT CURVE STRIP VI SCH ×4 (06:14→16:45)
[2023-02-20] MEDS: BUMETANIDE 2.5mg/10ml (0.25 mg/ml) INJ IV SCH (07:15)
[2023-02-20 07:26] LABS: Base Excess -5.9 mmol/L (-2.0-2.0)
[2023-02-20] MEDS: PROPOFOL 100 ML IV SCH (09:52)
[2023-02-20] MEDS: FLORASTOR (S. BOULARDII) 250 MG CAP PO SCH (10:00)
[2023-02-20] MEDS: PANTOPRAZOLE 40 MG/10 ML VIAL INJ IV SCH ×2 (10:04→22:10)
[2023-02-20] MEDS ORDERED: POTASSIUM EFFERVESENT TAB 25 MEQ PO ONE (11:30)
[2023-02-20] MEDS: SODIUM BICARBONATE 50ML VIAL 50 ML in SOD CHL 0.45% 1,000 ML IV SCH ×2 (11:58→22:11)
[2023-02-20] MEDS: ALBUTEROL SULF 2.5 MG/0.5ML(0.5%) NEB SOLN NEB SCH ×2 (12:03→18:10)
[2023-02-20] MEDS: IPRATROPIUM BROM 0.5 MG/2.5ML INH SOL NEB SCH ×2 (12:03→18:10)
[2023-02-20] MEDS: ACETYLCYSTEINE 10 %(100MG/ML) SOL 4ML NEB SCH ×2 (12:04→18:11)
[2023-02-20] MEDS: NOREPINEPHRINE 8 MG/250ML KIT 250 ML IV SCH (16:30)
[2023-02-20] MEDS: ENOXAPARIN SOD 30 MG/0.3 ML SYRINGE SC SCH (16:54)
[2023-02-20] MEDS: AMINO ACID INFUSION IN D10W 1,000 ML IV NR (20:48)
[2023-02-20] MEDS: MIDAZOLAM DRIP 50 mg/50mL 50 ML IV SCH (23:00)
[2023-02-21] VITALS (102 sets, daily range): BP systolic 0–183; BP diastolic 0–119; PULSE 88–144; RESP 14–27; TEMP 97–100; O2SAT 97–100
[2023-02-21] MEDS: ACCU-CHEK COMFORT CURVE STRIP VI SCH ×4 (00:28→17:27)
[2023-02-21] MEDS: InsuLIN REG 1unit/0.01ml Soln (100units/ml) SC SCH ×5 (00:32→23:59)
[2023-02-21] MEDS: IPRATROPIUM BROM 0.5 MG/2.5ML INH SOL NEB SCH ×4 (00:32→18:39)
[2023-02-21] MEDS: ALBUTEROL SULF 2.5 MG/0.5ML(0.5%) NEB SOLN NEB SCH ×4 (00:32→18:39)
[2023-02-21] MEDS: ACETYLCYSTEINE 10 %(100MG/ML) SOL 4ML NEB SCH ×4 (00:33→18:39)
[2023-02-21] MEDS ORDERED: dilTIAZem 25 MG/5 ML VIAL IV ONE (03:45)
[2023-02-21 04:05] LABS: Albumin 2.3 g/dL (3.2-4.8); Alkaline Phosphatase 130 U/L (46-116); Anion Gap 10 (5-15); Aspartate Aminotransferase < 8 U/L (13-40); BUN/Creatinine Ratio 15.1 (10.0-20.0); Basophils # (auto) 0 10 ^3/uL (0-0.2); Basophils % (auto) 0.1 % (0.0-2.0); Bilirubin, Total 0.2 mg/dL (0.2-1.0); Blood Urea Nitrogen 53 mg/dL (9-23); Calcium 7.2 mg/dL (8.7-10.4); Carbon Dioxide 19 mmol/L (20-30); Chloride 104 mmol/L (98-107); Eosinophils # (auto) 0.1 10 ^3/uL (0-0.8); Eosinophils % (auto) 0.4 % (0.0-7.0); Glucose 172 mg/dL (74-106); Hematocrit 30.8 % (36.0-46.0); Hemoglobin 10.2 g/dL (12.2-16.2); Lymphocytes # (auto) 1.1 10 ^3/uL (0.4-5.4); Lymphocytes % (auto) 6.6 % (10.0-50.0); Magnesium 1.6 mg/dL (1.6-2.6); Mean Corpuscular Hemoglobin 28.9 pg (28.0-32.0); Mean Corpuscular Hgb Conc. 33.1 g/dL (32.0-36.0); Mean Corpuscular Volume 87.3 fL (80.0-100.0); Monocytes # (auto) 0.6 10 ^3/uL (0-1.3); Monocytes % (auto) 3.4 % (0.0-12.0); Neutrophils # (auto) 15.3 10 ^3/uL (1.6-8.6); Neutrophils % (auto) 89.5 % (37.0-80.0); Nucleated Red Blood Cells % 0.1 %; Phosphorus 2.4 mg/dL (2.4-5.1); Red Blood Cells 3.53 10^6/uL (4.0-5.20); Red Cell Distribution Width 15.8 % (11.8-14.3); Total Protein 5.6 g/dL (5.7-8.2); White Blood Cell 17.1 10^3/uL (4.4-10.8)
[2023-02-21 04:06] LABS: Alanine Aminotransferase < 9 U/L (7-40); Sodium 133 mmol/L (136-145)
[2023-02-21] MEDS: PIPERACILLIN-TAZOB 3.375GM 100 ML IV SCH ×2 (04:19→15:22)
[2023-02-21] MEDS: BUMETANIDE 2.5mg/10ml (0.25 mg/ml) INJ IV SCH (07:01)
[2023-02-21] MEDS ORDERED: POTASSIUM CHL 20MEQ/100ML 100 ML IV ONE (07:15)
[2023-02-21] MEDS ORDERED: AMIODARONE BOLUS KIT 100 ML IV ONE (07:15)
[2023-02-21] MEDS ORDERED: AMIODARONE 450mg/250ml AE 250 ML IV SCH (07:30)
[2023-02-21] MEDS ORDERED: LIDOCAINE 2%HCL (LOCAL ANESTH.) INJ 20ML MDV ONE (07:43)
[2023-02-21] MEDS ORDERED: LIDOCAINE 2% JELLY 11ml (GLYDO) ONE (07:43)
[2023-02-21] MEDS ORDERED: EPINEPHrine HCL 1 MG/1 ML AMP ONE (07:44)
[2023-02-21] MEDS ORDERED: GLYCOPYRROLATE 0.2 MG/ML 1ML VIAL ONE ×2 (07:45→07:51)
[2023-02-21] MEDS ORDERED: fentaNYL CITRATE 100 MCG/2 ML VL ONE (07:49)
[2023-02-21 08:09] LABS: Base Excess -7.2 mmol/L (-2.0-2.0)
[2023-02-21] MEDS ORDERED: AMIODARONE 450mg/250ml AE 250 ML IV ONE (08:32)
[2023-02-21] MEDS: AMIODARONE 450mg/250ml AE 250 ML IV SCH ×2 (09:11→13:41)
[2023-02-21] MEDS: SODIUM BICARBONATE 50ML VIAL 50 ML in SOD CHL 0.45% 1,000 ML IV SCH ×2 (09:25→18:58)
[2023-02-21] MEDS: PROPOFOL 100 ML IV SCH (09:45)
[2023-02-21] MEDS: NOREPINEPHRINE 8 MG/250ML KIT 250 ML IV SCH (11:16)
[2023-02-21] MEDS: MAGNESIUM SULFATE 1GM/100ML 100 ML IV SCH ×2 (11:17→12:14)
[2023-02-21] MEDS: FLORASTOR (S. BOULARDII) 250 MG CAP PO SCH (11:30)
[2023-02-21] MEDS: ENOXAPARIN SOD 30 MG/0.3 ML SYRINGE SC SCH (11:30)
[2023-02-21] MEDS: PANTOPRAZOLE 40 MG/10 ML VIAL INJ IV SCH ×2 (11:30→22:05)
[2023-02-21] MEDS: LINEZOLID 600MG/300ML 300 ML IV SCH ×2 (11:31→22:05)
[2023-02-21] MEDS ORDERED: MAGNESIUM SULFATE 1GM/100ML 100 ML IV ONE (14:30)
[2023-02-21] MEDS ORDERED: POTASSIUM PHOSPHATE 44 MEQ in D5W 5% 250 ML IV ONE (14:30)
[2023-02-21] MEDS ORDERED: POTASSIUM PHOSPHATE 22 MEQ in SODIUM CHL 0.9% 100 ML IV ONE (14:30)
[2023-02-21] MEDS: AMINO ACID INFUSION IN D10W 1,000 ML IV NR (19:55)
[2023-02-22] VITALS (107 sets, daily range): BP systolic 86–189; BP diastolic 14–93; PULSE 83–107; RESP 14–24; TEMP 97.7–99.1; O2SAT 97–100
[2023-02-22] MEDS: ALBUTEROL SULF 2.5 MG/0.5ML(0.5%) NEB SOLN NEB SCH ×5 (00:31→23:50)
[2023-02-22] MEDS: IPRATROPIUM BROM 0.5 MG/2.5ML INH SOL NEB SCH ×5 (00:31→23:50)
[2023-02-22] MEDS: ACETYLCYSTEINE 10 %(100MG/ML) SOL 4ML NEB SCH ×2 (00:32→05:39)
[2023-02-22] MEDS: PIPERACILLIN-TAZOB 3.375GM 100 ML IV SCH ×2 (03:54→15:11)
[2023-02-22] MEDS: PROPOFOL 100 ML IV SCH (03:54)
[2023-02-22 04:16] LABS: Basophils # (auto) 0 10 ^3/uL (0-0.2); Basophils % (auto) 0.1 % (0.0-2.0); Eosinophils # (auto) 0.1 10 ^3/uL (0-0.8); Eosinophils % (auto) 0.6 % (0.0-7.0); Hematocrit 27.8 % (36.0-46.0); Lymphocytes # (auto) 1.1 10 ^3/uL (0.4-5.4); Lymphocytes % (auto) 5.2 % (10.0-50.0); Mean Corpuscular Hemoglobin 28.4 pg (28.0-32.0); Mean Corpuscular Hgb Conc. 32.5 g/dL (32.0-36.0); Mean Corpuscular Volume 87.5 fL (80.0-100.0); Monocytes # (auto) 0.5 10 ^3/uL (0-1.3); Monocytes % (auto) 2.4 % (0.0-12.0); Neutrophils # (auto) 19.5 10 ^3/uL (1.6-8.6); Neutrophils % (auto) 91.7 % (37.0-80.0); Nucleated Red Blood Cells % 0.1 %; Red Blood Cells 3.18 10^6/uL (4.0-5.20); Red Cell Distribution Width 15.8 % (11.8-14.3); White Blood Cell 21.3 10^3/uL (4.4-10.8)
[2023-02-22 04:24] LABS: Calcium 6.9 mg/dL (8.7-10.4); Chloride 97 mmol/L (98-107); Potassium 3.5 mmol/L (3.5-5.1)
[2023-02-22 04:25] LABS: Anion Gap 9 (5-15); Carbon Dioxide 19 mmol/L (20-30)
[2023-02-22 04:31] LABS: BUN/Creatinine Ratio 16.5 (10.0-20.0); Blood Urea Nitrogen 53 mg/dL (9-23); Glucose 186 mg/dL (74-106)
[2023-02-22 04:42] LABS: Sodium 125 mmol/L (136-145)
[2023-02-22] MEDS: SODIUM BICARBONATE 50ML VIAL 50 ML in SOD CHL 0.45% 1,000 ML IV SCH ×3 (04:52→18:03)
[2023-02-22] MEDS: AMIODARONE 450mg/250ml AE 250 ML IV SCH ×2 (04:52→07:18)
[2023-02-22] MEDS: ACCU-CHEK COMFORT CURVE STRIP VI SCH ×4 (06:12→17:16)
[2023-02-22] MEDS: BUMETANIDE 2.5mg/10ml (0.25 mg/ml) INJ IV SCH (06:12)
[2023-02-22] MEDS: InsuLIN REG 1unit/0.01ml Soln (100units/ml) SC SCH ×3 (06:17→17:16)
[2023-02-22 07:54] LABS: Base Excess -7.2 mmol/L (-2.0-2.0)
[2023-02-22 08:29] LABS: INR 1.26 (0.9-1.15); Partial Thromboplastin Time 44.7 SEC (24.5-34.5)
[2023-02-22] MEDS: PANTOPRAZOLE 40 MG/10 ML VIAL INJ IV SCH ×2 (09:23→21:45)
[2023-02-22] MEDS: ENOXAPARIN SOD 30 MG/0.3 ML SYRINGE SC SCH (09:24)
[2023-02-22] MEDS: FLORASTOR (S. BOULARDII) 250 MG CAP PO SCH (09:24)
[2023-02-22] MEDS: LINEZOLID 600MG/300ML 300 ML IV SCH ×2 (09:24→21:45)
[2023-02-22] MEDS ORDERED: FLUCONAZOLE 200MG/100ML 100 ML IV ONE (11:15)
[2023-02-22] MEDS ORDERED: IOHEXOL 350 MG/ML 100ML IJ ONE (13:05)
[2023-02-22] MEDS ORDERED: LIDOCAINE 2%HCL (LOCAL ANESTH.) INJ 20ML MDV ONE (13:05)
[2023-02-22] MEDS ORDERED: ANGIOMAX 250 MG VIAL IV ONE (13:11)
[2023-02-22] MEDS ORDERED: SODIUM CHL 0.9% 0 ML ONE (13:12)
[2023-02-22 13:47] LABS: Magnesium 1.8 mg/dL (1.6-2.6)
[2023-02-22 13:48] LABS: Phosphorus 3.7 mg/dL (2.4-5.1)
[2023-02-22] MEDS: NOREPINEPHRINE 8 MG/250ML KIT 250 ML IV SCH (16:30)
[2023-02-22] MEDS: MIDAZOLAM DRIP 50 mg/50mL 50 ML IV SCH ×2 (21:39→23:00)
[2023-02-22] MEDS: AMINO ACID INFUSION IN D10W 1,000 ML IV NR (21:45)
[2023-02-23] VITALS (107 sets, daily range): BP systolic 93–139; BP diastolic 14–76; PULSE 84–101; RESP 15–29; TEMP 88.9–99; O2SAT 96–100
[2023-02-23] MEDS: ACCU-CHEK COMFORT CURVE STRIP VI SCH ×4 (00:32→17:50)
[2023-02-23] MEDS: PROPOFOL 100 ML IV SCH ×2 (00:33→17:44)
[2023-02-23] MEDS: InsuLIN REG 1unit/0.01ml Soln (100units/ml) SC SCH ×4 (00:35→17:54)
[2023-02-23] MEDS: PIPERACILLIN-TAZOB 3.375GM 100 ML IV SCH (04:10)
[2023-02-23 04:29] LABS: Basophils # (auto) 0 10 ^3/uL (0-0.2); Eosinophils # (auto) 0.1 10 ^3/uL (0-0.8); Eosinophils % (auto) 0.5 % (0.0-7.0); Hematocrit 28.1 % (36.0-46.0); Hemoglobin 9.4 g/dL (12.2-16.2); Lymphocytes # (auto) 0.6 10 ^3/uL (0.4-5.4); Lymphocytes % (auto) 3.1 % (10.0-50.0); Mean Corpuscular Hgb Conc. 33.3 g/dL (32.0-36.0); Mean Corpuscular Volume 87.1 fL (80.0-100.0); Monocytes # (auto) 0.4 10 ^3/uL (0-1.3); Neutrophils # (auto) 18.8 10 ^3/uL (1.6-8.6); Neutrophils % (auto) 94.4 % (37.0-80.0); Red Blood Cells 3.23 10^6/uL (4.0-5.20); White Blood Cell 19.9 10^3/uL (4.4-10.8)
[2023-02-23 04:44] LABS: Alkaline Phosphatase 189 U/L (46-116); Anion Gap 9 (5-15); Aspartate Aminotransferase < 8 U/L (13-40); BUN/Creatinine Ratio 17.3 (10.0-20.0); Bilirubin, Total 0.3 mg/dL (0.2-1.0); Blood Urea Nitrogen 53 mg/dL (9-23); Calcium 6.9 mg/dL (8.7-10.4); Carbon Dioxide 20 mmol/L (20-30); Chloride 93 mmol/L (98-107); Glucose 130 mg/dL (74-106); Magnesium 1.8 mg/dL (1.6-2.6); Phosphorus 3.3 mg/dL (2.4-5.1); Potassium 3.1 mmol/L (3.5-5.1); Sodium 122 mmol/L (136-145)
[2023-02-23 04:47] LABS: Alanine Aminotransferase < 9 U/L (7-40)
[2023-02-23] MEDS: BUMETANIDE 2.5mg/10ml (0.25 mg/ml) INJ IV SCH ×2 (06:07→22:27)
[2023-02-23] MEDS: IPRATROPIUM BROM 0.5 MG/2.5ML INH SOL NEB SCH ×3 (06:48→18:39)
[2023-02-23] MEDS: ALBUTEROL SULF 2.5 MG/0.5ML(0.5%) NEB SOLN NEB SCH ×3 (06:48→18:39)
[2023-02-23 07:18] LABS: Base Excess -6.5 mmol/L (-2.0-2.0)
[2023-02-23] MEDS: AMIODARONE 450mg/250ml AE 250 ML IV SCH ×2 (09:32→22:25)
[2023-02-23] MEDS ORDERED: FLUCONAZOLE 200MG/100ML 100 ML IV SCH (10:00)
[2023-02-23] MEDS: ENOXAPARIN SOD 30 MG/0.3 ML SYRINGE SC SCH (10:23)
[2023-02-23] MEDS: PANTOPRAZOLE 40 MG/10 ML VIAL INJ IV SCH ×2 (10:24→22:27)
[2023-02-23] MEDS: LINEZOLID 600MG/300ML 300 ML IV SCH ×2 (10:24→22:25)
[2023-02-23] MEDS: FLORASTOR (S. BOULARDII) 250 MG CAP PO SCH (10:24)
[2023-02-23] MEDS ORDERED: FUROSEMIDE 40 MG/4 ML VIAL IV ONE (10:45)
[2023-02-23] MEDS: POTASSIUM CHL 20MEQ/100ML 100 ML IV SCH ×3 (11:03→14:35)
[2023-02-23] MEDS ORDERED: ALBUMIN 25% 50 ML IV ONE (14:15)
[2023-02-23] MEDS ORDERED: METOCLOPRAMIDE HCL 5MG/ml INJ 2ml VIAL IV ONE (14:15)
[2023-02-23 14:49] LABS: Urine Bacteria MANY /hpf (None Seen); Urine Blood 2+ /uL (Negative); Urine Clarity CLOUDY (Clear); Urine Color Yellow (Yellow); Urine Protein, UAD 1+ (Negative); Urine Specific Gravity 1.016 (1.001-1.035); Urine Urobilinogen Normal (Negative); Urine WBC 1535 /hpf (0 - 5); Urine WBC Clumps PRESENT /hpf (None Seen)
[2023-02-23] MEDS ORDERED: SODIUM CHLORIDE 0.9% 500 ML IV ONE (15:30)
[2023-02-23] MEDS: cefTRIAXone 1GM/50ML D5W 50 ML IV SCH (15:51)
[2023-02-23] MEDS ORDERED: MICAFUNGIN SODIUM 100 MG in SODIUM CHL 0.9% 100 ML IV ONE (17:15)
[2023-02-23 18:51] LABS: Urine Bacteria FEW /hpf (None Seen); Urine Blood 3+ /uL (Negative); Urine Budding Yeast MANY /hpf (None Seen); Urine Clarity CLOUDY (Clear); Urine Color Yellow (Yellow); Urine Protein, UAD 1+ (Negative); Urine Urobilinogen Normal (Negative); Urine WBC 1349 /hpf (0 - 5); Urine WBC Clumps PRESENT /hpf (None Seen); Urine pH 5.5 (5.0-8.0)
[2023-02-23] MEDS: NOREPINEPHRINE 8 MG/250ML KIT 250 ML IV SCH (19:42)
[2023-02-23] MEDS: AMINO ACID INFUSION IN D10W 1,000 ML IV NR (22:25)
[2023-02-23] MEDS: METOCLOPRAMIDE HCL 5MG/ml INJ 2ml VIAL IV SCH (22:27)
[2023-02-23] MEDS: MIDAZOLAM DRIP 50 mg/50mL 50 ML IV SCH (23:00)
[2023-02-24] VITALS (105 sets, daily range): BP systolic 91–169; BP diastolic 10–83; PULSE 80–102; RESP 10–27; TEMP 97.2–99.1; O2SAT 94–100
[2023-02-24] MEDS: ALBUTEROL SULF 2.5 MG/0.5ML(0.5%) NEB SOLN NEB SCH ×4 (00:15→18:07)
[2023-02-24] MEDS: IPRATROPIUM BROM 0.5 MG/2.5ML INH SOL NEB SCH ×4 (00:15→18:07)
[2023-02-24] MEDS: ACCU-CHEK COMFORT CURVE STRIP VI SCH ×5 (00:27→23:39)
[2023-02-24] MEDS: InsuLIN REG 1unit/0.01ml Soln (100units/ml) SC SCH ×5 (00:35→23:36)
[2023-02-24 04:14] LABS: Basophils # (auto) 0 10 ^3/uL (0-0.2); Eosinophils # (auto) 0.1 10 ^3/uL (0-0.8); Eosinophils % (auto) 0.5 % (0.0-7.0); Hematocrit 25.8 % (36.0-46.0); Hemoglobin 8.5 g/dL (12.2-16.2); Lymphocytes # (auto) 0.7 10 ^3/uL (0.4-5.4); Lymphocytes % (auto) 4.7 % (10.0-50.0); Mean Corpuscular Hemoglobin 28.6 pg (28.0-32.0); Mean Corpuscular Volume 86.6 fL (80.0-100.0); Monocytes # (auto) 0.2 10 ^3/uL (0-1.3); Monocytes % (auto) 1.1 % (0.0-12.0); Neutrophils # (auto) 14.8 10 ^3/uL (1.6-8.6); Neutrophils % (auto) 93.7 % (37.0-80.0); Nucleated Red Blood Cells % 0.1 %; Red Blood Cells 2.97 10^6/uL (4.0-5.20); Red Cell Distribution Width 15.5 % (11.8-14.3); White Blood Cell 15.8 10^3/uL (4.4-10.8)
[2023-02-24 04:27] LABS: Chloride 91 mmol/L (98-107); Potassium 3.8 mmol/L (3.5-5.1)
[2023-02-24 04:28] LABS: Anion Gap 9 (5-15); Carbon Dioxide 17 mmol/L (20-30)
[2023-02-24 04:29] LABS: Calcium 6.7 mg/dL (8.7-10.4)
[2023-02-24 04:33] LABS: GFR African American 20 mL/min; GFR Non-African American 16 mL/min; Glucose 153 mg/dL (74-106)
[2023-02-24 04:34] LABS: BUN/Creatinine Ratio 17.7 (10.0-20.0); Blood Urea Nitrogen 53 mg/dL (9-23); Magnesium 1.7 mg/dL (1.6-2.6)
[2023-02-24 04:35] LABS: Albumin 2.3 g/dL (3.2-4.8)
[2023-02-24 04:36] LABS: Phosphorus 2.7 mg/dL (2.4-5.1)
[2023-02-24 04:39] LABS: Sodium 117 mmol/L (136-145)
[2023-02-24] MEDS: METOCLOPRAMIDE HCL 5MG/ml INJ 2ml VIAL IV SCH ×3 (05:36→21:45)
[2023-02-24 07:42] LABS: Base Excess -6.9 mmol/L (-2.0-2.0)
[2023-02-24] MEDS: FLORASTOR (S. BOULARDII) 250 MG CAP PO SCH (08:35)
[2023-02-24] MEDS: ENOXAPARIN SOD 30 MG/0.3 ML SYRINGE SC SCH (08:35)
[2023-02-24] MEDS: PANTOPRAZOLE 40 MG/10 ML VIAL INJ IV SCH ×2 (08:36→21:44)
[2023-02-24] MEDS: BUMETANIDE 2.5mg/10ml (0.25 mg/ml) INJ IV SCH ×2 (08:36→21:44)
[2023-02-24] MEDS: cefTRIAXone 1GM/50ML D5W 50 ML IV SCH (08:36)
[2023-02-24] MEDS: MICAFUNGIN SODIUM 100 MG in SODIUM CHL 0.9% 100 ML IV SCH (08:37)
[2023-02-24] MEDS: NOREPINEPHRINE 8 MG/250ML KIT 250 ML IV SCH (08:56)
[2023-02-24] MEDS: LINEZOLID 600MG/300ML 300 ML IV SCH ×2 (09:25→21:43)
[2023-02-24] MEDS ORDERED: SODIUM PHOSPHATES 20 MEQ in SODIUM CHL 0.9% 100 ML IV ONE (13:00)
[2023-02-24] MEDS: AMIODARONE 450mg/250ml AE 250 ML IV SCH (13:13)
[2023-02-24] MEDS: Nepro With Carb Steady 1 Liter Bottle GT SCH (15:10)
[2023-02-24] MEDS: MIDAZOLAM DRIP 50 mg/50mL 50 ML IV SCH (21:44)
[2023-02-25] VITALS (100 sets, daily range): BP systolic 100–163; BP diastolic 31–76; PULSE 74–95; RESP 11–26; TEMP 96.3–98.4; O2SAT 99–100
[2023-02-25] MEDS: IPRATROPIUM BROM 0.5 MG/2.5ML INH SOL NEB SCH ×4 (00:11→18:18)
[2023-02-25] MEDS: ALBUTEROL SULF 2.5 MG/0.5ML(0.5%) NEB SOLN NEB SCH ×4 (00:12→18:18)
[2023-02-25] MEDS: AMIODARONE 450mg/250ml AE 250 ML IV SCH ×2 (03:55→18:58)
[2023-02-25 04:13] LABS: Basophils # (auto) 0 10 ^3/uL (0-0.2); Eosinophils # (auto) 0 10 ^3/uL (0-0.8); Eosinophils % (auto) 0.2 % (0.0-7.0); Hematocrit 28.2 % (36.0-46.0); Hemoglobin 9.3 g/dL (12.2-16.2); Lymphocytes # (auto) 0.5 10 ^3/uL (0.4-5.4); Lymphocytes % (auto) 2.8 % (10.0-50.0); Mean Corpuscular Hemoglobin 28.5 pg (28.0-32.0); Mean Corpuscular Hgb Conc. 33.1 g/dL (32.0-36.0); Mean Corpuscular Volume 86.2 fL (80.0-100.0); Monocytes # (auto) 0.3 10 ^3/uL (0-1.3); Monocytes % (auto) 1.5 % (0.0-12.0); Neutrophils % (auto) 95.5 % (37.0-80.0); Nucleated Red Blood Cells % 0.1 %; Red Blood Cells 3.27 10^6/uL (4.0-5.20); Red Cell Distribution Width 15.9 % (11.8-14.3); White Blood Cell 17.7 10^3/uL (4.4-10.8)
[2023-02-25 04:29] LABS: Chloride 91 mmol/L (98-107); Potassium 3.3 mmol/L (3.5-5.1)
[2023-02-25 04:30] LABS: Anion Gap 9 (5-15); Calcium 6.9 mg/dL (8.7-10.4); Carbon Dioxide 16 mmol/L (20-30)
[2023-02-25 04:35] LABS: BUN/Creatinine Ratio 17.8 (10.0-20.0); Blood Urea Nitrogen 56 mg/dL (9-23); Glucose 202 mg/dL (74-106)
[2023-02-25 04:56] LABS: Sodium 116 mmol/L (136-145)
[2023-02-25] MEDS: METOCLOPRAMIDE HCL 5MG/ml INJ 2ml VIAL IV SCH (05:18)
[2023-02-25] MEDS: ACCU-CHEK COMFORT CURVE STRIP VI SCH ×3 (05:22→18:59)
[2023-02-25] MEDS: InsuLIN REG 1unit/0.01ml Soln (100units/ml) SC SCH ×3 (05:27→18:00)
[2023-02-25] MEDS ORDERED: POTASSIUM CHL 20MEQ/100ML 100 ML IV ONE (05:30)
[2023-02-25 08:37] LABS: Base Excess -10.7 mmol/L (-2.0-2.0)
[2023-02-25] MEDS: cefTRIAXone 1GM/50ML D5W 50 ML IV SCH (08:54)
[2023-02-25] MEDS: PROPOFOL 100 ML IV SCH (09:45)
[2023-02-25] MEDS: MICAFUNGIN SODIUM 100 MG in SODIUM CHL 0.9% 100 ML IV SCH (10:01)
[2023-02-25] MEDS: PANTOPRAZOLE 40 MG/10 ML VIAL INJ IV SCH ×2 (10:05→22:50)
[2023-02-25] MEDS: LINEZOLID 600MG/300ML 300 ML IV SCH (10:06)
[2023-02-25] MEDS: FLORASTOR (S. BOULARDII) 250 MG CAP PO SCH (10:06)
[2023-02-25] MEDS: BUMETANIDE 2.5mg/10ml (0.25 mg/ml) INJ IV SCH ×3 (10:06→22:51)
[2023-02-25] MEDS: ENOXAPARIN SOD 30 MG/0.3 ML SYRINGE SC SCH (10:06)
[2023-02-25] MEDS: NOREPINEPHRINE 8 MG/250ML KIT 250 ML IV SCH (16:30)
[2023-02-26] VITALS (109 sets, daily range): BP systolic 96–172; BP diastolic 38–60; PULSE 73–96; RESP 8–24; TEMP 96.3–99.1; O2SAT 100
[2023-02-26] MEDS: IPRATROPIUM BROM 0.5 MG/2.5ML INH SOL NEB SCH ×3 (00:10→19:13)
[2023-02-26] MEDS: ALBUTEROL SULF 2.5 MG/0.5ML(0.5%) NEB SOLN NEB SCH ×4 (00:11→19:13)
[2023-02-26] MEDS: ACCU-CHEK COMFORT CURVE STRIP VI SCH ×4 (00:15→18:02)
[2023-02-26] MEDS: InsuLIN REG 1unit/0.01ml Soln (100units/ml) SC SCH ×4 (06:26→18:00)
[2023-02-26] MEDS: MIDAZOLAM DRIP 50 mg/50mL 50 ML IV SCH ×2 (06:31→21:47)
[2023-02-26 07:08] LABS: Base Excess -9.8 mmol/L (-2.0-2.0)
[2023-02-26] MEDS: AMIODARONE 450mg/250ml AE 250 ML IV SCH (08:19)
[2023-02-26] MEDS: PROPOFOL 100 ML IV SCH (09:45)
[2023-02-26] MEDS ORDERED: levoFLOXacin 250MG 50 ML IV SCH (10:00)
[2023-02-26] MEDS: ENOXAPARIN SOD 30 MG/0.3 ML SYRINGE SC SCH (10:41)
[2023-02-26] MEDS: PANTOPRAZOLE 40 MG/10 ML VIAL INJ IV SCH ×2 (10:41→21:47)
[2023-02-26] MEDS: BUMETANIDE 2.5mg/10ml (0.25 mg/ml) INJ IV SCH ×2 (10:41→21:47)
[2023-02-26] MEDS: FLORASTOR (S. BOULARDII) 250 MG CAP PO SCH (10:42)
[2023-02-26] MEDS: MICAFUNGIN SODIUM 100 MG in SODIUM CHL 0.9% 100 ML IV SCH (10:44)
[2023-02-26] MEDS: NOREPINEPHRINE 8 MG/250ML KIT 250 ML IV SCH (16:30)
[2023-02-26] MEDS: Nepro With Carb Steady 1 Liter Bottle GT SCH (19:46)
[2023-02-27] VITALS (80 sets, daily range): BP systolic 120–190; BP diastolic 30–60; PULSE 73–95; RESP 0–43; TEMP 97.2–99; O2SAT 100
[2023-02-27] MEDS: IPRATROPIUM BROM 0.5 MG/2.5ML INH SOL NEB SCH ×3 (00:04→11:59)
[2023-02-27] MEDS: ALBUTEROL SULF 2.5 MG/0.5ML(0.5%) NEB SOLN NEB SCH ×3 (00:04→11:59)
[2023-02-27] MEDS: AMIODARONE 450mg/250ml AE 250 ML IV SCH (00:42)
[2023-02-27] MEDS: ACCU-CHEK COMFORT CURVE STRIP VI SCH ×3 (00:43→12:00)
[2023-02-27] MEDS: InsuLIN REG 1unit/0.01ml Soln (100units/ml) SC SCH ×3 (05:29→12:00)
[2023-02-27] MEDS: FLORASTOR (S. BOULARDII) 250 MG CAP PO SCH (10:56)
[2023-02-27] MEDS: PANTOPRAZOLE 40 MG/10 ML VIAL INJ IV SCH (10:56)
[2023-02-27] MEDS: BUMETANIDE 2.5mg/10ml (0.25 mg/ml) INJ IV SCH (10:56)
[2023-02-27] MEDS: ENOXAPARIN SOD 30 MG/0.3 ML SYRINGE SC SCH (10:56)
[2023-02-27] MEDS: MICAFUNGIN SODIUM 100 MG in SODIUM CHL 0.9% 100 ML IV SCH (10:56)
== END 2023-02-27 21:13 | DRG 870 ==
LOC: ER 14:13 → EDBD 14:13 → TELE 23:46 → ICU WEST 02-14 04:55
PROVIDERS: ADMIT Nurse Practitioner Family; ATTEND Internal Medicine
PROC: 0BH17EZ Insertion of Endotracheal Airway into Trachea, Via Natural or Artificial Opening (ICD-10-PCS; 2023-02-13)
PROC: 30233N1 Transfusion of Nonautologous Red Blood Cells into Peripheral Vein, Percutaneous Approach (ICD-10-PCS; 2023-02-13)
PROC: 02H633Z Insertion of Infusion Device into Right Atrium, Percutaneous Approach (ICD-10-PCS; 2023-02-13)
PROC: 5A1945Z Respiratory Ventilation, 24-96 Consecutive Hours (ICD-10-PCS; 2023-02-13)
PROC: 5A09357 Assistance with Respiratory Ventilation, Less than 24 Consecutive Hours, Continuous Positive Airway Pressure (ICD-10-PCS; 2023-02-18)
PROC: 5A1935Z Respiratory Ventilation, Less than 24 Consecutive Hours (ICD-10-PCS; 2023-02-18)
PROC: 5A1955Z Respiratory Ventilation, Greater than 96 Consecutive Hours (ICD-10-PCS; principal; 2023-02-19)
PROC: 0B9F8ZZ Drainage of Right Lower Lung Lobe, Via Natural or Artificial Opening Endoscopic (ICD-10-PCS; 2023-02-21)
PROC: 4A023N7 Measurement of Cardiac Sampling and Pressure, Left Heart, Percutaneous Approach (ICD-10-PCS; 2023-02-22)
PROC: B2111ZZ Fluoroscopy of Multiple Coronary Arteries using Low Osmolar Contrast (ICD-10-PCS; 2023-02-22)
PROC: B2151ZZ Fluoroscopy of Left Heart using Low Osmolar Contrast (ICD-10-PCS; 2023-02-22)
DX: A41.9 Sepsis, unspecified organism (principal); E43 Unspecified severe protein-calorie malnutrition; I21.4 Non-ST elevation (NSTEMI) myocardial infarction; J96.01 Acute respiratory failure with hypoxia; G92.8 Other toxic encephalopathy; R65.21 Severe sepsis with septic shock; J69.0 Pneumonitis due to inhalation of food and vomit; N17.9 Acute kidney failure, unspecified; K92.2 Gastrointestinal hemorrhage, unspecified; D62 Acute posthemorrhagic anemia; E87.4 Mixed disorder of acid-base balance; I12.0 Hypertensive chronic kidney disease with stage 5 chronic kidney disease or end stage renal disease; K92.0 Hematemesis; N18.5 Chronic kidney disease, stage 5; I48.20 Chronic atrial fibrillation, unspecified; J98.11 Atelectasis; J44.0 Chronic obstructive pulmonary disease with (acute) lower respiratory infection; E87.1 Hypo-osmolality and hyponatremia; E11.65 Type 2 diabetes mellitus with hyperglycemia; R62.7 Adult failure to thrive; G30.9 Alzheimer's disease, unspecified; E11.22 Type 2 diabetes mellitus with diabetic chronic kidney disease; E78.5 Hyperlipidemia, unspecified; E83.51 Hypocalcemia; E86.0 Dehydration; E87.6 Hypokalemia; F02.80 Dementia in other diseases classified elsewhere, unspecified severity, without behavioral disturbance, psychotic disturbance, mood disturbance, and anxiety; K59.00 Constipation, unspecified; Z90.710 Acquired absence of both cervix and uterus; Z90.49 Acquired absence of other specified parts of digestive tract; Z83.3 Family history of diabetes mellitus; Z82.49 Family history of ischemic heart disease and other diseases of the circulatory system; Z68.25 Body mass index [BMI] 25.0-25.9, adult; E87.8 Other disorders of electrolyte and fluid balance, not elsewhere classified; E83.42 Hypomagnesemia; E83.39 Other disorders of phosphorus metabolism; E88.09 Other disorders of plasma-protein metabolism, not elsewhere classified; E87.70 Fluid overload, unspecified
CPT/HCPCS: 31500; 36415; 36556; 36600; 71045; 74176; 76775; 80048; 80053; 80069; 81001; 82150; 82533; 82550; 82570; 82607; 82805; 82962; 83036; 83605; 83690; 83735; 83880; 83930; 83935; 84100; 84132; 84156; 84300; 84443; 84484; 85025; 85610; 85652; 85730; 86850; 86900; 86901; 86920; 87040; 87070; 87077; 87081; 87086; 87088; 87186; 87205; 87493; 93005; 93306; 93458; 94002; 94003; 94640; 94660; 96365; 96375; 97163; 99152; 99291; C9113; G0378; J0171; J0330; J0696; J1450; J1815; J2248; J2250; J2543; J2704; J3480; J3490; J7060; P9047